=== PATIENT | female | born 1950 | race Caucasian/White ===

== ENCOUNTER 2019-02-02 11:51 | Inpatient (IN) | payer MEDICARE, BC, SELFPAY ==
[2019-02-02] VITALS (12 sets, daily range): BP systolic 89–121; BP diastolic 52–76; PULSE 68–94; RESP 14–22; TEMP 35.6–37.5; O2SAT 96–100; BMI 13.6
--- NOTE | 2019-02-02 | DI.CT.S_ITS ---
PROCEDURE: CT ANGIO CHEST ABDOMEN PELVIS INDICATIONS: RUQ abd pain, cachectic, BMI 13.6 TECHNIQUE: Precontrast 5 mm thick sections acquired from the lung apices to the iliac crests. After the administration of intravenous contrast, 2.5 mm thick sections again acquired from the lung apices to the iliac crests. Maximum intensity projection (MIP) oblique sagittal and coronal reformats were then acquired. For radiation dose reduction, the following was used: automated exposure control. COMPARISON: None. FINDINGS: Image quality: Excellent. AORTA and its attachments: Ascending aorta is normal in caliber without dissection or significant stenosis. Classic 3 vessel arch anatomy. Great vessel origins are widely patent. Transverse arch and descending thoracic aorta are normal in caliber without dissection. There is diffuse atherosclerosis of the abdominal aorta without significant stenosis. There is bilateral iliac disease. There is probable significant proximal left external iliac artery stenosis. There is mild celiac stenosis and moderate SMA stenosis. CHEST: Lungs and pleura: No acute airspace opacities. There is a metastatic nodule in the medial segment of the right middle lobe measuring 1 cm. It abuts the pleura. No pleural effusions or pneumothorax. Central and peripheral airways are patent and normal in caliber. Mediastinum: Heart size is normal. No pericardial effusion. There is a large mediastinal metastatic mass immediately to the left of the main pulmonary artery. It measures 4.3 x 2.6 cm. There is a Central pulmonary arteries are normal in size. Esophagus is normal in caliber. No hiatal hernias. Bones and chest wall: No axillary adenopathy by size criteria. theNo suspicious bony lesions. No vertebral body compression fractures. ABDOMEN: Vasculature: Celiac trunk and mesenteric arteries are patent. Renal arteries are also patent. Solid organs: There is a huge left renal mass consistent with a renal cell carcinoma measuring 6.9 x 12.2 x 9.7 cm. And obstructs the left kidney, with marked left hydronephrosis. The left adrenal contains 2 very large metastatic lesions, measuring 6.4 x 4.2 cm and 4.6 x 3.5 cm respectively. There is a very large bulky left para-aortic lymphadenopathy. The largest sin mediastinal metastatic lesion, gle left para-aortic lymph node measures 6.1 x 5.1 cm. It deviates the aorta to the right. There is probable liver metastatic disease. This is not definite. Gallbladder is unremarkable. Biliary system is non dilated. Pancreas enhances normally. Spleen is normal in size and enhancement. No adrenal nodules. Both kidneys are normal in size and enhancement, without hydronephrosis. Peritoneum and bowel: No free fluid or air. Bowel loops are normal in caliber and wall thickness. Nodes and vessels: Massive left periaortic lymphadenopathy as described above. Inferior vena cava is normal in morphology. Miscellaneous: No ventral hernias. Large PELVIS: Genitourinary: Bladder wall thickness is normal. Miscellaneous: No inguinal hernias or adenopathy. No ventral hernias. Bones: No suspicious bony lesions. No vertebral body compression fractures. IMPRESSION: 1. Massive left renal cell carcinoma, which obstructs the left kidney, resulting in marked hydronephrosis. 2. Large mediastinal metastatic lesion, right pulmonary metastatic lesion. 3. There are 2 very large left adrenal metastatic lesions. 4. Massive left para-aortic metastatic adenopathy, deviating the aorta to the right. 5. Unremarkable thoracic aorta. Abdominal aorta has atherosclerotic disease. There is probable left iliac stenotic disease. Dictated by: Shu Duff (aortic lymphadenopathy which deviates the aorta to the right. It measures 6.1 x 5.1 cm. on 02/02/2019 at 21:59 Approved by: Aaron Gutierrez M.D. on 02/02/2019 at 22:16
--- NOTE | 2019-02-02 12:22 | ED.WEAKNESS ---
HPI - Weakness General Chief complaint: Weakness Stated complaint: Not eating/passed out Time Seen by Provider: 02/02/19 12:12 Source: patient and family (,grand daughter) Mode of arrival: wheelchair Limitations: no limitations History of Present Illness HPI Narrative: This is a 68-year-old female who was with her family today and had an episode where she passed out while sitting down for breakfast. states that she has been falling down frequently, possibly multiple episodes of syncope. Patient has not been eating much. Family states she has not been eating much for several months. Patient is extremely underweight. Patient states she is just not hungry. She has family states she has often complaining of pain, she describes in her right ovary. Patient states she does have some pain sort of in her chest. Patient states she always feels a little short of breath. she denies any nausea or vomiting. she states she often has diarrhea. She states she has been urinating. She does smoke about a pack per day. Patient was drinking 2-3 containers of boxed wine weekly until recently, she has since decreased. She has a family history of cancer with her mother dying of cancer. She had surgery with ovarian cyst removal. Per family about 10 years ago patient had sort of a seizure like episode and after that she was not normal, the states she was sort of confused and out of it for a very long time. He states more recently she has actually been with it and appropriate. He states she does not talk to her regularly. She has not seen a physician in 8 or 9 years. Related Data Home Medications Medication Instructions Recorded Confirmed naproxen sodium [Aleve] 440 mg PO BIDCC #0 10/05/12 02/02/19 Allergies Allergy/AdvReac Type Severity Reaction Status Date / Time Lidocaine Allergy Unknown Uncoded 01/23/18 12:58 Procaine Allergy Unknown Uncoded 01/23/18 12:58 SULFA (sulfonamide) AdvReac Unknown Uncoded 01/23/18 12:58 Review of Systems Review of Systems ROS Unobtainable: All systems reviewed & are unremarkable except as noted in HPI and below Constitutional Denies chills, Reports fatigue, Denies fever(s), Denies lethargy and Denies weakness Cardiovascular Reports chest pain, Denies chest pain at rest, Denies diaphoresis, Reports syncope, Denies rapid heart rate, Denies edema, Reports dyspnea and Denies orthopnea Respiratory Denies chest congestion, Reports cough, Denies excessive phlegm production, Reports dyspnea and Denies wheezing Gastrointestinal Gastrointestinal: Denies abdominal pain, Denies change in bowel habits, Reports diarrhea (Office in daily basis), Denies nausea and Denies vomiting Genitourinary Denies hematuria, Denies urinary frequency, Denies flank pain, Denies urinary incontinence, Denies urinary hesitancy and Denies urinary urgency Neurologic Reports syncope and Denies weakness Endocrine Reports change in body appearance (weight loss.), Reports cold intolerance and Reports fatigue Allergic/Immunologic Denies wheezing PFSH Social History Smoking Status: Current every day smoker Social History household members: spouse Smoking Status: Current every day smoker Exam Narrative Exam Narrative: GEN: Extremely cachectic female, alert and oriented, patient appears to be in mild distress. Strong smell of tobacco smoke. HEENT: Atraumatic, pupils are equal round reactive to light, extraocular movements are intact, nares are clear, dry mucous membranes. HEART: Regular rate and rhythm without murmur, clicks, rubs. Pulses are equal in upper and lower extremities LUNGS:Lungs clear to auscultation, no wheezes, rales, crackles, chest moves symmetrically, no tachypnea, no crackles wheezes or rales. ABD:bowel sounds normal, abdomen concave, non-tender, no guarding, rebound, rigidity, no masses noted, no hepatosplenomegaly :No CVA tenderness MSCL: Non-tender, generalized muscle atrophy, full range of motion of upper extremities. NEURO:CN 2-12 intact, sensation normal SKIN: hyperpigmented skin. Initial Vital Signs Initial Vital Signs: Vital Signs Temperature 96.1 F L 02/02/19 12:14 Pulse Rate 94 H 02/02/19 12:14 Respiratory Rate 15 02/02/19 12:14 Blood Pressure 96/62 02/02/19 12:14 Pulse Oximetry 100 02/02/19 12:14 Course Orders Ordered: ED Orders 02/02/19 12:41 XR chest 1V Stat 02/02/19 13:04 Ammonia (NH3) Stat Complete Blood Count AUTO DIFF Stat Comprehensive Metabolic Panel Stat Thyroid Stimulating Hormone Stat Troponin & CK Cardiac Panel Stat 02/02/19 14:16 Lactate (Lactic Acid) Stat Partial Thromboplastin Time Stat Prothrombin Time INR Stat 02/02/19 15:46 Ictotest Urine Stat Urinalysis and Microscopic Stat Urine Culture Stat 02/02/19 17:52 Education, smoking cessation ONGOING Discontinued Medications Sodium Chloride (Normal Saline 0.9%) 1,000 mls @ 1,000 mls/hr IV BOLUS ONE Stop: 02/02/19 13:39 Last Infusion: 02/02/19 13:51 Dose: 0 mls/hr Admin: 02/02/19 12:45 Dose: 1,000 mls/hr Sodium Chloride (Normal Saline 0.9%) 500 mls @ 1,000 mls/hr IV BOLUS ONE Stop: 02/02/19 14:26 Last Infusion: 02/02/19 16:58 Dose: 0 mls/hr Admin: 02/02/19 14:02 Dose: 1,000 mls/hr Vital Signs - 8 hr 02/02/19 12:14 02/02/19 12:30 02/02/19 13:08 Temperature 96.1 F L Pulse Rate 94 H 77 77 Respiratory Rate 15 18 22 Blood Pressure 96/62 Blood Pressure [Right Arm] 90/63 94/60 Pulse Oximetry 100 100 98 02/02/19 13:30 02/02/19 14:00 02/02/19 14:51 Temperature Pulse Rate 82 79 68 Respiratory Rate 14 21 15 Blood Pressure Blood Pressure [Right Arm] 101/57 L 108/68 121/76 Pulse Oximetry 100 97 99 02/02/19 16:00 02/02/19 16:30 02/02/19 17:14 Temperature Pulse Rate 70 69 78 Respiratory Rate 15 15 16 Blood Pressure Blood Pressure [Right Arm] 105/71 98/60 113/74 Pulse Oximetry 96 02/02/19 17:50 Temperature 99.5 F Pulse Rate 85 Respiratory Rate 18 Blood Pressure 109/68 Blood Pressure [Right Arm] Pulse Oximetry 100 MDM - Weakness Lab Data Attestation: I reviewed the patient's lab results. Result diagrams: 02/02/19 13:04 02/02/19 13:04 Lab Results 02/02/19 02/02/19 02/02/19 Range/Units 13:04 13:04 13:04 WBC 11.9 H (4.5-11.0) X10^3/uL RBC 4.18 (4.0-5.2) X10^6/uL Hgb 10.3 L (12.0-16.0) g/dL Hct 33.3 L (36-46) % MCV 79.7 L (80-100) fL MCH 24.7 L (26-34) PG MCHC 31.0 (30-36) % RDW 16.9 H (11.6-14.8) % Plt Count 305 (150-400) X10^3/uL Neut % (Auto) 84.4 H (50-75) % Lymph % (Auto) 7.8 L (25-40) % [place] % (Auto) 7.2 (3-14) % Eos % (Auto) 0.2 L (2-4) % Baso % (Auto) 0.4 (0-2) % Neut # (Auto) 17778 H (6202-2378) /uL Lymph # (Auto) 900 L (3518-6148) /uL [place] # (Auto) 900 (0-900) /uL Eos # (Auto) 0 (0-450) /uL Baso # (Auto) 0 (0-100) /uL PT (10.1-12.7) SECONDS INR (0.9-1.3) APTT (26.4-36.2) SECONDS Sodium 132 L (137-145) mmol/L Potassium 5.1 (3.4-5.1) mmol/L Chloride 99 (98-107) mmol/L Carbon Dioxide 20 L (22-32) mmol/L BUN 28 H (7-17) mg/dL Creatinine 1.30 H (0.52-1.04) mg/dL Estimated GFR 40.6 L (>60) mL/min BUN/Creatinine Ratio 21.5 (6-22) Glucose 120 H (80-110) mg/dL Lactate (0.7-2.1) mmol/L Calcium 9.0 (8.4-10.2) mg/dL Total Bilirubin 0.3 (0.2-1.3) mg/dL AST 26 (14-36) IU/L ALT 8 L (9-52) IU/L Alkaline Phosphatase 96 (38-126) U/L Ammonia < 9.0 L (9-30) umol/L Total Creatine Kinase 167 H (30-135) U/L CK-MB (CK-2) 2.03 (<2.37) ng/mL CK-MB (CK-2) Rel Index 1.2 L (1.5-5.0) % Troponin I < 0.012 (0.01-0.034) ng/mL Total Protein 7.1 (6.3-8.2) g/dL Albumin 3.1 L (3.5-5.0) g/dL Globulin 4.0 (1.7-4.1) g/dL Albumin/Globulin Ratio 0.8 L (1.0-2.8) TSH (0.47-4.68) uIU/mL Urine Color Urine Appearance Urine pH (4.5-8.0) Ur Specific [place] (1.000-1.035) Urine Protein (Negative) Urine Glucose (UA) (Negative) g/dL Urine Ketones (NEGATIVE) Urine Occult Blood (Negative) Urine Nitrate (Negative) Urine Bilirubin (NEGATIVE) Urine Ictotest (Negative) Urine Urobilinogen (0.2) E.U./dL Ur Leukocyte Esterase (NEGATIVE) Urine RBC (0-5/HPF) Urine WBC (0-5/HPF) Ur Squamous Epith Cells (0-5/HPF) Amorphous Sediment Urine Bacteria (None) Hyaline Casts (None) Urine Mucus (Negative) Ur Culture Indicated? 02/02/19 02/02/19 02/02/19 Range/Units 13:04 14:16 14:16 WBC (4.5-11.0) X10^3/uL RBC (4.0-5.2) X10^6/uL Hgb (12.0-16.0) g/dL Hct (36-46) % MCV (80-100) fL MCH (26-34) PG MCHC (30-36) % RDW (11.6-14.8) % Plt Count (150-400) X10^3/uL Neut % (Auto) (50-75) % Lymph % (Auto) (25-40) % [place] % (Auto) (3-14) % Eos % (Auto) (2-4) % Baso % (Auto) (0-2) % Neut # (Auto) (2989-2365) /uL Lymph # (Auto) (2854-0601) /uL [place] # (Auto) (0-900) /uL Eos # (Auto) (0-450) /uL Baso # (Auto) (0-100) /uL PT 12.8 H (10.1-12.7) SECONDS INR 1.1 (0.9-1.3) APTT 27 (26.4-36.2) SECONDS Sodium (137-145) mmol/L Potassium (3.4-5.1) mmol/L Chloride (98-107) mmol/L Carbon Dioxide (22-32) mmol/L BUN (7-17) mg/dL Creatinine (0.52-1.04) mg/dL Estimated GFR (>60) mL/min BUN/Creatinine Ratio (6-22) Glucose (80-110) mg/dL Lactate 2.1 (0.7-2.1) mmol/L Calcium (8.4-10.2) mg/dL Total Bilirubin (0.2-1.3) mg/dL AST (14-36) IU/L ALT (9-52) IU/L Alkaline Phosphatase (38-126) U/L Ammonia (9-30) umol/L Total Creatine Kinase (30-135) U/L CK-MB (CK-2) (<2.37) ng/mL CK-MB (CK-2) Rel Index (1.5-5.0) % Troponin I (0.01-0.034) ng/mL Total Protein (6.3-8.2) g/dL Albumin (3.5-5.0) g/dL Globulin (1.7-4.1) g/dL Albumin/Globulin Ratio (1.0-2.8) TSH 6.14 H (0.47-4.68) uIU/mL Urine Color Urine Appearance Urine pH (4.5-8.0) Ur Specific [place] (1.000-1.035) Urine Protein (Negative) Urine Glucose (UA) (Negative) g/dL Urine Ketones (NEGATIVE) Urine Occult Blood (Negative) Urine Nitrate (Negative) Urine Bilirubin (NEGATIVE) Urine Ictotest (Negative) Urine Urobilinogen (0.2) E.U./dL Ur Leukocyte Esterase (NEGATIVE) Urine RBC (0-5/HPF) Urine WBC (0-5/HPF) Ur Squamous Epith Cells (0-5/HPF) Amorphous Sediment Urine Bacteria (None) Hyaline Casts (None) Urine Mucus (Negative) Ur Culture Indicated? 02/02/19 Range/Units 15:46 WBC (4.5-11.0) X10^3/uL RBC (4.0-5.2) X10^6/uL Hgb (12.0-16.0) g/dL Hct (36-46) % MCV (80-100) fL MCH (26-34) PG MCHC (30-36) % RDW (11.6-14.8) % Plt Count (150-400) X10^3/uL Neut % (Auto) (50-75) % Lymph % (Auto) (25-40) % [place] % (Auto) (3-14) % Eos % (Auto) (2-4) % Baso % (Auto) (0-2) % Neut # (Auto) (7691-0868) /uL Lymph # (Auto) (7281-5979) /uL [place] # (Auto) (0-900) /uL Eos # (Auto) (0-450) /uL Baso # (Auto) (0-100) /uL PT (10.1-12.7) SECONDS INR (0.9-1.3) APTT (26.4-36.2) SECONDS Sodium (137-145) mmol/L Potassium (3.4-5.1) mmol/L Chloride (98-107) mmol/L Carbon Dioxide (22-32) mmol/L BUN (7-17) mg/dL Creatinine (0.52-1.04) mg/dL Estimated GFR (>60) mL/min BUN/Creatinine Ratio (6-22) Glucose (80-110) mg/dL Lactate (0.7-2.1) mmol/L Calcium (8.4-10.2) mg/dL Total Bilirubin (0.2-1.3) mg/dL AST (14-36) IU/L ALT (9-52) IU/L Alkaline Phosphatase (38-126) U/L Ammonia (9-30) umol/L Total Creatine Kinase (30-135) U/L CK-MB (CK-2) (<2.37) ng/mL CK-MB (CK-2) Rel Index (1.5-5.0) % Troponin I (0.01-0.034) ng/mL Total Protein (6.3-8.2) g/dL Albumin (3.5-5.0) g/dL Globulin (1.7-4.1) g/dL Albumin/Globulin Ratio (1.0-2.8) TSH (0.47-4.68) uIU/mL Urine Color Yellow Urine Appearance Cloudy Urine pH 5.0 (4.5-8.0) Ur Specific [place] 1.025 (1.000-1.035) Urine Protein 2+ H (Negative) Urine Glucose (UA) Trace H (Negative) g/dL Urine Ketones Negative (NEGATIVE) Urine Occult Blood 3+ H (Negative) Urine Nitrate Negative (Negative) Urine Bilirubin 2+ H (NEGATIVE) Urine Ictotest Negative (Negative) Urine Urobilinogen 0.2 (0.2) E.U./dL Ur Leukocyte Esterase Trace H (NEGATIVE) Urine RBC 10-30/hpf H (0-5/HPF) Urine WBC 30-100/hpf H (0-5/HPF) Ur Squamous Epith Cells 1-5 /hpf (0-5/HPF) Amorphous Sediment 3+ Urine Bacteria Few (2-10) H (None) Hyaline Casts 1-5/lpf (None) Urine Mucus 1+ H (Negative) Ur Culture Indicated? Specimen cultured Point of Care Testing Glucose POC 133 Imaging Data Chest x-ray: Radiologist's impression: [place] [address] XRay Report Signed Patient: Cali White#: [id number] : 9Acct:[id number] Age/Sex: 68 / FDate of Service: 02/02/19 Loc: ED Accession Number: [id number] Procedure: XR chest 1V Ordering Provider: Chaparrita Miller D.O. PROCEDURE: XR CHEST 1V INDICATIONS: syncope, cachectic TECHNIQUE: One view of the chest was acquired. COMPARISON: [facility], CT, THORAX WITHOUT CONTRAST, 08/19/2009, 11:41. [facility], CR, CHEST 1 VIEW, 09/07/2010, 5:34. FINDINGS: Surgical changes and devices: None. Lungs and pleura: Lungs are clear. No pleural effusions or pneumothorax. Mediastinum: Mediastinal contours appear normal. Heart size is normal. Bones and chest wall: No suspicious bony lesions. Overlying soft tissues appear unremarkable. IMPRESSION: No evidence acute pulmonary process. Dictated by: Aaron Gutierrez M.D. on 02/02/2019 at 13:24 Approved by: Aaron Gutierrez M.D. on 02/02/2019 at 13:25 ECG Data Attestation: I personally reviewed and interpreted this ECG as follows: Interpretation: Difficult to obtain adequate tracing secondary to breathing and patient is very thin body habitus. Patient is the rate is 87, P is 167 QRS is 89 and QTC is 451. No clear ST elevations although there is quite a bit of artifact in V1 2 and 3. MDM Narrative Medical decision making narrative: Patient's lab work shows multiple abnormalities but nothing significant enough to cause her weight loss. Patient is anemic with a hemoglobin of 10, she has a microcytic anemia. Slightly elevated white count, her sodium is 132, bicarb is 20 with a BUN of 28 and creatinine 1.3 she does appear to be dehydrated and was given 2 L of fluid total she had a slight improvement of her blood pressure but continued to be in the low range and dipping into the 90s regularly. This may be somewhat her normal blood pressure as she is so small. Glucose was 120, did get a pneumonia which was less than 9, patient's troponin was negative and her TSH is elevated at 6 although I would expect with her decrease in weight for her to be hyperthyroid and not hypothyroid. Patient continues to feel lightheaded. According to her she has had multiple episodes of falling being found on the floor syncopal episodes in the last week. I did ask social work to evaluate and they suspect there is also a psychiatric component which I agree with. There is concern for cancer as well as variety of other causes. I spoke with Dr. Durand secondary to her syncope risk he is willing to accept her for observation and help her get established with primary and further evaluation. I was clear with patient and family based on her weight if she continues to have weight loss her body will not be able to tolerate and will result in . Discharge Plan Departure Patient Disposition: Admitted as Observation Clinical Impression: Syncope, Weakness, Malnutrition Discharge Date/Time: 02/02/19 17:58 Interventions: ED Discharge Assessment Last Done: 02/02/19 17:57 Referrals: Jose L Menon MD [Primary Care Provider] - Admit Date/Time: 02/02/19 17:39 Admit Provider: Mychal Durand
--- NOTE | 2019-02-02 12:41 | DI.RAD.S_ITS ---
PROCEDURE: XR CHEST 1V INDICATIONS: syncope, cachectic TECHNIQUE: One view of the chest was acquired. COMPARISON: [facility], CT, THORAX WITHOUT CONTRAST, 08/19/2009, 11:41. [facility], CR, CHEST 1 VIEW, 09/07/2010, 5:34. FINDINGS: Surgical changes and devices: None. Lungs and pleura: Lungs are clear. No pleural effusions or pneumothorax. Mediastinum: Mediastinal contours appear normal. Heart size is normal. Bones and chest wall: No suspicious bony lesions. Overlying soft tissues appear unremarkable. IMPRESSION: No evidence acute pulmonary process. Dictated by: Aaron Gutierrez M.D. on 02/02/2019 at 13:24 Approved by: Aaron Gutierrez M.D. on 02/02/2019 at 13:25
[2019-02-02] MEDS: SODIUM CHLORIDE 0.9% 1,000 ML 1000 ML IV (12:45)
--- NOTE | 2019-02-02 12:47 | ED_ITS ---
HPI - Weakness General Chief complaint: Weakness Stated complaint: Not eating/passed out Time Seen by Provider: 02/02/19 12:12 Source: patient and family (,grand daughter) Mode of arrival: wheelchair Limitations: no limitations History of Present Illness HPI Narrative: This is a 68-year-old female who was with her family today and had an episode where she passed out while sitting down for breakfast. states that she has been falling down frequently, possibly multiple episodes of syncope. Patient has not been eating much. Family states she has not been eating much for several months. Patient is extremely underweight. Patient states she is just not hungry. She has family states she has often complaining of pain, she describes in her right ovary. Patient states she does have some pain sort of in her chest. Patient states she always feels a little short of breath. she denies any nausea or vomiting. she states she often has diarrhea. She states she has been urinating. She does smoke about a pack per day. Patient was drinking 2-3 containers of boxed wine weekly until recently, she has since decreased. She has a family history of cancer with her mother dying of cancer. She had surgery with ovarian cyst removal. Per family about 10 years ago patient had sort of a seizure like episode and after that she was not normal, the states she was sort of confused and out of it for a very long time. He states more recently she has actually been with it and appropriate. He states she does not talk to her regularly. She has not seen a physician in 8 or 9 years. Related Data Home Medications Medication Instructions Recorded Confirmed naproxen sodium [Aleve] 440 mg PO BIDCC #0 10/05/12 02/02/19 Allergies Allergy/AdvReac Type Severity Reaction Status Date / Time Lidocaine Allergy Unknown Uncoded 01/23/18 12:58 Procaine Allergy Unknown Uncoded 01/23/18 12:58 SULFA (sulfonamide) AdvReac Unknown Uncoded 01/23/18 12:58 Review of Systems Review of Systems ROS Unobtainable: All systems reviewed & are unremarkable except as noted in HPI and below Constitutional Denies chills, Reports fatigue, Denies fever(s), Denies lethargy and Denies weakness Cardiovascular Reports chest pain, Denies chest pain at rest, Denies diaphoresis, Reports syncope, Denies rapid heart rate, Denies edema, Reports dyspnea and Denies orth opnea Respiratory Denies chest congestion, Reports cough, Denies excessive phlegm production, Reports dyspnea and Denies wheezing Gastrointestinal Gastrointestinal: Denies abdominal pain, Denies change in bowel habits, Reports diarrhea (Office in daily basis), Denies nausea and Denies vomiting Genitourinary Denies hematuria, Denies urinary frequency, Denies flank pain, Denies urinary incontinence, Denies urinary hesitancy and Denies urinary urgency Neurologic Reports syncope and Denies weakness Endocrine Reports change in body appearance (weight loss.), Reports cold intolerance and Reports fatigue Allergic/Immunologic Denies wheezing PFSH Social History Smoking Status: Current every day smoker Social History household members: spouse Smoking Status: Current every day smoker Exam Narrative Exam Narrative: GEN: Extremely cachectic female, alert and oriented, patient appears to be in mild distress. Strong smell of tobacco smoke. HEENT: Atraumatic, pupils are equal round reactive to light, extraocular movements are intact, nares are clear, dry mucous membranes. HEART: Regular rate and rhythm without murmur, clicks, rubs. Pulses are equal in upper and lower extremities LUNGS:Lungs clear to auscultation, no wheezes, rales, crackles, chest moves symmetrically, no tachypnea, no crackles wheezes or rales. ABD:bowel sounds normal, abdomen concave, non-tender, no guarding, rebound, rigidity, no masses noted, no hepatosplenomegaly :No CVA tenderness MSCL: Non-tender, generalized muscle atrophy, full range of motion of upper extremities. NEURO:CN 2-12 intact, sensation normal SKIN: hyperpigmented skin. Initial Vital Signs Initial Vital Signs: Vital Signs Temperature 96.1 F L 02/02/19 12:14 Pulse Rate 94 H 02/02/19 12:14 Respiratory Rate 15 02/02/19 12:14 Blood Pressure 96/62 02/02/19 12:14 Pulse Oximetry 100 02/02/19 12:14 Course Orders Ordered: ED Orders 02/02/19 12:41 XR chest 1V Stat 02/02/19 13:04 Ammonia (NH3) Stat Complete Blood Count AUTO DIFF Stat Comprehensive Metabolic Panel Stat Thyroid Stimulating Hormone Stat Troponin & CK Cardiac Panel Stat 02/02/19 14:16 Lactate (Lactic Acid) Stat Partial Thromboplastin Time Stat Prothrombin Time INR Stat 02/02/19 15:46 Ictotest Urine Stat Urinalysis and Microscopic Stat Urine Culture Stat 02/02/19 17:52 Education, smoking cessation ONGOING Discontinued Medications Sodium Chloride (Normal Saline 0.9%) 1,000 mls @ 1,000 mls/hr IV BOLUS ONE Stop: 02/02/19 13:39 Last Infusion: 02/02/19 13:51 Dose: 0 mls/hr Admin: 02/02/19 12:45 Dose: 1,000 mls/hr Sodium Chloride (Normal Saline 0.9%) 500 mls @ 1,000 mls/hr IV BOLUS ONE Stop: 02/02/19 14:26 Last Infusion: 02/02/19 16:58 Dose: 0 mls/hr Admin: 02/02/19 14:02 Dose: 1,000 mls/hr Vital Signs - 8 hr 02/02/19 12:14 02/02/19 12:30 02/02/19 13:08 Temperature 96.1 F L Pulse Rate 94 H 77 77 Respiratory Rate 15 18 22 Blood Pressure 96/62 Blood Pressure [Right Arm] 90/63 94/60 Pulse Oximetry 100 100 98 02/02/19 13:30 02/02/19 14:00 02/02/19 14:51 Temperature Pulse Rate 82 79 68 Respiratory Rate 14 21 15 Blood Pressure Blood Pressure [Right Arm] 101/57 L 108/68 121/76 Pulse Oximetry 100 97 99 02/02/19 16:00 02/02/19 16:30 02/02/19 17:14 Temperature Pulse Rate 70 69 78 Respiratory Rate 15 15 16 Blood Pressure Blood Pressure [Right Arm] 105/71 98/60 113/74 Pulse Oximetry 96 02/02/19 17:50 Temperature 99.5 F Pulse Rate 85 Respiratory Rate 18 Blood Pressure 109/68 Blood Pressure [Right Arm] Pulse Oximetry 100 MDM - Weakness Lab Data Attestation: I reviewed the patient's lab results. Result diagrams: 02/02/19 13:04 02/02/19 13:04 Lab Results 02/02/19 02/02/19 02/02/19 Range/Units 13:04 13:04 13:04 WBC 11.9 H (4.5-11.0) X10^3/uL RBC 4.18 (4.0-5.2) X10^6/uL Hgb 10.3 L (12.0-16.0) g/dL Hct 33.3 L (36-46) % MCV 79.7 L (80-100) fL MCH 24.7 L (26-34) PG MCHC 31.0 (30-36) % RDW 16.9 H (11.6-14.8) % Plt Count 305 (150-400) X10^3/uL Neut % (Auto) 84.4 H (50-75) % Lymph % (Auto) 7.8 L (25-40) % [place] % (Auto) 7.2 (3-14) % Eos % (Auto) 0.2 L (2-4) % Baso % (Auto) 0.4 (0-2) % Neut # (Auto) 27837 H (7917-4265) /uL Lymph # (Auto) 900 L (0276-6385) /uL [place] # (Auto) 900 (0-900) /uL Eos # (Auto) 0 (0-450) /uL Baso # (Auto) 0 (0-100) /uL PT (10.1-12.7) SECONDS INR (0.9-1.3) APTT (26.4-36.2) SECONDS Sodium 132 L (137-145) mmol/L Potassium 5.1 (3.4-5.1) mmol/L Chloride 99 (98-107) mmol/L Carbon Dioxide 20 L (22-32) mmol/L BUN 28 H (7-17) mg/dL Creatinine 1.30 H (0.52-1.04) mg/dL Estimated GFR 40.6 L (>60) mL/min BUN/Creatinine Ratio 21.5 (6-22) Glucose 120 H (80-110) mg/dL Lactate (0.7-2.1) mmol/L Calcium 9.0 (8.4-10.2) mg/dL Total Bilirubin 0.3 (0.2-1.3) mg/dL AST 26 (14-36) IU/L ALT 8 L (9-52) IU/L Alkaline Phosphatase 96 (38-126) U/L Ammonia < 9.0 L (9-30) umol/L Total Creatine Kinase 167 H (30-135) U/L CK-MB (CK-2) 2.03 (<2.37) ng/mL CK-MB (CK-2) Rel Index 1.2 L (1.5-5.0) % Troponin I < 0.012 (0.01-0.034) ng/mL Total Protein 7.1 (6.3-8.2) g/dL Albumin 3.1 L (3.5-5.0) g/dL Globulin 4.0 (1.7-4.1) g/dL Albumin/Globulin Ratio 0.8 L (1.0-2.8) TSH (0.47-4.68) uIU/mL Urine Color Urine Appearance Urine pH (4.5-8.0) Ur Specific [place] (1.000-1.035) Urine Protein (Negative) Urine Glucose (UA) (Negative) g/dL Urine Ketones (NEGATIVE) Urine Occult Blood (Negative) Urine Nitrate (Negative) Urine Bilirubin (NEGATIVE) Urine Ictotest (Negative) Urine Urobilinogen (0.2) E.U./dL Ur Leukocyte Esterase (NEGATIVE) Urine RBC (0-5/HPF) Urine WBC (0-5/HPF) Ur Squamous Epith Cells (0-5/HPF) Amorphous Sediment Urine Bacteria (None) Hyaline Casts (None) Urine Mucus (Negative) Ur Culture Indicated? 02/02/19 02/02/19 02/02/19 Range/Units 13:04 14:16 14:16 WBC (4.5-11.0) X10^3/uL RBC (4.0-5.2) X10^6/uL Hgb (12.0-16.0) g/dL Hct (36-46) % MCV (80-100) fL MCH (26-34) PG MCHC (30-36) % RDW (11.6-14.8) % Plt Count (150-400) X10^3/uL Neut % (Auto) (50-75) % Lymph % (Auto) (25-40) % [place] % (Auto) (3-14) % Eos % (Auto) (2-4) % Baso % (Auto) (0-2) % Neut # (Auto) (3295-1543) /uL Lymph # (Auto) (8536-2194) /uL [place] # (Auto) (0-900) /uL Eos # (Auto) (0-450) /uL Baso # (Auto) (0-100) /uL PT 12.8 H (10.1-12.7) SECONDS INR 1.1 (0.9-1.3) APTT 27 (26.4-36.2) SECONDS Sodium (137-145) mmol/L Potassium (3.4-5.1) mmol/L Chloride (98-107) mmol/L Carbon Dioxide (22-32) mmol/L BUN (7-17) mg/dL Creatinine (0.52-1.04) mg/dL Estimated GFR (>60) mL/min BUN/Creatinine Ratio (6-22) Glucose (80-110) mg/dL Lactate 2.1 (0.7-2.1) mmol/L Calcium (8.4-10.2) mg/dL Total Bilirubin (0.2-1.3) mg/dL AST (14-36) IU/L ALT (9-52) IU/L Alkaline Phosphatase (38-126) U/L Ammonia (9-30) umol/L Total Creatine Kinase (30-135) U/L CK-MB (CK-2) (<2.37) ng/mL CK-MB (CK-2) Rel Index (1.5-5.0) % Troponin I (0.01-0.034) ng/mL Total Protein (6.3-8.2) g/dL Albumin (3.5-5.0) g/dL Globulin (1.7-4.1) g/dL Albumin/Globulin Ratio (1.0-2.8) TSH 6.14 H (0.47-4.68) uIU/mL Urine Color Urine Appearance Urine pH (4.5-8.0) Ur Specific [place] (1.000-1.035) Urine Protein (Negative) Urine Glucose (UA) (Negative) g/dL Urine Ketones (NEGATIVE) Urine Occult Blood (Negative) Urine Nitrate (Negative) Urine Bilirubin (NEGATIVE) Urine Ictotest (Negative) Urine Urobilinogen (0.2) E.U./dL Ur Leukocyte Esterase (NEGATIVE) Urine RBC (0-5/HPF) Urine WBC (0-5/HPF) Ur Squamous Epith Cells (0-5/HPF) Amorphous Sediment Urine Bacteria (None) Hyaline Casts (None) Urine Mucus (Negative) Ur Culture Indicated? 02/02/19 Range/Units 15:46 WBC (4.5-11.0) X10^3/uL RBC (4.0-5.2) X10^6/uL Hgb (12.0-16.0) g/dL Hct (36-46) % MCV (80-100) fL MCH (26-34) PG MCHC (30-36) % RDW (11.6-14.8) % Plt Count (150-400) X10^3/uL Neut % (Auto) (50-75) % Lymph % (Auto) (25-40) % [place] % (Auto) (3-14) % Eos % (Auto) (2-4) % Baso % (Auto) (0-2) % Neut # (Auto) (0618-3886) /uL Lymph # (Auto) (5512-9931) /uL [place] # (Auto) (0-900) /uL Eos # (Auto) (0-450) /uL Baso # (Auto) (0-100) /uL PT (10.1-12.7) SECONDS INR (0.9-1.3) APTT (26.4-36.2) SECONDS Sodium (137-145) mmol/L Potassium (3.4-5.1) mmol/L Chloride (98-107) mmol/L Carbon Dioxide (22-32) mmol/L BUN (7-17) mg/dL Creatinine (0.52-1.04) mg/dL Estimated GFR (>60) mL/min BUN/Creatinine Ratio (6-22) Glucose (80-110) mg/dL Lactate (0.7-2.1) mmol/L Calcium (8.4-10.2) mg/dL Total Bilirubin (0.2-1.3) mg/dL AST (14-36) IU/L ALT (9-52) IU/L Alkaline Phosphatase (38-126) U/L Ammonia (9-30) umol/L Total Creatine Kinase (30-135) U/L CK-MB (CK-2) (<2.37) ng/mL CK-MB (CK-2) Rel Index (1.5-5.0) % Troponin I (0.01-0.034) ng/mL Total Protein (6.3-8.2) g/dL Albumin (3.5-5.0) g/dL Globulin (1.7-4.1) g/dL Albumin/Globulin Ratio (1.0-2.8) TSH (0.47-4.68) uIU/mL Urine Color Yellow Urine Appearance Cloudy Urine pH 5.0 (4.5-8.0) Ur Specific [place] 1.025 (1.000-1.035) Urine Protein 2+ H (Negative) Urine Glucose (UA) Trace H (Negative) g/dL Urine Ketones Negative (NEGATIVE) Urine Occult Blood 3+ H (Negative) Urine Nitrate Negative (Negative) Urine Bilirubin 2+ H (NEGATIVE) Urine Ictotest Negative (Negative) Urine Urobilinogen 0.2 (0.2) E.U./dL Ur Leukocyte Esterase Trace H (NEGATIVE) Urine RBC 10-30/hpf H (0-5/HPF) Urine WBC 30-100/hpf H (0-5/HPF) Ur Squamous Epith Cells 1-5 /hpf (0-5/HPF) Amorphous Sediment 3+ Urine Bacteria Few (2-10) H (None) Hyaline Casts 1-5/lpf (None) Urine Mucus 1+ H (Negative) Ur Culture Indicated? Specimen cultured Point of Care Testing Glucose POC 133 Imaging Data Chest x-ray: Radiologist's impression: [place] [address] XRay Report Signed Patient: Cali White#: [id number] : 9Acct:[id number] Age/Sex: 68 / FDate of Service: 02/02/19 Loc: ED Accession Number: [id number] Procedure: XR chest 1V Ordering Provider: Chaparrita Miller D.O. PROCEDURE: XR CHEST 1V INDICATIONS: syncope, cachectic TECHNIQUE: One view of the chest was acquired. COMPARISON: [facility], CT, THORAX WITHOUT CONTRAST, 08/19/2009, 11:41. [facility], CR, CHEST 1 VIEW, 09/07/2010, 5:34. FINDINGS: Surgical changes and devices: None. Lungs and pleura: Lungs are clear. No pleural effusions or pneumothorax. Mediastinum: Mediastinal contours appear normal. Heart size is normal. Bones and chest wall: No suspicious bony lesions. Overlying soft tissues appear unremarkable. IMPRESSION: No evidence acute pulmonary process. Dictated by: Aaron Gutierrez M.D. on 02/02/2019 at 13:24 Approved by: Aaron Gutierrez M.D. on 02/02/2019 at 13:25 ECG Data Attestation: I personally reviewed and interpreted this ECG as follows: Interpretation: Difficult to obtain adequate tracing secondary to breathing and patient is very thin body habitus. Patient is the rate is 87, P is 167 QRS is 89 and QTC is 451. No clear ST elevations although there is quite a bit of artifact in V1 2 and 3. MDM Narrative Medical decision making narrative: Patient's lab work shows multiple abnormalities but nothing significant enough to cause her weight loss. Patient is anemic with a hemoglobin of 10, she has a microcytic anemia. Slightly elevated white count, her sodium is 132, bicarb is 20 with a BUN of 28 and creatinine 1.3 she does appear to be dehydrated and was given 2 L of fluid total she had a slight improvement of her blood pressure but continued to be in the low range and dipping into the 90s regularly. This may be somewhat her normal blood pressure as she is so small. Glucose was 120, did get a pneumonia which was less than 9, patient's troponin was negative and her TSH is elevated at 6 although I would expect with her decrease in weight for her to be hyperthyroid and not hypothyroid. Patient continues to feel lightheaded. According to her she has had multiple episodes of falling being found on the floor syncopal episodes in the last week. I did ask social work to evaluate and they suspect there is also a psychiatric component which I agree with. There is concern for cancer as well as variety of other causes. I spoke with Dr. Durand secondary to her syncope risk he is willing to accept her for observation and help her get established with primary and further evaluation. I was clear with patient and family based on her weight if she continues to have weight loss her body will not be able to tolerate and will result in . Discharge Plan Departure Patient Disposition: Admitted as Observation Clinical Impression: Syncope, Weakness, Malnutrition Discharge Date/Time: 02/02/19 17:58 Interventions: ED Discharge Assessment Last Done: 02/02/19 17:57 Referrals: Jose L Menon MD [Primary Care Provider] - Admit Date/Time: 02/02/19 17:39 Admit Provider: Mychal Durand
[2019-02-02 13:08] LABS: Add Manual Diff / Slide Review NO; Basophils Absolute Auto 0 /uL (0-100); Basophils Percent Auto 0.4 % (0-2); Eosinophils Absolute Auto 0 /uL (0-450); Eosinophils Percent Auto 0.2 % (2-4); Hematocrit 33.3 % (36-46); Hemoglobin 10.3 g/dL (12.0-16.0); Lymphocytes Absolute Auto 900 /uL (1100-4500); Lymphocytes Percent Auto 7.8 % (25-40); Mean Corpuscular Hemoglobin 24.7 PG (26-34); Mean Corpuscular Volume 79.7 fL (80-100); Monocytes Absolute Auto 900 /uL (0-900); Monocytes Percent Auto 7.2 % (3-14); Neutrophils Absolute Auto 10000 /uL (1500-7000); Neutrophils Percent Auto 84.4 % (50-75); Platelet Count 305 X10^3/uL (150-400); Red Blood Cell Count 4.18 X10^6/uL (4.0-5.2); Red Cell Distribution Width 16.9 % (11.6-14.8); White Blood Cell Count 11.9 X10^3/uL (4.5-11.0)
[2019-02-02 13:17] LABS: Alanine Aminotransferase 8 IU/L (9-52); Albumin 3.1 g/dL (3.5-5.0); Albumin Globulin Ratio 0.8 (1.0-2.8); Alkaline Phosphatase 96 U/L (38-126); Aspartate Aminotransferase 26 IU/L (14-36); BUN Creatinine Ratio 21.5 (6-22); Bilirubin Total 0.3 mg/dL (0.2-1.3); Blood Urea Nitrogen 28 mg/dL (7-17); Carbon Dioxide 20 mmol/L (22-32); Chloride 99 mmol/L (98-107); Creatine Kinase 167 U/L (30-135); Estimated Glomerular Filt Rate 40.6 mL/min (>60); Glucose 120 mg/dL (80-110); HEMOLYSIS 23 (0-50); Potassium 5.1 mmol/L (3.4-5.1); Sodium 132 mmol/L (137-145); Total Protein 7.1 g/dL (6.3-8.2)
[2019-02-02 13:18] LABS: Ammonia (NH3) < 9.0 umol/L (9-30)
[2019-02-02 13:29] LABS: Troponin I < 0.012 ng/mL (0.01-0.034)
[2019-02-02 14:01] LABS: CKMB % Relative Index 1.2 % (1.5-5.0); Creatine Kinase MB 2.03 ng/mL (<2.37)
[2019-02-02] MEDS: SODIUM CHLORIDE 0.9% 500 ML 1000 ML IV (14:02)
[2019-02-02 14:25] LABS: INR 1.1 (0.9-1.3); Prothrombin Time 12.8 SECONDS (10.1-12.7)
[2019-02-02 14:27] LABS: PTT Partial Thromboplastin Tim 27 SECONDS (26.4-36.2)
[2019-02-02 14:28] LABS: Lactate (Lactic Acid) 2.1 mmol/L (0.7-2.1)
[2019-02-02 14:31] LABS: Thyroid Stimulating Hormone 6.14 uIU/mL (0.47-4.68)
[2019-02-02 15:51] LABS: Appearance Urine UA CLOUDY; Bilirubin Urine UA 2+ (NEGATIVE); Color Urine UA YELLOW; Glucose Urine UA TRACE g/dL (Negative); Ketones Urine UA NEGATIVE (NEGATIVE); Leukocyte Esterase Urine UA TRACE (NEGATIVE); Nitrite Urine UA NEGATIVE (Negative); Occult Blood Urine UA 3+ (Negative); Protein Urine UA 2+ (Negative); Specific Gravity Urine UA 1.025 (1.000-1.035); Urobilinogen Urine UA 0.2 E.U./dL (0.2)
[2019-02-02 16:01] LABS: Amorphous Sediment Urine 3+; Ictotest Urine Negative (Negative); RBC Urine 10-30/HPF (0-5/HPF); Squamous Epithelial Cell Urine 1-5 /HPF (0-5/HPF); WBC Urine 30-100/HPF (0-5/HPF)
[2019-02-02 16:02] LABS: Bacteria Urine Few (2-10); Hyaline Casts Urine 1-5/LPF; Mucus Urine 1+ (Negative)
[2019-02-02 16:03] LABS: Culture Indicated Urine Specimen Cultured
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
--- NOTE | 2019-02-02 18:53 | PC.NURSE ---
Addendum entered by Miranda Cheng R.N. 02/02/19 21:22: Patient transferred to CT scan via with Kat BROCK, awake and alert. Original Note: Ginger shift note: Patient admitted to room 221 from ER, BIB . Awake, alert, and cooperative. Generalized weakness noted, placed on high risk precautions. Patient with soiled clothing, and extremely dry flaky skin, thickened long nails to feet and hands. Denies dizziness, chest pain, or SOB. Present on admission (POA) stage 2 pressure injury to coccyx, approximately 3 cm diameter with small dime size healing scab. Non draining or erythematous. Patient states is aware of injury, and has had it for at least 3 months due to immobility at home from increased weakness. State uses furniture for mobility at home but has not been moving very much, also very little PO intake, no appetite. Endorses weight loss, unaware of amount. at bedside providing minimal information. Denies past medical history, and only takes advil for ankle injury. Oriented to room, environment, and plan of care.
[2019-02-02 21:29] LABS: Magnesium 1.8 mg/dL (1.6-2.3)
--- NOTE | 2019-02-02 21:30 | P.HP_ITS ---
History of Present Illness Date Patient Seen: 02/02/19 Time Patient Seen: 19:25 Chief complaint: Not eating/passed out Narrative: This is a 68-year-old female patient who reports no significant medical history who presents to the ER following a syncopal episode while sitting down with her family at a meal. The patient is a poor historian and family present to provide additional information. Per the ER MD family reported frequent falling with the possibility multiple prior syncopal episodes. Do note the patient has been eating poorly over the last several months. The patient denies antecedent symptoms to her syncope today. She denies fevers or chills, headaches or dizziness has had no chest pain palpitations. She reports chronic shortness of breath, has a wet sounding cough and is a current 1 pack per day smoker for 50+ years. Patient denies nausea vomiting, heartburn or reflux though she tells me her liver and ovary hurts. She reports not having an appetite and weight loss for a few months with alternating constipation and diarrhea. The patient has had no recent medical care and family informed the ER physician she is seen a medical provider in 8-10 years. She does have a family history of cancer. In the ER the patient has low temperature at 96.1?, heart rate 94, blood pressure of 96/62, respirations of 15 saturating at 100% on room air. She is noted to be very cachectic with a BMI of 13.6. Chest x-ray is obtained which finds no acute cardiopulmonary processes. On CBC she has microcytic hypochromic anemia with a mildly elevated white cell count at 11.9 and adequate platelets at 305. On chemistry sodium is 132 and potassium is 5.1, her BUN is 20 with creatinine of 1 3 with an EGFR of 40.6. Her blood sugar is 120 and albumin is 3.1 and has an elevated TSH at 6.14. She has lactate of 2.1, troponin is negative at less than 0.012 with an elevated CK at 167 a negative CK MB and low index 1.2. On urinalysis she has casts with sediment and urine is positive for blood protein and few bacteria and trace leukocyte esterase and negative for ketones and nitrates. Urine is sent for culture. Patient History Medical History Alcohol abuse (Acute) Benign breast lumps (Acute) Current every day smoker (Acute) Ovarian cyst, left (Resolved) Surgical History History of breast lump/mass excision (Acute) History of ovarian cystectomy (Acute) Social History household members: spouse Smoking Status: Current every day smoker Family & Social History Social History: household members spouse Prior Living Arrangements House Safety & Behavioral: Feels Safe in Current Unwilling to Answer Environment Tobacco & Substance use: Smoking Status Current every day smoker alcohol intake frequency 0-2 drinks per day Substance Use Type marijuana Comment: Patient is currently living with her in a single family home. She cannot recall how long she has been and indicates this is her 2nd . Father is living and the patient reports no significant medical history. Her mother has from cancer. She has 5 siblings which she is unsure of health status but knows of no significant medical problems. Smoking: Patient is current smoker, endorses smoking 1 pack per day for greater than 50 years. Alcohol: Patient states she makes her own wine and consumes wine daily Substance use: Patient acknowledges using cannabis for pain and leg twitches. Advanced directive: The patient wishes to be FULL CODE. She designates her and root to be her surrogate decision maker. Meds Home Medications Medication Instructions Recorded Confirmed Type naproxen sodium [Aleve] 440 mg PO BIDCC #0 10/05/12 02/02/19 History Allergies Allergy/AdvReac Type Severity Reaction Status Date / Time Lidocaine Allergy Unknown Uncoded 01/23/18 12:58 Procaine Allergy Unknown Uncoded 01/23/18 12:58 SULFA (sulfonamide) AdvReac Unknown Uncoded 01/23/18 12:58 Review of Systems Review of Systems All systems reviewed & are unremarkable except as noted in HPI and below and other (Patient not forthcoming, poor historian.) Exam Vital Signs (past 8 hours): - 02/02/19 13:30 02/02/19 14:00 02/02/19 14:51 Temperature Pulse Rate 82 79 68 Respiratory Rate 14 21 15 Blood Pressure Blood Pressure [Right Arm] 101/57 L 108/68 121/76 Pulse Oximetry 100 97 99 02/02/19 16:00 02/02/19 16:30 02/02/19 17:14 Temperature Pulse Rate 70 69 78 Respiratory Rate 15 15 16 Blood Pressure Blood Pressure [Right Arm] 105/71 98/60 113/74 Pulse Oximetry 96 02/02/19 17:50 Temperature 99.5 F Pulse Rate 85 Respiratory Rate 18 Blood Pressure 109/68 Blood Pressure [Right Arm] Pulse Oximetry 100 Oxygen Delivery Method Room Air Oxygen Flow Rate 0 Narrative Exam Narrative: GENERAL APPEARANCE: well developed, cachectic, severely protein malnourished, afebrile in no acute distress. HEAD: Normocephalic, atraumatic, no scalp lesions. EYES: pupils equal, round, reactive to light and accommodation, sclera non- icteric, extraocular movement intact . EARS: normal external structures, no ear pain NOSE: sinuses non tender to percussion, no rhinorrhea ORAL CAVITY: mucosa dry with stringy oral secretions, no lesions or exudate, poor dentation, palate normal, tongue in midline. THROAT: normal, no erythema, no exudate, pharynx normal, uvula midline. NECK/THYROID: neck supple, no jugular venous distention, no carotid bruit, no thyromegaly, sunken suprasternal and supraclavicular recesses, trachea midline. LYMPH NODES: no cervical or supraclavicular lymphadenopathy. SKIN: Pale to li in, warm, very dry, no suspicious lesions, no rashes, poor skin turgor HEART: regular rate and rhythm, S1-S2 without murmur, no rubs or gallops, 3 second capillary refill, no edema LUNGS: clear to auscultation bilaterally, no coarseness crackles or wheezing, moist cough present CHEST: Symmetrical movement, no accessory muscle use, no pain to AP and lateral compression. ABDOMEN: firm, rigid, flat, RUQ abdominal tenderness on palpation, no flank or suprapubic tenderness, active bowel tones BACK: Normal curvature, nontender to palpation, no CVA tenderness on percussion EXTREMITIES: moves all extremities, strength is 5/5 and symmetrical NEUROLOGIC: AAO x4, no focal neurologic deficits, cranial nerves II-XII grossly intact , motor strength normal upper and lower extremities, sensory exam intact to light touch, hearing grossly normal to speech. PSYCH: alert, cognitive function intact, evasive response to questions, fair eye contact, stable mood with congruent affect Objective Labs Result Diagrams: 02/02/19 13:04 02/02/19 13:04 Labs: Laboratory Results - last 24 hr 02/02/19 02/02/19 02/02/19 13:04 13:04 13:04 WBC 11.9 H RBC 4.18 Hgb 10.3 L Hct 33.3 L MCV 79.7 L MCH 24.7 L MCHC 31.0 RDW 16.9 H Plt Count 305 Neut % (Auto) 84.4 H Lymph % (Auto) 7.8 L [place] % (Auto) 7.2 Eos % (Auto) 0.2 L Baso % (Auto) 0.4 Neut # (Auto) 03881 H Lymph # (Auto) 900 L [place] # (Auto) 900 Eos # (Auto) 0 Baso # (Auto) 0 PT INR APTT Sodium 132 L Potassium 5.1 Chloride 99 Carbon Dioxide 20 L BUN 28 H Creatinine 1.30 H Estimated GFR 40.6 L BUN/Creatinine Ratio 21.5 Glucose 120 H Lactate Calcium 9.0 Total Bilirubin 0.3 AST 26 ALT 8 L Alkaline Phosphatase 96 Ammonia < 9.0 L Total Creatine Kinase 167 H CK-MB (CK-2) 2.03 CK-MB (CK-2) Rel Index 1.2 L Troponin I < 0.012 Total Protein 7.1 Albumin 3.1 L Globulin 4.0 Albumin/Globulin Ratio 0.8 L TSH Urine Color Urine Appearance Urine pH Ur Specific [place] Urine Protein Urine Glucose (UA) Urine Ketones Urine Occult Blood Urine Nitrate Urine Bilirubin Urine Ictotest Urine Urobilinogen Ur Leukocyte Esterase Urine RBC Urine WBC Ur Squamous Epith Cells Amorphous Sediment Urine Bacteria Hyaline Casts Urine Mucus Ur Culture Indicated? 02/02/19 02/02/19 02/02/19 13:04 14:16 14:16 WBC RBC Hgb Hct MCV MCH MCHC RDW Plt Count Neut % (Auto) Lymph % (Auto) [place] % (Auto) Eos % (Auto) Baso % (Auto) Neut # (Auto) Lymph # (Auto) [place] # (Auto) Eos # (Auto) Baso # (Auto) PT 12.8 H INR 1.1 APTT 27 Sodium Potassium Chloride Carbon Dioxide BUN Creatinine Estimated GFR BUN/Creatinine Ratio Glucose Lactate 2.1 Calcium Total Bilirubin AST ALT Alkaline Phosphatase Ammonia Total Creatine Kinase CK-MB (CK-2) CK-MB (CK-2) Rel Index Troponin I Total Protein Albumin Globulin Albumin/Globulin Ratio TSH 6.14 H Urine Color Urine Appearance Urine pH Ur Specific [place] Urine Protein Urine Glucose (UA) Urine Ketones Urine Occult Blood Urine Nitrate Urine Bilirubin Urine Ictotest Urine Urobilinogen Ur Leukocyte Esterase Urine RBC Urine WBC Ur Squamous Epith Cells Amorphous Sediment Urine Bacteria Hyaline Casts Urine Mucus Ur Culture Indicated? 02/02/19 15:46 WBC RBC Hgb Hct MCV MCH MCHC RDW Plt Count Neut % (Auto) Lymph % (Auto) [place] % (Auto) Eos % (Auto) Baso % (Auto) Neut # (Auto) Lymph # (Auto) [place] # (Auto) Eos # (Auto) Baso # (Auto) PT INR APTT Sodium Potassium Chloride Carbon Dioxide BUN Creatinine Estimated GFR BUN/Creatinine Ratio Glucose Lactate Calcium Total Bilirubin AST ALT Alkaline Phosphatase Ammonia Total Creatine Kinase CK-MB (CK-2) CK-MB (CK-2) Rel Index Troponin I Total Protein Albumin Globulin Albumin/Globulin Ratio TSH Urine Color Yellow Urine Appearance Cloudy Urine pH 5.0 Ur Specific [place] 1.025 Urine Protein 2+ H Urine Glucose (UA) Trace H Urine Ketones Negative Urine Occult Blood 3+ H Urine Nitrate Negative Urine Bilirubin 2+ H Urine Ictotest Negative Urine Urobilinogen 0.2 Ur Leukocyte Esterase Trace H Urine RBC 10-30/hpf H Urine WBC 30-100/hpf H Ur Squamous Epith Cells 1-5 /hpf Amorphous Sediment 3+ Urine Bacteria Few (2-10) H Hyaline Casts 1-5/lpf Urine Mucus 1+ H Ur Culture Indicated? Specimen cultured Assessment & Plan Assessment & Plan narrative: This is a 68-year-old female patient with a syncopal episode with history of frequent falls. The patient is very cachectic with BMI 13.6 reporting no appetite and abdominal pain. 1. Syncope, acute -patient had syncopal episode today while sitting at the table during meal witnessed by family of unknown duration. Patient denies prodromal symptoms -denies chest pain or palpitations has chronic shortness of breath related to smoking with current cough, no history of fevers or chills. -patient with frequent falls and vague reference by family to possible previous syncopal episodes. -patient with microcytic hypochromic anemia with a hemoglobin 10.3 and hematocrit of 33.3. Slightly elevated white blood cell count 11.9. -etiology syncope is unknown this time patient will be on telemetry 2. Abdominal pain, present on admission acute possibly chronic. -patient with marked right upper quadrant tenderness palpation with firm abdomen. Unable to discretely palpate organs due to guarding. -patient with no appetite meal tray sitting in front of her essentially untouched -will obtain a chest abdomen pelvic CT 3. Severe protein malnourishment present on admission, chronic -patient is sick Jose De Jesus taken presentation with a BMI of 13.6. -poor appetite and poor fluid intake. No complaints of nausea vomiting and has alternating diarrhea and constipation. -will obtain chest abdomen and pelvic CT to evaluate for cancerous lesion -regular diet, dietitian to consult. -family can bring in food matching patient's food likes 4. Chronic kidney disease stage 3bA2, present on admission, unknown if acute or chronic -patient appears dehydrated with dry mucous membranes, thick oral secretions, dry skin and poor turgor. -BUN of 28 and creatinine 1.3. EGFR is 40.6 has a BUN creatinine ratio of 21.5. -the patient received 2 L of IV fluid in the ER, will continue gentle hydration with normal saline 50 cc/hour. -will follow chemistries for response 5. Microcytic hypochromic anemia, present on admission -no prior laboratory analysis available for comparison -no evidence of blood loss, no hemoptysis, hematochezia or melena. -may be chronic in association with kidney disease -abdominal CT will provide more information, no treatment at this time. 6. Elevated TSH, present on admission -patient denies prior thyroid disease and is of unknown significance -will obtain a free T4 level 7. Frequent falls at home, chronic -patient elevated fall risk -will have PT and OT evaluate and treat 8. Current every day smoker, chronic -patient smoking 1 pack per day daily -patient reports chronic shortness of breath and has moist cough but no coarseness crackles or wheezing -chest x-ray reveals no acute cardiopulmonary processes -patient oxygenating adequately at 97% on room air. -patient counseled on smoking greater than 3 and less than 10 minutes. The patient is admitted to hospital due to severity of symptoms and risk complications requiring evaluation monitoring. The patient is admitted observation with expected length of stay to be less than 2 midnights. Scores GCS Greg coma scale eye opening: Spontaneous [place] coma scale verbal response: Orientated [place] coma scale motor response: Obey commands Greg coma scale total score: 15
[2019-02-02] MEDS: SODIUM CHLORIDE 0.9% 1,000 ML 50 ML IV (22:01)
[2019-02-03] VITALS (9 sets, daily range): BP systolic 77–115; BP diastolic 43–71; PULSE 16–81; RESP 14–18; TEMP 36.3–37.2; O2SAT 95–100; BMI 13.6
[2019-02-03 05:51] LABS: BUN Creatinine Ratio 19.2 (6-22); Blood Urea Nitrogen 23 mg/dL (7-17); Calcium 8.3 mg/dL (8.4-10.2); Carbon Dioxide 20 mmol/L (22-32); Chloride 103 mmol/L (98-107); Estimated Glomerular Filt Rate 44.5 mL/min (>60); Glucose 87 mg/dL (80-110); HEMOLYSIS < 15 (0-50); Potassium 2.9 mmol/L (3.4-5.1); Sodium 132 mmol/L (137-145)
--- NOTE | 2019-02-03 06:02 | PC.NURSE ---
DRE Suero notified with Potassium of level of 2.9.
[2019-02-03] MEDS: POTASSIUM CHLORIDE 40 MEQ in SODIUM CHLORIDE 0.9% 500 ML 130 ML IV (06:28)
--- NOTE | 2019-02-03 08:44 | CM.DANOTE ---
DCP: Case received, EMR reviewed and met with patient. Introduced self and role. DCP template completed with information currently available. Patient is a 68 year old female who admitted yesterday afternoon to the care of the hospitalist team. PCP: Was Dr. Menon, but has not seen a provider in a few years. Payer: Medicare/ Out of [place] [employer]. Patient came to hospital via family vehicle due to syncopal episode. Patient has history of falls at home, as well as syncope episodes. Patient has history of protein malnourishment, kidney disease, as well as anemia. Patient smokes on a daily basis, and does consume some wine daily. Lives in [place] with her , Adeel. Met with patient at bedside. Alert and awake. Asked her how she was feeling, said she felt like shit. Her daughter, Melissa, works here in housekeeping and was at bedside. Patient stated that she does use a walker at home. Her daughter stated that she had not been to the doctor in a while, and they did not even know that Dr. Menon is still in practice. Has not been there in a few years, and the clinic may have discharge her. She did state that she has been referred to specialists, at one time. Patient stated, she has lost weight, and just does not feel hungry. P: DCP will follow closely as plan unfolds. Patient is here under observation for now, for further testing. Rachell Esquivel RN/Special Service Officer
[2019-02-03] MEDS: SODIUM CHLORIDE 0.9% FLUSH 10 ML IV ×2 (08:53→20:23)
[2019-02-03] MEDS: ACETAMINOPHEN 325 MG TABLET 650 MG PO ×2 (08:54→22:51)
--- NOTE | 2019-02-03 13:50 | PC.NURSE ---
Day shift: Pt's BP 80/53. Let Dr Cota know this and she ordered a 250ml bolus then IV fluids at 150ml/hr after the bolus. Will continue to monitor. Pt has no symptoms. Pt has not voided approx 100mls this shift as well. aware.
[2019-02-03] MEDS: SODIUM CHLORIDE 0.9% 500 ML 1000 ML IV (14:03)
[2019-02-03] MEDS: LACTATED RINGERS 1,000 ML 150 ML IV ×2 (14:06→20:23)
--- NOTE | 2019-02-03 15:47 | PM.PN.1 ---
Subjective Date Patient Seen: 02/03/19 Interval history: The patient is a 68-year-old female who was admitted to the hospital for dehydration and significant weight loss. The patient is eating now. Her is at the bedside. He reports she has lost about significant amount of weight over the past year. He works at night and states that he has come home with having found her lying on the floor. He is concerned about her weakness. He wants to know what the etiology is of her profound weakness and significant weight loss. I reviewed with him the results of her CT scan. I discussed with them the need for a Oncology consult. In addition we discussed the need for biopsy to get tissue for diagnosis. The patient and her are both agreeable. She Is hypotensive although asymptomatic. Exam Vital Signs (past 8 hours): - 02/03/19 07:53 02/03/19 08:57 02/03/19 13:46 Temperature 97.8 F 97.3 F L Pulse Rate 16 L 62 Respiratory Rate 16 16 Blood Pressure 97/59 L 80/53 L Pulse Oximetry 95 99 100 Oxygen Delivery Method Room Air Oxygen Flow Rate 0 Narrative Exam Narrative: Tahir Michelle emaciated ill-appearing female Lungs: Decreased breath sounds but clear Cardiac exam: Regular rate and rhythm normal S1-S2 Abdomen: Soft nontender nondistended palpable mass noted Extremities: No edema Objective Labs Result Diagrams: 02/02/19 13:04 02/03/19 05:18 Labs: Laboratory Results - last 24 hr 02/02/19 02/02/19 02/03/19 15:46 20:56 05:18 Sodium Potassium Chloride Carbon Dioxide BUN Creatinine Estimated GFR BUN/Creatinine Ratio Glucose Calcium Magnesium 1.8 Free T4 1.60 Urine Color Yellow Urine Appearance Cloudy Urine pH 5.0 Ur Specific [place] 1.025 Urine Protein 2+ H Urine Glucose (UA) Trace H Urine Ketones Negative Urine Occult Blood 3+ H Urine Nitrate Negative Urine Bilirubin 2+ H Urine Ictotest Negative Urine Urobilinogen 0.2 Ur Leukocyte Esterase Trace H Urine RBC 10-30/hpf H Urine WBC 30-100/hpf H Ur Squamous Epith Cells 1-5 /hpf Amorphous Sediment 3+ Urine Bacteria Few (2-10) H Hyaline Casts 1-5/lpf Urine Mucus 1+ H Ur Culture Indicated? Specimen cultured 02/03/19 05:18 Sodium 132 L Potassium 2.9 L D Chloride 103 Carbon Dioxide 20 L BUN 23 H Creatinine 1.20 H Estimated GFR 44.5 L BUN/Creatinine Ratio 19.2 Glucose 87 Calcium 8.3 L Magnesium Free T4 Urine Color Urine Appearance Urine pH Ur Specific [place] Urine Protein Urine Glucose (UA) Urine Ketones Urine Occult Blood Urine Nitrate Urine Bilirubin Urine Ictotest Urine Urobilinogen Ur Leukocyte Esterase Urine RBC Urine WBC Ur Squamous Epith Cells Amorphous Sediment Urine Bacteria Hyaline Casts Urine Mucus Ur Culture Indicated? Assessment & Plan (1) Metastatic renal cell carcinoma: Problem details: Patient with significant weight loss profound cachexia and underlying metastatic renal cell carcinoma, present on admission. CT scan reveals a massive left renal cell carcinoma, a large mediastinal metastatic lesion, right pulmonary metastatic lesion, 2 very large left adrenal metastatic lesions, and a massive left para-aortic metastatic adenopathy. Discussed with radiology and will for CT-guided biopsy of the neck lesion tomorrow. In addition the patient will be seen by Oncology for further evaluation. Discussed with Dr. Stephany mina who will evaluate the patient tomorrow. Current visit: Yes Status: Acute (2) Other severe protein-calorie malnutrition: Problem details: Severe protein calorie malnutrition, present on admission. Will ask for a nutrition consultation. Patient appears to have cachexia secondary to metastatic disease. would consider roly a spot will defer until oncology evaluation. Current visit: Yes Status: Acute (3) Hypotension: Problem details: Hypotension, present on admission, secondary to dehydration. Will continue IV fluid Current visit: Yes Status: Acute (4) Dehydration: Problem details: Dehydration, present on admission related to poor p.o. intake. Continue IV hydration Current visit: Yes Status: Acute (5) Syncope: Problem details: Syncope, present on admission, likely related to dehydration. No further syncope at this time. Will continue with PT and OT evaluation. Qualifiers: Encounter type: Syncope type: Current visit: Yes Status: Acute (6) Hypokalemia: Problem details: Hypokalemia, will replace Current visit: Yes Status: Acute
--- NOTE | 2019-02-03 16:09 | OT.IP.TRT ---
Occupational Therapy Treatment Note M3 OT- IP Subjective and Pain Start: 02/03/19 16:07 Freq: Status: Active Protocol: Document 02/03/19 16:08 [facility] (Rec: 02/03/19 16:09 [facility] [id number]) OT- Subjective Occupational Therapy Visit Type Type Patient Refusal Notes Pt asleep when attempting to see pt for OT eval, therefore to check on the pt tomorrow.
--- NOTE | 2019-02-03 16:22 | PT.IIE ---
Surgical History (Last Reviewed 02/02/19 @ 21:34 by DRE Lorenz) History of breast lump/mass excision (Acute) History of ovarian cystectomy (Acute) Medical History (Last Reviewed 02/02/19 @ 21:34 by DRE Lorenz) Alcohol abuse (Acute) Benign breast lumps (Acute) Current every day smoker (Acute) Ovarian cyst, left (Resolved) Physical Therapy Inpatient Evaluation/Re-Eval M1 PT/OT-IP Prior Functional Status Start: 02/03/19 15:57 Freq: NEEDED Status: Active Protocol: Document 02/03/19 14:00 (Rec: 02/03/19 16:22 [email or web address]) Medical Review Prior Functional Status Medical History Reviewed Yes Diet/Fluid Consistency Regular Communication No deficits noted. Able to make needs known Mobility and Gait Pt was an independent ambulator at home and community without AD. Pt's and nephew stated pt was pretty mobile and independent until a month ago. Pt started to have progressive weakness and had to use FWW for mobility for the past few days. She also has been falling multiple times at home recently. Activities of Daily Living and IADL's Pt was independent with ADLs and IADLs. But recently needed increased assistance from who stated She started to get unsteady and weak Prior Functional Level (Other details) Pt is a current 1 pack per day smoker for 50+ years Social History Household Members spouse Living Arrangements House Number of Floors (Floors) Two Floors Number of Stairs To Enter/Railing? 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 Bathroom is on mainfloor and bedroom on second floor. He is currently working 12hrs/day for 7 days for another 2/3 weeks. Pt's nephew, grandson and dtr live close by who will be able to help if needed. Adeel stated pt has been getting weaker and fell on the floor multiple times recently after he got off from work. Pt's stated that approximately 10 years ago pt had an episode that appeared to be seizure like. She was flailing around and did not seem to be aware of her surroundings. Despite his efforts, he was unable to get a diagnosis. Due to his concerns about his , he quite his job and stayed home to care for her. She had gradually improved, but over the past 4-5 months has had a significant decrease in appetite to the point where she barely eats. M2 PT-IP Current Condition Start: 02/03/19 15:57 Freq: NEEDED Status: Active Protocol: Document 02/03/19 14:00 HH (Rec: 02/03/19 16:22 [email or web address]) Physical Therapy Current Condition Current Condition Evaluation Date 02/03/19 Treatment Diagnosis Syncope, frequent falls, impaired gait and activity tolerance Onset Date 02/03/19 Weight Bearing Status Weight Bearing Status Weight Bear as Tolerated M3 PT-IP Subjective Start: 02/03/19 15:57 Freq: NEEDED Status: Active Protocol: Document 02/03/19 14:00 HH (Rec: 02/03/19 16:22 [email or web address]) Subjective Physical Therapy Visit Type Type Initial Evaluation Visit Start Time 14:00 Visit Stop Time 14:40 Total Visit Minutes 40 Notes Pt will consult oncologist tomorrow am. Pt's , nephew and grandson at bedside . 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 Patient Goals To return home. Therapy Pain Assessment Pain Present Pain Present Denied Pain M4 PT-IP Mobility and Gait Start: 02/03/19 15:57 Freq: NEEDED Status: Active Protocol: Document 02/03/19 14:00 HH (Rec: 02/03/19 16:22 [email or web address]) PT-Bed Mobility Assessment Rolling Type of Rolling Roll to Right Level of Assist Contact Guard Assistance Supine to Sit Supine to Sit Minimal Assistance Scooting Scooting to Edge of Bed Contact Guard Assistance PT-Transfer Assessment Sit to and From Stand Sit to and from Stand Minimal Assistance Use of Upper Extremities Equipment Transfer Assistive Device Gait Belt Front Wheeled Walker Orthotic/Prosthetic Devices or Brace: No Transfers Transfer Destination Bed Chair Toilet Transfer Technique Stand Step Pivot Transfer Ability Level of Assist Minimal Assistance Use of Upper Extremities Comments Mobility Comments Pt required min A for both supine to sit and sit to stand from toilet/ chair. Pt got OOB and went to bathroom for toileting. She was only able to pull her brief down to midshin but needed assistance to doff and jose l. She also attempted to unsupported standing but she tends to show excessive sway who also stated I am little unsteady. Gait Assessment Gait Gait Assistance Required: Contact Guard Assist Distance (Feet) 15 Able to Maintain Weight Bearing Status Yes During Gait Assistive Devices Assistive Device Gait Belt Front Wheeled Walker Orthotic/Prosthetic Devices or Brace: No Gait Deviations General Gait Pattern Ataxic Decreased Stride Length Decreased Feet Clearance Flexed Trunk Narrow Based Gait Step-to Gait Factors Limiting Gait Function Factors Limiting Gait Function Abnormal Tonal Influences Decreased Activity Tolerance Decreased Strength Poor Balance Poor Safety Awareness Respiratory Distress Comments Gait Comments Pt amb from EOB to bathroom and returned to chair after. Pt required CGA since she is slightly unsteady and short step length during amb with FWW. Stair Climbing Assessment Comments Stair Climbing Comments did not attempt PT-Balance Assessment Sitting Balance and Reactions Static Sitting Balance Ability Normal Dynamic Sitting Balance Ability Normal Standing Balance and Reactions Static Standing Balance Ability Good Dynamic Standing Balance Ability Fair Device Used FWW M5 PT-IP Objective Assessments Start: 02/03/19 15:57 Freq: NEEDED Status: Active Protocol: Document 02/03/19 14:00 (Rec: 02/03/19 16:22 [email or web address]) Orientation Orientation/Cognition Level of Alertness Alert Orientation Name Age Birthday Month Date Year Day of Week Place Situation Language Function Ability No Deficits Noted Safety Awareness Understands Safety Issues Memory Description No Deficits Noted Gross Range of Motion Upper Extremity ROM Assessment Within Functional Limits Lower Extremity ROM Assessment Within Functional Limits Strength Upper Extremity Strength Assessment Bilaterally Impaired Lower Extremity Strength Assessment Bilaterally Impaired Comments Strength Comments B UE and LEs are 3+/5 grossly Coordination Assessment Gross Coordination Gross Coordination WNL Assessment Finger to Nose Test Normal Performance Pronation/Supination Test Normal Performance Sensation Assessment Sensation Gross Sensation WNL Light Touch Intact Proprioception (Position) Intact Muscle Tone Muscle Tone WNL Yes M6 PT-IP Treatment Start: 02/03/19 15:57 Freq: NEEDED Status: Active Protocol: Document 02/03/19 14:00 (Rec: 02/03/19 16:22 [email or web address]) Physical Therapy Treatment Education Education Provided Precautions Weight Bearing Status Post-Op Packet Safety M7 PT-IP Assessment and Plan Start: 02/03/19 15:57 Freq: NEEDED Status: Active Protocol: Document 02/03/19 14:00 (Rec: 02/03/19 16:22 [email or web address]) PT Summary Assessment and Plan Potential Rehabilitation Potential Good Status of Condition at Evaluation Stable Summary Impairments Strength Balance Bed Mobility Transfers Gait Activity Tolerance Assessment Summary Pt is a 68yo female who looks relatively older than her actual age. Pt is basically bones and skin, and she does not like to eat per SW record. Pt is mod complexity due to her long medical history. Pt is AxO x4 upon assessment, Pt will see oncologist for consult tomorrow. Pt required min A for transfers due to weakness but CGA and FWW for amb. Pt was slightly unsteady without support and has difficult time performing sit to stand. 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 Goals Bed Mobility Goal Standby Assistance Transfer Goal Standby Assistance Front Wheeled Walker Gait Goal Standby Assistance Front Wheel Walker Gait Distance 100 Other Goals climb 3 steps without railing 20 steps with railing Days to Meet Goals 10 Frequency of Treatment Frequency Of Treatment Once a Day Treatment Plan Physical Therapy Treatment Plan Bed Mobility Training Transfer Training Gait Training Therapeutic Exercise Balance Retraining Post Op Education Discharge Planning Hot or Cold Pack Neuromuscular Re-ed Other Recommendations and Next Treatment bed mob, transfer and gait Focus training as anisha with LRAD climb stairs if possible Recommendations To Nursing Amount of Assist Needed 1 Person Assist Discharge Recommendations PT Discharge Recommendations SNF Rehab
[2019-02-03 18:28] LABS: HEMOLYSIS < 15 (0-50); Potassium 3.8 mmol/L (3.4-5.1)
[2019-02-04] VITALS (18 sets, daily range): BP systolic 91–138; BP diastolic 47–76; PULSE 71–88; RESP 14–20; TEMP 36.2–36.7; O2SAT 95–100
--- NOTE | 2019-02-04 | PATH_ITS ---
[facility] Accession Number: [id number] . 01 Material submitted: . neck - NECK MASS . 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 . . . COMMENT: Case reviewed by Dr. Holland Thomas, who concurs with the diagnosis. The immunohistochemistry results are discussed with Dr. Margie Dutta, who concurs with the interpretation. . The results of this evaluation are discussed by telephone with Dr. Blayne Henderson at 12:30 p.m. on 02/07/2019. MRV/02/07/2019 . 02 Electronically signed: . Bobby Betancur MD, Pathologist NPI- [id number] . 01 Gross description: . NECK MASS: Received in formalin are multiple fragment(s) of hernandez, soft tissue measuring 1.0 x 0.1 x 0.1 cm to 0.7 x 0.1 x 0.1 cm submitted entirely in 1 cassette(s) /CKI /CKI . 02 Microscopic: . Sections are of needle core biopsy material from a mass in the neck. This is soft tissue which is diffusely involved by a poorly differentiated carcinoma. The neoplastic cells are intermediate size with round to slightly irregular hyperchromatic nuclei. They are arranged in irregular large and small nests that are infiltrating through soft tissue. The tumor cells have a sparse amount of pale staining cytoplasm. In some areas they are poorly cohesive whereas in most areas they form distinct neoplastic sheets. Definite organoid differentiation is not noted. . In attempt to identify the site of cell origin, a panel of immunohistochemistry antibodies are applied and the results are as follows: . Cytokeratin 7: Tumor cells strongly positive. Cytokeratin 20: Approximately 30% of the tumor cells are positive. Cytokeratin 5/6: Approximately 10% of the tumor cells are positive. p40: 90% of the tumor cells are positive. MINA-3: 100% of the tumor cells are strongly positive. Uroplakin: A very rare tumor cells shows weak membranous staining; however, most of the tumor cells are negative. MOC-31: 90% of the tumor cells stain positive. TTF-1: Tumor cells negative. Synaptophysin: Tumor cells negative. PAX-8: Tumor cells negative. . Interpretation: This immunophenotype is quite consistent with a primary poorly differentiated urothelial carcinoma. It is understood that abdominal imaging demonstrates a large renal mass; therefore, this immunophenotype would be highly suggestive of a primary urothelial carcinoma of kidney. . 02 Pathologist provided ICD-10: C79.89 . 02 CPT . 982749, [id number], [id number] Performed at: 01 [facility] [address] [place] [id number] MD Burke Herrera MD Phone: [phone] Performed at: 02 [facility] [address] [place], [place] [id number] MD Martha Fleming MD Phone: [phone]
[2019-02-04] MEDS: LACTATED RINGERS 1,000 ML 150 ML IV ×2 (03:31→09:53)
[2019-02-04 05:57] LABS: INR 1.2 (0.9-1.3); Prothrombin Time 14.2 SECONDS (10.1-12.7)
[2019-02-04 05:59] LABS: Add Manual Diff / Slide Review NO; Basophils Absolute Auto 0 /uL (0-100); Basophils Percent Auto 0.3 % (0-2); Eosinophils Absolute Auto 200 /uL (0-450); Eosinophils Percent Auto 1.9 % (2-4); Lymphocytes Absolute Auto 1100 /uL (1100-4500); Lymphocytes Percent Auto 11.6 % (25-40); Mean Corpuscular HGB Conc 32.4 % (30-36); Mean Corpuscular Hemoglobin 25.6 PG (26-34); Monocytes Absolute Auto 800 /uL (0-900); Monocytes Percent Auto 7.9 % (3-14); Neutrophils Absolute Auto 7500 /uL (1500-7000); Neutrophils Percent Auto 78.3 % (50-75); Platelet Count 280 X10^3/uL (150-400); Red Blood Cell Count 3.14 X10^6/uL (4.0-5.2); Red Cell Distribution Width 17.4 % (11.6-14.8); White Blood Cell Count 9.6 X10^3/uL (4.5-11.0)
[2019-02-04 06:00] LABS: PTT Partial Thromboplastin Tim 35 SECONDS (26.4-36.2)
[2019-02-04 06:01] LABS: Alanine Aminotransferase 8 IU/L (9-52); Albumin 2.1 g/dL (3.5-5.0); Albumin Globulin Ratio 0.7 (1.0-2.8); Alkaline Phosphatase 90 U/L (38-126); Aspartate Aminotransferase 20 IU/L (14-36); BUN Creatinine Ratio 21.1 (6-22); Blood Urea Nitrogen 19 mg/dL (7-17); Calcium 7.7 mg/dL (8.4-10.2); Carbon Dioxide 21 mmol/L (22-32); Chloride 101 mmol/L (98-107); Estimated Glomerular Filt Rate > 60.0 mL/min (>60); Globulin 3.1 g/dL (1.7-4.1); Glucose 108 mg/dL (80-110); HEMOLYSIS < 15 (0-50); Potassium 3.6 mmol/L (3.4-5.1); Sodium 129 mmol/L (137-145); Total Protein 5.2 g/dL (6.3-8.2)
[2019-02-04 06:21] LABS: Bilirubin Total < 0.1 mg/dL (0.2-1.3); Hematocrit 24.8 % (36-46)
[2019-02-04] MEDS: SODIUM CHLORIDE 0.9% FLUSH 10 ML IV ×2 (08:53→21:15)
[2019-02-04] MEDS: ACETAMINOPHEN 325 MG TABLET 650 MG PO (08:55)
--- NOTE | 2019-02-04 10:30 | PT.IPTN ---
Current Diagnoses Malignant neoplasm of unspecified kidney, except renal pelvis (02/03/19) Unspecified severe protein-calorie malnutrition (02/03/19) Dehydration (02/03/19) Hypokalemia (02/03/19) Hypotension, unspecified (02/03/19) Syncope and collapse (02/03/19) Physical Therapy Treatment Note M2 PT-IP Current Condition Start: 02/03/19 15:57 Freq: NEEDED Status: Active Protocol: Document 02/03/19 14:00 HH (Rec: 02/03/19 16:22 HH [email or web address]) Physical Therapy Current Condition Current Condition Evaluation Date 02/03/19 Treatment Diagnosis Syncope, frequent falls, impaired gait and activity tolerance Onset Date 02/03/19 Weight Bearing Status Weight Bearing Status Weight Bear as Tolerated M3 PT-IP Subjective Start: 02/03/19 15:57 Freq: NEEDED Status: Active Protocol: Document 02/04/19 10:30 GGD (Rec: 02/04/19 12:18 GGD [id number]) Subjective Physical Therapy Visit Type Type Treatment Note Visit Start Time 10:30 Visit Stop Time 10:50 Total Visit Minutes 20 Physical Therapy Visit Comments Patient Comments Pt states she needs to use the bathroom. M4 PT-IP Mobility and Gait Start: 02/03/19 15:57 Freq: NEEDED Status: Active Protocol: Document 02/04/19 10:30 GGD (Rec: 02/04/19 12:18 GGD [id number]) PT-Bed Mobility Assessment Supine to Sit Supine to Sit Minimal Assistance Sit to Supine Sit to Supine Contact Guard Assistance Scooting Scooting to Edge of Bed Contact Guard Assistance PT-Transfer Assessment Sit to and From Stand Sit to and from Stand Minimal Assistance Moderate Assistance 1 Person Assistance Use of Upper Extremities Equipment Transfer Assistive Device Gait Belt Front Wheeled Walker Orthotic/Prosthetic Devices or Brace: No Transfers Transfer Destination Bed Toilet Transfer Ability Level of Assist Minimal Assistance 1 Person Assistance Comments Mobility Comments Pt need min A for sit to stand from bed, and mod A for sit to stand toilet. Gait Assessment Gait Gait Assistance Required: Contact Guard Assist Distance (Feet) 20 Able to Maintain Weight Bearing Status Yes During Gait Assistive Devices Assistive Device Gait Belt Front Wheeled Walker Orthotic/Prosthetic Devices or Brace: No Gait Deviations General Gait Pattern Ataxic Decreased Stride Length Decreased Feet Clearance Flexed Trunk Narrow Based Gait Step-to Gait Factors Limiting Gait Function Factors Limiting Gait Function Abnormal Tonal Influences Decreased Activity Tolerance Decreased Strength Poor Balance Poor Safety Awareness Respiratory Distress M5 PT-IP Objective Assessments Start: 02/03/19 15:57 Freq: NEEDED Status: Active Protocol: Document 02/03/19 14:00 (Rec: 02/03/19 16:22 [email or web address]) Orientation Orientation/Cognition Level of Alertness Alert Orientation Name Age Birthday Month Date Year Day of Week Place Situation Language Function Ability No Deficits Noted Safety Awareness Understands Safety Issues Memory Description No Deficits Noted Gross Range of Motion Upper Extremity ROM Assessment Within Functional Limits Lower Extremity ROM Assessment Within Functional Limits Strength Upper Extremity Strength Assessment Bilaterally Impaired Lower Extremity Strength Assessment Bilaterally Impaired Comments Strength Comments B UE and LEs are 3+/5 grossly Coordination Assessment Gross Coordination Gross Coordination WNL Assessment Finger to Nose Test Normal Performance Pronation/Supination Test Normal Performance Sensation Assessment Sensation Gross Sensation WNL Light Touch Intact Proprioception (Position) Intact Muscle Tone Muscle Tone WNL Yes M6 PT-IP Treatment Start: 02/03/19 15:57 Freq: NEEDED Status: Active Protocol: Document 02/03/19 14:00 (Rec: 02/03/19 16:22 [email or web address]) Physical Therapy Treatment Education Education Provided Precautions Weight Bearing Status Post-Op Packet Safety M7 PT-IP Assessment and Plan Start: 02/03/19 15:57 Freq: NEEDED Status: Active Protocol: Document 02/04/19 10:30 GGD (Rec: 02/04/19 12:18 GGD [id number]) PT Summary Assessment and Plan Summary Assessment Summary Pt need assist with bed mobility and sit to stand. She did fatigue with short distance gait. She was safe and no LOB during gait and transfers. She would benefit from SNF rehab to improve functional mobility. Frequency of Treatment Frequency Of Treatment Once a Day Treatment Plan Physical Therapy Treatment Plan Bed Mobility Training Transfer Training Gait Training Therapeutic Exercise Balance Retraining Post Op Education Discharge Planning Hot or Cold Pack Neuromuscular Re-ed Other Recommendations and Next Treatment bed mob, transfer and gait Focus training as anisha with LRAD climb stairs if possible Recommendations To Nursing Amount of Assist Needed 1 Person Assist Discharge Recommendations PT Discharge Recommendations SNF Rehab
--- NOTE | 2019-02-04 11:35 | PC.NURSE ---
Day shift: Dr Cota asked if she wants the IV fluid going at 150ml/hr at this time and she does want it to stay at that rate. Pt does have an intermittent cough but lung sound dim but clear. Will continue to monitor.
--- NOTE | 2019-02-04 12:38 | ONC.CONS ---
History of Present Illness - Data of Consult Consult date: 02/04/19 Primary Care Provider: Jose L Menon MD - Consult Narrative Narrative: Cali White is a 68 year old female who I was asked to see for likely metastatic kidney cancer. Patient is a 68-year-old woman who was out to dinner and developed an episode of syncope. Because of this, she was brought to the emergency room. She was noticed to be quite cachectic. She had a CT scan done disclosed large left-sided kidney mass with adenopathy. the kidney measured 9.6 x 12.2 x 9.7 cm. There were adrenal metastasis as well as bulky periaortic nodes up to 6.1 cm. There was a mediastinal mass that was 4.3 cm. There were probable liver metastases as well as a 1 cm right middle lobe mass. There was a node in the left base the neck or supraclavicular area as well. The patient notes that she was having some ?ovary and liver pain? she is unable to quantify for how long that had been present. She notes that her appetite has been poor and she has lost some weight although she is not able to quantify that either. She has not noticed any adenopathy. No fevers chills or sweats. She denies any nausea or vomiting. She notes that she her performance status is somewhat limited. She is not able to walk around the block anymore but is able to move around her house freely. She does get dyspneic when climbing stairs and finds that she needs to use her arms to help pull herself up. Her past medical history is unremarkable. She was on no medications prior to her admission. Social history: She is . She does smoke about a pack of cigarettes daily. 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 CC: Vani Cota MD - Pain Details Pain Intensity: 2 Pain Scale Used: Numeric (1 - 10) Home Medications and Allergies Home Medications Medication Instructions Recorded Confirmed Type naproxen sodium [Aleve] 440 mg PO BIDCC #0 10/05/12 02/02/19 History Allergies Allergy/AdvReac Type Severity Reaction Status Date / Time lidocaine Allergy Unknown Unverified 02/03/19 12:57 procaine Allergy Unknown Unverified 02/03/19 12:57 Sulfa (Sulfonamide AdvReac Unknown Unverified 02/03/19 12:57 Antibiotics) Medical History - Medical, Surgical, Family History Medical History: Medical History (Updated 02/04/19 @ 12:39 by Blayne Henderson MD) Alcohol abuse Benign breast lumps Current every day smoker Ovarian cyst, left Surgical History: Surgical History (Updated 02/02/19 @ 21:34 by DRE Lorenz) History of breast lump/mass excision History of ovarian cystectomy Family History: Family History (Updated 02/02/19 @ 21:35 by DRE Lorenz) Father No significant medical problems Mother Cancer - Social History Smoking Status: Current every day smoker Review of Systems Constitutional: weight loss, decreased activity level Cardiovascular: dyspnea on exertion, no chest pain Respiratory: no cough Gastrointestinal: change in appetite, abdominal pain Musculoskeletal: weakness Integumentary: no bleeding or bruising Exam Vital signs: Vital Signs Temp Pulse Resp BP Pulse Ox 02/04/19 08:03 95 02/04/19 07:35 97.2 F L 76 15 101/55 L 98 02/04/19 03:54 97.5 F L 86 20 91/47 L 96 02/04/19 00:05 99 02/03/19 23:27 97.5 F L 78 18 91/57 L 99 02/03/19 20:50 99.0 F 81 18 115/71 100 02/03/19 16:08 99 02/03/19 15:40 97.8 F 72 16 87/52 L 100 02/03/19 13:46 97.3 F L 62 16 80/53 L 100 Intake and Output 02/03/19 02/04/19 02/04/19 23:59 07:59 15:59 Intake Total 942.5 / 7.5 1250 / 2255 1005 / 2255 Balance 942.5 / 2037.5 1250 / 2255 1005 / 2255 Intake: IV 942.5 / 1462.5 999 / 5 955 / 5 Lactated Ringers 1,000 ml @ 150 942.5 / 942.5 1000 / 1955 955 / 1955 mls/hr IV CONT SEGUNDO Rx#: [id number] Oral 250 / 300 50 / 300 Other: Percent Meal Consumed 50% Stool Size Small Small # Unmeasured Voids 1 1 1 # Bowel Movements 1 1 Weight 34.6 kg Patient Weight 02/04/19 23:59 Weight 34.6 kg - Constitutional positive no acute distress, positive cachectic, positive chronically ill appearing - Routine HEENT Exam Head: Present: normocephalic, atraumatic Eye: Present: EOMI, PERRL. Absent: conjunctival icterus, scleral injection ENT: Present: mucous membranes moist, oropharynx clear - Routine Neck Exam Present: supple. Absent: lymphadenopathy Comments: She does have some fullness in the left supraclavicular fossa. - Routine Chest/Breast/Axilla Exam Axillae: Absent: lymphadenopathy - Routine Respiratory Exam Present: Clear to auscultation bilaterally. Absent: rales, wheezes - Routine Cardiovascular Exam Present: RRR, S1, S2. Absent: murmur - Routine Abdominal Exam Present: soft, normoactive bowel sounds, mass. Absent: tenderness Comments: She has a large mass filling the left side of her abdominal cavity. - Routine Extremities Exam Present: clubbing. Absent: edema - Routine Skin Exam Present: intact. Absent: petechiae, rash - Routine Neurological Exam Present: alert, oriented X3 - Routine Psychiatric Exam Present: normal affect, normal thought process Results - Labs Laboratory Last Values WBC 9.6 X10^3/uL (4.5-11.0) 02/04/19 05:29 RBC 3.14 X10^6/uL (4.0-5.2) L 02/04/19 05:29 Hgb 8.0 g/dL (12.0-16.0) L 02/04/19 05:29 Hct 24.8 % (36-46) L 02/04/19 05:29 MCV 79.0 fL (80-100) L 02/04/19 05:29 MCH 25.6 PG (26-34) L 02/04/19 05:29 MCHC 32.4 % (30-36) 02/04/19 05:29 RDW 17.4 % (11.6-14.8) H 02/04/19 05:29 Plt Count 280 X10^3/uL (150-400) 02/04/19 05:29 Neut % (Auto) 78.3 % (50-75) H 02/04/19 05:29 Lymph % (Auto) 11.6 % (25-40) L 02/04/19 05:29 [place] % (Auto) 7.9 % (3-14) 02/04/19 05:29 Eos % (Auto) 1.9 % (2-4) L 02/04/19 05:29 Baso % (Auto) 0.3 % (0-2) 02/04/19 05:29 Neut # (Auto) 7500 /uL (8075-9784) H 02/04/19 05:29 Lymph # (Auto) 1100 /uL (9323-4095) 02/04/19 05:29 [place] # (Auto) 800 /uL (0-900) 02/04/19 05:29 Eos # (Auto) 200 /uL (0-450) 02/04/19 05:29 Baso # (Auto) 0 /uL (0-100) 02/04/19 05:29 PT 14.2 SECONDS (10.1-12.7) H 02/04/19 05:29 INR 1.2 (0.9-1.3) 02/04/19 05:29 APTT 35 SECONDS (26.4-36.2) D 02/04/19 05:29 Sodium 129 mmol/L (137-145) L 02/04/19 05:29 Potassium 3.6 mmol/L (3.4-5.1) 02/04/19 05:29 Chloride 101 mmol/L (98-107) 02/04/19 05:29 Carbon Dioxide 21 mmol/L (22-32) L 02/04/19 05:29 BUN 19 mg/dL (7-17) H 02/04/19 05:29 Creatinine 0.90 mg/dL (0.52-1.04) 02/04/19 05:29 Estimated GFR > 60.0 mL/min (>60) 02/04/19 05:29 BUN/Creatinine Ratio 21.1 (6-22) 02/04/19 05:29 Glucose 108 mg/dL (80-110) 02/04/19 05:29 Lactate 2.1 mmol/L (0.7-2.1) 02/02/19 14:16 Calcium 7.7 mg/dL (8.4-10.2) L 02/04/19 05:29 Magnesium 1.8 mg/dL (1.6-2.3) 02/02/19 20:56 Total Bilirubin < 0.1 mg/dL (0.2-1.3) L 02/04/19 05:29 AST 20 IU/L (14-36) 02/04/19 05:29 ALT 8 IU/L (9-52) L 02/04/19 05:29 Alkaline Phosphatase 90 U/L (38-126) 02/04/19 05:29 Ammonia < 9.0 umol/L (9-30) L 02/02/19 13:04 Total Creatine Kinase 167 U/L (30-135) H 02/02/19 13:04 CK-MB (CK-2) 2.03 ng/mL (<2.37) 02/02/19 13:04 CK-MB (CK-2) Rel Index 1.2 % (1.5-5.0) L 02/02/19 13:04 Troponin I < 0.012 ng/mL (0.01-0.034) 02/02/19 13:04 Total Protein 5.2 g/dL (6.3-8.2) L 02/04/19 05:29 Albumin 2.1 g/dL (3.5-5.0) L 02/04/19 05:29 Globulin 3.1 g/dL (1.7-4.1) 02/04/19 05:29 Albumin/Globulin Ratio 0.7 (1.0-2.8) L 02/04/19 05:29 TSH 6.14 uIU/mL (0.47-4.68) H 02/02/19 13:04 Free T4 1.60 ng/dL (0.78-2.19) 02/03/19 05:18 Urine Color Yellow 02/02/19 15:46 Urine Appearance Cloudy 02/02/19 15:46 Urine pH 5.0 (4.5-8.0) 02/02/19 15:46 Ur Specific [place] 1.025 (1.000-1.035) 02/02/19 15:46 Urine Protein 2+ (Negative) H 02/02/19 15:46 Urine Glucose (UA) Trace g/dL (Negative) H 02/02/19 15:46 Urine Ketones Negative (NEGATIVE) 02/02/19 15:46 Urine Occult Blood 3+ (Negative) H 02/02/19 15:46 Urine Nitrate Negative (Negative) 02/02/19 15:46 Urine Bilirubin 2+ (NEGATIVE) H 02/02/19 15:46 Urine Ictotest Negative (Negative) 02/02/19 15:46 Urine Urobilinogen 0.2 E.U./dL (0.2) 02/02/19 15:46 Ur Leukocyte Esterase Trace (NEGATIVE) H 02/02/19 15:46 Urine RBC 10-30/hpf (0-5/HPF) H 02/02/19 15:46 Urine WBC 30-100/hpf (0-5/HPF) H 02/02/19 15:46 Ur Squamous Epith Cells 1-5 /hpf (0-5/HPF) 02/02/19 15:46 Amorphous Sediment 3+ 02/02/19 15:46 Urine Bacteria Few (2-10) (None) H 02/02/19 15:46 Hyaline Casts 1-5/lpf (None) 02/02/19 15:46 Urine Mucus 1+ (Negative) H 02/02/19 15:46 Ur Culture Indicated? Specimen cultured 02/02/19 15:46 - Imaging Additional studies: Procedures Application of splint (10/05/12) Assessment and Plan (1) Metastatic renal cell carcinoma Problem details: Patient with significant weight loss profound cachexia and what appears to be widely metastatic kidney cancer. She is scheduled for a biopsy of her supraclavicular node. We did briefly discuss the treatment of metastatic kidney cancer. Her performance status is somewhat limited. If this turns out to be clear cell type, treatment options would include immunotherapy with checkpoint inhibitor. This could be potentially combined with Yervoy but I doubt that she would tolerate a combination. Alternatively, tyrosine kinase inhibitors could be considered. This would potentially have low response rate and higher toxicity but has been shown to improve survival. Given her current debilitated state, hospice also could be considered. For await the results of her biopsy in trying to review those with her and come up with a more definitive treatment plan. Current visit: Yes Status: Acute
[2019-02-04] MEDS: DEXTROSE 5%-0.45NS W/KCL 20MEQ 1,000 ML 84 MEQ IV (13:38)
--- NOTE | 2019-02-04 14:44 | OT.IP.EVAL ---
Current Diagnoses Malignant neoplasm of unspecified kidney, except renal pelvis (02/03/19) Anemia, unspecified (02/03/19) Unspecified severe protein-calorie malnutrition (02/03/19) Dehydration (02/03/19) Hypo-osmolality and hyponatremia (02/03/19) Hypokalemia (02/03/19) Hypotension, unspecified (02/03/19) Weakness (02/03/19) Syncope and collapse (02/03/19) Past Medical History (Last Reviewed 02/02/19 @ 21:34 by DRE Lorenz) Alcohol abuse (Acute) Benign breast lumps (Acute) Current every day smoker (Acute) Ovarian cyst, left (Resolved) Surgical History (Last Reviewed 02/02/19 @ 21:34 by DRE Lorenz) History of breast lump/mass excision (Acute) History of ovarian cystectomy (Acute) Occupational Therapy Inpatient Evaluation/Re-Eval M1 PT/OT-IP Prior Functional Status Start: 02/03/19 15:57 Freq: NEEDED Status: Active Protocol: Document 02/04/19 14:44 HORACE (Rec: 02/04/19 15:32 PJ [id number]) Medical Review Prior Functional Status Medical History Reviewed Yes Diet/Fluid Consistency Regular Communication No deficits noted. Able to make needs known Mobility and Gait Pt was a recent independent ambulator at home and community without AD. Pt's stated pt was able to walk through grocery store and take some car trips until 2-3 months ago. Pt started to have progressive weakness and had to use brain picker walker for mobility for the past few days at home. She also has had 2 recent unwitnessed falls at home while at work. ( found pt on floor) Activities of Daily Living and IADL's Pt was independent with eating but with very poor appetite. Pt was independent with grooming, dressing and toileting. She has been sponge bathing for past year due to difficulty standing in tub shower combo. 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 Pt does not drive. Prior Functional Level (Other details) Pt is a current 1 pack per day smoker for 50+ years. Pt has hx of ETOH abuse. Pt had seizure like event 10 yrs ago with impaired memory since then per . 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 He states he can quit this job any time if needed to care for pt. Pt's nephew, grandson and dtr live close by who will also be able to help if needed. Social History Household Members spouse Living Arrangements House Number of Floors (Floors) Two Floors Number of Stairs To Enter/Railing? 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 M2 OT-IP Current Condition Start: 02/03/19 16:07 Freq: Status: Active Protocol: Document 02/04/19 14:44 PJM (Rec: 02/04/19 15:32 PJM [id number]) Occupational Therapy Current Condition Current Condition Evaluation Date 02/04/19 Treatment Diagnosis decreased self care, mobility, activity tolerance w/new dx of renal CA w/extensive mets Diagnosis Onset Date 02/03/19 Post Operative Precautions Other Precautions fall risk M3 OT- IP Subjective and Pain Start: 02/03/19 16:07 Freq: Status: Active Protocol: Document 02/04/19 14:44 PJM (Rec: 02/04/19 15:32 PJM [id number]) OT- Subjective Occupational Therapy Visit Type Type Initial Evaluation Visit Start Time 14:00 Visit Stop Time 14:44 Total Visit Minutes 44 Notes Pt's here for today's assessment. Occupational Therapy Visit Comments Patient/Caregiver Goals pt did not verbalize goal this session OT Pain Assessment Pain When Pain Assessed After Treatment Pain Present Pain Present Pain Reported Location Right Lower Abdomen Intensity 3 Description Aching Acute M4 OT- IP ADL's Start: 02/03/19 16:07 Freq: Status: Active Protocol: Document 02/04/19 14:44 PJM (Rec: 02/04/19 15:32 PJM [id number]) OT [id number] General Evaluation Self-Feeding Ability Independent Comments OT Self-Feeding Comments pt has very poor appetite with current BMI 13.5 OT ADL-Grooming General Evaluation Grooming Ability Standby Assistance Areas Needing Assistance Face Washing Comments OT Grooming Comments after set up in bed OT ADL-Oral Care Comments Oral Care Comments pt declined this session OT ADL-Dressing General Eval Lower Body Dressing Ability Standby Assistance Areas Needing Assistance Underpants/Brief Socks OT ADL-Toileting General Evaluation Toileting Ability Standby Assistance Areas Needing Assistance Manage Clothing Perform Perineal Hygiene Devices Toileting Assistive Devices Grab Bars Raised Toilet Seat Comments OT Toileting Comments Began education with re: bathroom safety equipt options for toilet and recommend bedside commode for home use either next to bed or over toilet. OT ADL-Bathing Comments OT Bathing Comments to be assessed as activity tolerance improves; began education re: use of transfer tub seat at home and other safety equipt options M5 OT- IP IADL's Start: 02/03/19 16:07 Freq: Status: Active Protocol: Document 02/04/19 14:44 PJM (Rec: 02/04/19 15:32 PJ [id number]) OT-Instrumental Activities of Daily Living Deficits IADL Deficits Identified Deficits Home Safety Awareness Awareness of Need for Assistance at Home Good Awareness Ability to Problem Solve Emergency Unable to Problem Solve Situations Medication Management Medication Management Caregiver Provides Supervision Medication Management Comments reports pt has memory deficits Money Management Money Management Caregiver Provides Assistance Money Management Comments manages all finances Meal Preparation Meal Preparation Caregiver Provides Assist Meal Preparation Comments does all meal prep at home Bakelite Molder Bakelite Molder Caregiver Provides Assist Bakelite Molder 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 Driving Driving Caregiver Provides Assist Driving Comments pt does not drive M6 OT- IP Functional Cognition Start: 02/03/19 16:07 Freq: Status: Active Protocol: Document 02/04/19 14:44 PJM (Rec: 02/04/19 15:32 PJ [id number]) Cognitive Factors Limiting Selfcare Function Cognitive Ability Level of Alertness Alert Patient Orientation Name Place Situation Attention Span Ability Capable of Focused Attention Ability to Follow Commands Able to Follow One Step Commands Memory Description Short Term Impaired Problem Solving Ability Needs Assist to Identify Solutions Executive Function Ability Unable to Make Plans Unable to Remember Details Abstract Thinking Ability Unable to Draw Logical Conclusions Cognitive Comments Cognitive Assessment Comments Pt presents with very flat affect and does not appear to grasp any details or severity of her current diagnosis. OT- Vision and Hearing OT- Hearing Assessment OT- Hearing Assessment WFL OT- Vision Assessment Visual Acuity WFL Glasses All The Time Vision Assessment Comments pt denies any recent vision changes, wears trifocals M7 OT- IP Mobility and Balance Start: 02/03/19 16:07 Freq: Status: Active Protocol: Document 02/04/19 14:44 PJM (Rec: 02/04/19 15:32 PJM [id number]) OT- Bed Mobility Assessment Rolling Type of Rolling Roll to Right Level of Assistance Contact Guard Assistance 1 Person Assistance Head of Bed Elevated Bedrails Supine to Sit Supine to Sit Assist Minimal Assistance 1 Person Assistance Head of Bed Elevated Bedrails Sit to Supine Sit to Supine Assist Contact Guard Assistance 1 Person Assistance Head of Bed Elevated Bedrails Scooting Scooting to Edge of Bed Standby Assistance Scooting Up and Down in Bed Maximum Assistance OT-Transfer Assessment Sit to and From Stand Sit to and from Stand Contact Guard Assistance Moderate Assistance Transfers Transfer Ability Contact Guard Assistance Technique Transfer Destination Bed Toilet Transfer Technique Stand Step Pivot Devices Transfer Assistive Devices Gait Belt Front Wheeled Walker Comments Mobility Comments pt needs CGA for sit to stand from edge of bed and mod assist to arise from high toilet with heavy use of wall grab bar with FWW OT- Gait Assessment Gait Gait Assistance Required: Contact Guard Assist Distance (Feet) 20 Assistive Devices Assistive Device Gait Belt Front Wheeled Walker Comments Gait Ability Comments no LOB noted, pt takes small slow steps and needs mod verbal cues for unfamiliar FWW use. OT- Balance Assessment Sitting Balance and Reactions Static Sitting Balance Ability Good Standing Balance and Reactions Static Standing Balance Ability Good M8 OT- IP Objective Assessments Start: 02/03/19 16:07 Freq: Status: Active Protocol: Document 02/04/19 14:44 PJM (Rec: 02/04/19 15:32 PJM [id number]) OT Gross Range of Motion Upper Extremity Range of Motion Assessment Within Functional Limits OT Strength Upper Extremity Strength Assessment Within Functional Limits Hand Roll Former Strength Hand Dominance Right OT- Coordination Assessment Comments Coordination Comments BUE WFL for self care OT-Muscle Tone Assessment Muscle Tone WNL Yes OT Sensation Assessment Comments Summary Comments Pt reports some numbness in fingertips of B hands for many years; no recent changes. Edema Edema Absent M9 OT- IP Assessment and Plan Start: 02/03/19 16:07 Freq: Status: Active Protocol: Document 02/04/19 14:44 PJM (Rec: 02/04/19 15:32 PJM [id number]) OT Summary Assessment and Plan Potential Analytic Complexity at Evaluation Moderate Summary OT Impairments Pain Strength Balance Functional Cognition Functional Mobility Grooming Dressing Toileting Bathing Toilet Transfers Shower Transfers Assessment Summary Moderate complexity OT assessment completed due to complex diagnosis and past medical hx requiring extra time for chart review. Pt is a 68 yr old female with new dx of L renal CA with extensive multiple metastatic sites with biopsy results and full work up still pending. Pt also has hx of ETOH abuse and seizure like activity with subsequent short term memory deficits 10 yrs ago. Pt currently has significant performance deficits in activity tolerance, all functional mobility/transfers, standing grooming, lower body dressing, bathing and toileting. Pt has very flat affect and appears to have some cognitive deficits. She appears to have difficulty recalling details of new information provided with decreased insight into current medical situation. Will provide further cognitive assessment with results to follow. Pt currently needs 24 hr assist for safety. Pt/ appear to be leaning towards d/c home with combination of family and paid caregivers, but they are waiting for more information re: tx options from oncology before making final decision. states he can quit his temporary job any time and has resources to pay for private caregivers if needed. Goals Grooming Goal Standby Assistance Dressing Goal Standby Assistance Toileting Goal Independent Bathing Goal Standby Assistance Grab Bars Hand Held Shower Sprayer Toilet Transfer Goal Standby Assistance Raised Toilet Seat Grab Bars Shower Transfer Goal Contact Guard Assistance Tub Transfer Bench Patient/Caregiver Education Goal Demonstrate Energy Conservation and Pacing Caregiver Independent Assisting Patient Days to Meet Goals 5 Frequency of Treatment Frequency Of Treatment Once a Day Treatment Plan OT Treatment Plan ADL Training Functional Cognition Training Functional Mobility Patient/Family Education Discharge Planning Discharge Recommendations OT Discharge Recommendations Home with 24/7 Assist Other Discharge Recommendations vs SNF pending progress and ability to arrange for 24 hr care at home, ? hospice involvement Home Equipment Needs transfer tub bench, bedside commode, states he can obtain hospital bed from a friend, grab bars by tub and toilet
--- NOTE | 2019-02-04 14:44 | PC.NURSE ---
Day shift: Pt off unit for procedure at approx 1445. SL at this time.
--- NOTE | 2019-02-04 15:06 | P.PN_ITS ---
Subjective Date Patient Seen: 02/04/19 Interval history: The patient is a 68-year-old female admitted to the hospital for syncope, secondary to dehydration, and found to have metastatic renal cell carcinoma. The patient is scheduled for a biopsy of a supraclavicular lymph node today. She has been seen by Dr. Henderson from Oncology. Once the pathology comes back from the biopsy doctor [place] will be able to make further recommendations to the patient regarding treatment options. She reports feeling weak. She is not short of breath. She has no specific complaints. Her is at the bedside and I have explained plan of care to him as well. Exam Vital Signs (past 8 hours): - 02/04/19 07:35 02/04/19 08:03 02/04/19 12:42 Temperature 97.2 F L 98.1 F Pulse Rate 76 77 Respiratory Rate 15 16 Blood Pressure 101/55 L 98/59 L Pulse Oximetry 98 95 99 02/04/19 14:57 Temperature Pulse Rate 80 Respiratory Rate 16 Blood Pressure 120/71 Pulse Oximetry 100 Oxygen Delivery Method Room Air Oxygen Flow Rate 0 Narrative Exam Narrative: MA seated ill-appearing female lying in bed Lungs: Decreased breath sounds but clear Cardiac exam: Regular rate and rhythm normal S1-S2 with a 2/6 systolic ejection murmur Abdomen: Soft mildly tender in the right upper quadrant but nondistended ques tion palpable mass on the right Extremities: No edema Neck: Left supraclavicular node firm easily palpated Objective Labs Result Diagrams: 02/04/19 05:29 02/04/19 05:29 Labs: Laboratory Results - last 24 hr 02/03/19 02/04/19 02/04/19 18:10 05:29 05:29 WBC 9.6 RBC 3.14 L Hgb 8.0 L Hct 24.8 L MCV 79.0 L MCH 25.6 L MCHC 32.4 RDW 17.4 H Plt Count 280 Neut % (Auto) 78.3 H Lymph % (Auto) 11.6 L Cottle % (Auto) 7.9 Eos % (Auto) 1.9 L Baso % (Auto) 0.3 Neut # (Auto) 7500 H Lymph # (Auto) 1100 Cottle # (Auto) 800 Eos # (Auto) 200 Baso # (Auto) 0 PT 14.2 H INR 1.2 APTT 35 D Sodium Potassium 3.8 Chloride Carbon Dioxide BUN Creatinine Estimated GFR BUN/Creatinine Ratio Glucose Calcium Total Bilirubin AST ALT Alkaline Phosphatase Total Protein Albumin Globulin Albumin/Globulin Ratio 02/04/19 05:29 WBC RBC Hgb Hct MCV MCH MCHC RDW Plt Count Neut % (Auto) Lymph % (Auto) Cottle % (Auto) Eos % (Auto) Baso % (Auto) Neut # (Auto) Lymph # (Auto) Cottle # (Auto) Eos # (Auto) Baso # (Auto) PT INR APTT Sodium 129 L Potassium 3.6 Chloride 101 Carbon Dioxide 21 L BUN 19 H Creatinine 0.90 Estimated GFR > 60.0 BUN/Creatinine Ratio 21.1 Glucose 108 Calcium 7.7 L Total Bilirubin < 0.1 L AST 20 ALT 8 L Alkaline Phosphatase 90 Total Protein 5.2 L Albumin 2.1 L Globulin 3.1 Albumin/Globulin Ratio 0.7 L Assessment & Plan (1) Anemia: Problem details: Suspect this is delusional and related to her underlying malignancy, present on admission Current visit: Yes Status: Acute (2) Hyponatremia: Problem details: Hyponatremia,, present on admission likely related to free water as well Will continue to monitor Current visit: Yes Status: Acute (3) Dehydration: Problem details: Dehydration, present on admission related to poor p.o. intake. Will Hep-Lock IV fluid and continue to encourage oral intake. Current visit: Yes Status: Acute (4) Other severe protein-calorie malnutrition: Problem details: Severe protein calorie malnutrition, present on admission. Will ask for a nutrition consultation. Patient appears to have cachexia secondary to metastatic disease. would consider roly a spot will defer until oncology evaluation. Current visit: Yes Status: Acute (5) Metastatic renal cell carcinoma: Problem details: Patient with significant weight loss profound cachexia and what appears to be widely metastatic kidney cancer. She is scheduled for a biopsy of her supraclavicular node. We did briefly discuss the treatment of metastatic kidney cancer. Her performance status is somewhat limited. If this turns out to be clear cell type, treatment options would include immunotherapy with checkpoint inhibitor. This could be potentially combined with Yervoy but I doubt that she would tolerate a combination. Alternatively, tyrosine kinase inhibitors could be considered. This would potentially have low response rate and higher toxicity but has been shown to improve survival. Given her current debilitated state, hospice also could be considered. For await the results of her biopsy in trying to review those with her and come up with a more definitive treatment plan. Qualifiers: Laterality: Current visit: Yes Status: Acute (6) Weakness: Problem details: Continue PT OT Current visit: Yes Status: Acute Assessment & Plan narrative: I anticipate discharge home once clinical diagnosis has been made. We will be awaiting biopsy results will need to determine whether the patient can go directly home with home health or whether prison will be indicated.
--- NOTE | 2019-02-04 15:08 | CM.DPC ---
DCP Cont: Attempted to call , Adeel, to discuss discharge planning, and to offer any resources that patient may need. At this time, is with patient, for she is having C.T. biopsy of neck. Left him a message on his phone. Is noted that physical therapy team is encouraging skilled, for he is still working temporarily, but is planning on ending his contract job soon. Netta, from occupational therapy had spoken to earlier, and she stated that he is prepared to get hospital bed from [facility], and have friends help her out at home. Have not yet spoken about hospice, for at this time, they are looking at treatment options. Had brief conversation with Rina, public health social worker at oncology. Let her know that Dr. Henderson has already seen patient, and that she is having biopsy now. Will continue to attempt reaching out to patient and . If skilled may be an option, can have this discussion. If and patient are wishing to have her go home, will have another discussion regarding this, for she may need 24 hour care, secondary to her history of falls and syncopal episodes at home. P: DCP to continue to follow and offer resources for patient and as well. Rachell Esquivel RN/Bi Lead
--- NOTE | 2019-02-04 15:30 | DI.CT.S_ITS ---
PROCEDURE: CT BIOPSY SOFT TISSUE NECK Sedation analgesia for 15 minutes. INDICATIONS: biopsy metastatic lesion. TECHNIQUE: The indications, alternatives, benefits, risks, and possible complications of the procedure were communicated to the patient. Informed written consent from the patient was obtained and placed in the chart. Continuous EKG and hemodynamic monitoring was started by trained personnel. The patient was brought to the CT suite and green prize packer spiral CT imaging was performed with localization grid. The appropriate site for percutaneous access to the biopsy target was marked, was prepped and draped sterilely, and was infused with local anaesthesia. Under CT guidance, a core biopsy trocar and needle set was advanced to the biopsy target, and specimen(s) were obtained. The trocar and needle were then removed, and the patient was sent for post-procedure monitoring. COMPARISON: [facility], CT, CT ANGIO CHEST ABDOMEN PELVIS, 02/02/2019, 21:16. FINDINGS: Biopsy site: Left supraclavicular mass Needle: 22 gauge biopsy needle with introducer trocar. Number of passes: 3 Medications: 1% lidocaine for local anaesthesia. IV Fentanyl and Versed for conscious sedation for 15 minutes (see nursing record). Complications: None. IMPRESSION: Successful CT-guided biopsy of left supraclavicular mass. Dictated by: Monica Monreal M.D. on 02/04/2019 at 15:54 Approved by: Monica Monreal M.D. on 02/04/2019 at 15:59
[2019-02-04] MEDS: ENOXAPARIN 40 MG/0.4 ML SYRINGE 35 MG SUBCUT (16:58)
[2019-02-04] MEDS: fentaNYL 100 MCG/2 ML INJ 25 MCG IV (17:28)
--- NOTE | 2019-02-04 19:34 | PC.NURSE ---
Pt arrived back to room 221 from PACU via bed. A/O x3, , Adeel in room. Pt denies pain at this time. re started D5 1/2 NS with 20KCL @ 84 to RFA, LFA SL. 99%RA, LS clear denies SOB. Bt+ denies nausea, clears diet, declined food, provided water. Orders to checking left neck site Q-6hr, Hct in four hrs. Pt cachectic appearance, weakness, dehydration, and malnourished. 1PA FWW to BRP to void. Bed alarm on. would like to be notified in advance, for meeting with Dr. Henderson, as to make arrangements to be off from work.
[2019-02-04 21:08] LABS: Hematocrit 26.6 % (36-46)
[2019-02-05] VITALS (14 sets, daily range): BP systolic 80–126; BP diastolic 49–83; PULSE 65–98; RESP 16–20; TEMP 36.5–37.9; O2SAT 96–100
[2019-02-05] MEDS: DEXTROSE 5%-0.45NS W/KCL 20MEQ 1,000 ML 84 MEQ IV (02:34)
[2019-02-05] MEDS: SODIUM CHLORIDE 0.9% FLUSH 10 ML IV ×2 (09:04→22:25)
--- NOTE | 2019-02-05 09:11 | PT.IPTN ---
Current Diagnoses Malignant neoplasm of unspecified kidney, except renal pelvis (02/03/19) Anemia, unspecified (02/03/19) Unspecified severe protein-calorie malnutrition (02/03/19) Dehydration (02/03/19) Hypo-osmolality and hyponatremia (02/03/19) Hypokalemia (02/03/19) Hypotension, unspecified (02/03/19) Weakness (02/03/19) Syncope and collapse (02/03/19) Physical Therapy Treatment Note M2 PT-IP Current Condition Start: 02/03/19 15:57 Freq: NEEDED Status: Active Protocol: Document 02/03/19 14:00 HH (Rec: 02/03/19 16:22 HH [id number]) Physical Therapy Current Condition Current Condition Evaluation Date 02/03/19 Treatment Diagnosis Syncope, frequent falls, impaired gait and activity tolerance Onset Date 02/03/19 Weight Bearing Status Weight Bearing Status Weight Bear as Tolerated M3 PT-IP Subjective Start: 02/03/19 15:57 Freq: NEEDED Status: Active Protocol: Document 02/05/19 09:10 LJ (Rec: 02/05/19 09:11 LJ [id number]) Subjective Physical Therapy Visit Type Type Patient Refusal Notes Nursing and family in room. Pt states she has already been up this am and is too tired to do anything today. M4 PT-IP Mobility and Gait Start: 02/03/19 15:57 Freq: NEEDED Status: Active Protocol: Document 02/04/19 10:30 GGD (Rec: 02/04/19 12:18 GGD [id number]) PT-Bed Mobility Assessment Supine to Sit Supine to Sit Minimal Assistance Sit to Supine Sit to Supine Contact Guard Assistance Scooting Scooting to Edge of Bed Contact Guard Assistance PT-Transfer Assessment Sit to and From Stand Sit to and from Stand Minimal Assistance Moderate Assistance 1 Person Assistance Use of Upper Extremities Equipment Transfer Assistive Device Gait Belt Front Wheeled Walker Orthotic/Prosthetic Devices or Brace: No Transfers Transfer Destination Bed Toilet Transfer Ability Level of Assist Minimal Assistance 1 Person Assistance Comments Mobility Comments Pt need min A for sit to stand from bed, and mod A for sit to stand toilet. Gait Assessment Gait Gait Assistance Required: Contact Guard Assist Distance (Feet) 20 Able to Maintain Weight Bearing Status Yes During Gait Assistive Devices Assistive Device Gait Belt Front Wheeled Walker Orthotic/Prosthetic Devices or Brace: No Gait Deviations General Gait Pattern Ataxic Decreased Stride Length Decreased Feet Clearance Flexed Trunk Narrow Based Gait Step-to Gait Factors Limiting Gait Function Factors Limiting Gait Function Abnormal Tonal Influences Decreased Activity Tolerance Decreased Strength Poor Balance Poor Safety Awareness Respiratory Distress M5 PT-IP Objective Assessments Start: 02/03/19 15:57 Freq: NEEDED Status: Active Protocol: Document 02/03/19 14:00 (Rec: 02/03/19 16:22 [id number]) Orientation Orientation/Cognition Level of Alertness Alert Orientation Name Age Birthday Month Date Year Day of Week Place Situation Language Function Ability No Deficits Noted Safety Awareness Understands Safety Issues Memory Description No Deficits Noted Gross Range of Motion Upper Extremity ROM Assessment Within Functional Limits Lower Extremity ROM Assessment Within Functional Limits Strength Upper Extremity Strength Assessment Bilaterally Impaired Lower Extremity Strength Assessment Bilaterally Impaired Comments Strength Comments B UE and LEs are 3+/5 grossly Coordination Assessment Gross Coordination Gross Coordination WNL Assessment Finger to Nose Test Normal Performance Pronation/Supination Test Normal Performance Sensation Assessment Sensation Gross Sensation WNL Light Touch Intact Proprioception (Position) Intact Muscle Tone Muscle Tone WNL Yes M6 PT-IP Treatment Start: 02/03/19 15:57 Freq: NEEDED Status: Active Protocol: Document 02/03/19 14:00 (Rec: 02/03/19 16:22 [facility] [id number]) Physical Therapy Treatment Education Education Provided Precautions Weight Bearing Status Post-Op Packet Safety M7 PT-IP Assessment and Plan Start: 02/03/19 15:57 Freq: NEEDED Status: Active Protocol: Document 02/04/19 10:30 GGD (Rec: 02/04/19 12:18 GGD [id number]) PT Summary Assessment and Plan Summary Assessment Summary Pt need assist with bed mobility and sit to stand. She did fatigue with short distance gait. She was safe and no LOB during gait and transfers. She would benefit from SNF rehab to improve functional mobility. Frequency of Treatment Frequency Of Treatment Once a Day Treatment Plan Physical Therapy Treatment Plan Bed Mobility Training Transfer Training Gait Training Therapeutic Exercise Balance Retraining Post Op Education Discharge Planning Hot or Cold Pack Neuromuscular Re-ed Other Recommendations and Next Treatment bed mob, transfer and gait Focus training as anisha with LRAD climb stairs if possible Recommendations To Nursing Amount of Assist Needed 1 Person Assist Discharge Recommendations PT Discharge Recommendations SNF Rehab
[2019-02-05 09:24] LABS: HEMOLYSIS < 15 (0-50); Iron 12 ug/dL (37-170)
[2019-02-05 09:36] LABS: Percent Iron Saturation 10 % (15-50); Total Iron Binding Capacity 123 ug/dL (265-497)
[2019-02-05 10:01] LABS: Transferrin < 80 mg/dL (206-381)
--- NOTE | 2019-02-05 11:04 | P.PN_ITS ---
Subjective Date Patient Seen: 02/05/19 Interval history: The patient is a 68-year-old female with a history of probable metastatic renal cell carcinoma. The patient underwent a supraclavicular lymph node biopsy yesterday. She does not recall the event. She has no specific complaints today. She has some minimal right-sided abdominal pain with palpation and reports some shortness of breath. Her appetite continues to be poor for although she is trying to eat. The patient is minimally cooperative with PT and OT. Her daughter is at the bedside and I explained to them that we will follow up with them once the pathology results are available. I spoke to the pathology lab they received the specimen today and anticipate slides with results tomorrow. Exam Vital Signs (past 8 hours): - 02/05/19 03:43 02/05/19 07:00 02/05/19 09:05 Temperature 97.9 F 98.8 F Pulse Rate 75 72 Respiratory Rate 18 16 Blood Pressure 104/59 L 97/62 Pulse Oximetry 100 97 97 02/05/19 10:51 Temperature 98.9 F Pulse Rate 65 Respiratory Rate 20 Blood Pressure 80/49 L Pulse Oximetry 98 Oxygen Delivery Method Room Air Oxygen Flow Rate 0 Narrative Exam Narrative: Ill-appearing cachectic female Lungs: Clear to auscultation Cardiac exam: Regular rate and rhythm normal S1-S2 Abdomen: Soft mildly tender in the right upper quad, question palpable mass in the right upper Extremity no edema Objective Labs Result Diagrams: 02/04/19 20:54 02/04/19 05:29 Labs: Laboratory Results - last 24 hr 02/04/19 02/05/19 20:54 08:17 Hct 26.6 L Iron 12 L TIBC 123 L % Saturation 10 L Transferrin < 80 L Assessment & Plan (1) Metastatic renal cell carcinoma: Problem details: Patient with significant weight loss profound cachexia and what appears to be widely metastatic kidney cancer. She is scheduled for a biopsy of her supraclavicular node. We did briefly discuss the treatment of metastatic kidney cancer. Her performance status is somewhat limited. If this turns out to be clear cell type, treatment options would include immunotherapy with checkpoint inhibitor. This could be potentially combined with Yervoy but I doubt that she would tolerate a combination. Alternatively, tyrosine kinase inhibitors could be considered. This would potentially have low response rate and higher toxicity but has been shown to improve survival. Given her current debilitated state, hospice also could be considered. For await the results of her biopsy in trying to review those with her and come up with a more definitive treatment plan. discussed with pathology anticipate path results tomorrow Qualifiers: Laterality: Current visit: Yes Status: Acute (2) Hyponatremia: Problem details: Hyponatremia,, present on admission likely related to free water as well Will continue to monitor Current visit: Yes Status: Acute (3) Anemia: Problem details: Suspect this is delusional and related to her underlying malignancy, present on admission Patient is iron deficient will start her on 1 dose of IV iron today. Current visit: Yes Status: Acute (4) Dehydration: Problem details: Dehydration, present on admission related to poor p.o. intake. Will Hep-Lock IV fluid and continue to encourage oral intake. Current visit: Yes Status: Acute (5) Other severe protein-calorie malnutrition: Problem details: Severe protein calorie malnutrition, present on admission. Will ask for a nutrition consultation. Patient appears to have cachexia secondary to metastatic disease. would consider roly a spot will defer until oncology evaluation. Current visit: Yes Status: Acute (6) Weakness: Problem details: Continue PT OT Current visit: Yes Status: Acute (7) Malnutrition: Problem details: Will add Ensure to her meals Qualifiers: Malnutrition type: Protein-calorie malnutrition severity: Current visit: Yes Status: Acute Assessment & Plan narrative: Anticipated the patient will require group home rehab at Dr. roman. expect discharge in 1-2 days
--- NOTE | 2019-02-05 11:15 | PC.NURSE ---
Addendum entered by Roopa Kyle R.N. 02/05/19 12:49: correction, see Nancy Ireland note today for orthostatic BP/P measurements. Addendum entered by Roopa Kyle R.N. 02/05/19 12:30: per conversation with Dr. Cota around 1215. Updated with orthostatic BP/P. see flowsheet. Plan for 1 unit Irradiated RBC's, no lasix to be given and then follow with Venofer transfusion. Original Note: Day Shift- Pt oriented X3, disoriented to time, date. Cooperative with care. High fall risk precautions in place, bed alarm on at all times. GANG RIDER reported low BP around 1035 as YOLA 75/44 and right wrist as 80/49. At 1100 BP rechecked for right wrist as 80/49 and pulse 77, OSKAR 92/60 pulse 80. Pt asymptomatic in bed. Plan for orthostatic BP/P and report to
--- NOTE | 2019-02-05 11:53 | PC.NURSE ---
EQUIPMENT MONITOR PHOTOTYPESETTING took orthostatic blood pressures per RN request. Right Arm Supine 90/60 Heart Rate 85 Sitting 80/56 Heart Rate 93 Standing 98/57 Heart Rate 95
--- NOTE | 2019-02-05 12:00 | ONC.NAV ---
Description: Care Coordination Activity: This AIRPLANE PATROLLER consulted with Dr. Henderson as to what the next steps are for patient, and if he'd like me to meet with her/spouse re: assessing for immediate needs, understanding of diagnosis, and goals conversation. He has asked that this AIRPLANE PATROLLER wait until the pathology results are back, and he has an opportunity to meet with patient/family to discuss options. AIRPLANE PATROLLER will f/u with patient at that time, unless there are urgent needs re: information and teaching that would be beneficial for her before then.
--- NOTE | 2019-02-05 12:20 | OT.IP.TRT ---
Current Diagnoses Malignant neoplasm of unspecified kidney, except renal pelvis (02/03/19) Anemia, unspecified (02/03/19) Unspecified severe protein-calorie malnutrition (02/03/19) Unspecified protein-calorie malnutrition (02/03/19) Dehydration (02/03/19) Hypo-osmolality and hyponatremia (02/03/19) Hypokalemia (02/03/19) Hypotension, unspecified (02/03/19) Weakness (02/03/19) Syncope and collapse (02/03/19) Occupational Therapy Treatment Note M2 OT-IP Current Condition Start: 02/03/19 16:07 Freq: Status: Active Protocol: Document 02/04/19 14:44 PJM (Rec: 02/04/19 15:32 PJM [email or web address]) Occupational Therapy Current Condition Current Condition Evaluation Date 02/04/19 Treatment Diagnosis decreased self care, mobility, activity anisha w/new dx of renal CA w/mets Diagnosis Onset Date 02/03/19 Post Operative Precautions Other Precautions fall risk M3 OT- IP Subjective and Pain Start: 02/03/19 16:07 Freq: Status: Active Protocol: Document 02/05/19 12:20 PJM (Rec: 02/05/19 13:37 PJ [email or web address]) OT- Subjective Occupational Therapy Visit Type Type Treatment Note Visit Start Time 11:56 Visit Stop Time 12:20 Total Visit Minutes 24 Notes Partial co tx with P.T. due to pt's low activity tolerance. Occupational Therapy Visit Comments Patient Comments I am so tired. Do I have to walk? Patient/Caregiver Goals none verbalized OT Pain Assessment Pain When Pain Assessed After Treatment Pain Present Pain Present Pain Reported Location Right Lower Abdomen Intensity 4 Scale Used Numeric (1 - 10) M4 OT- IP ADL's Start: 02/03/19 16:07 Freq: Status: Active Protocol: Document 02/05/19 12:20 PJM (Rec: 02/05/19 13:37 PJ [email or web address]) OT ADL-Grooming General Evaluation Areas Needing Assistance Combing/Brushing Hair Comments OT Grooming Comments Max assist while pt standing with P.T. to remove tangles OT ADL-Oral Care General Eval Oral Care Ability Standby Assistance Comments Oral Care Comments standing at sink 4 min; pt able to stand unsupported with no loss of balance to set up oral care, then leans on sink to actually brush teeth. OT ADL-Toileting Comments OT Toileting Comments pt declines need this session OT ADL-Bathing Comments OT Bathing Comments pt clarifying that her tub at home is a claw foot tub and it is to high for her to step over easily so she has been sponge bathing for past year. plans to try transfer tub bench at home if it can be modified to go over high tub. M5 OT- IP IADL's Start: 02/03/19 16:07 Freq: Status: Active Protocol: Document 02/04/19 14:44 PJM (Rec: 02/04/19 15:32 PJM [email or web address]) OT-Instrumental Activities of Daily Living Deficits IADL Deficits Identified Deficits Home Safety Awareness Awareness of Need for Assistance at Home Good Awareness Ability to Problem Solve Emergency Unable to Problem Solve Situations Medication Management Medication Management Caregiver Provides Supervision Medication Management Comments reports pt has memory deficits Money Management Money Management Caregiver Provides Assistance Money Management Comments manages all finances Meal Preparation Meal Preparation Caregiver Provides Assist Meal Preparation Comments does all meal prep at home Metal Patternmaker Metal Patternmaker Caregiver Provides Assist Metal Patternmaker Comments does all houshold chores Driving Driving Caregiver Provides Assist Driving Comments pt does not drive M6 OT- IP Functional Cognition Start: 02/03/19 16:07 Freq: Status: Active Protocol: Document 02/05/19 12:20 PJM (Rec: 02/05/19 13:37 PJM [email or web address]) Cognitive Factors Limiting Selfcare Function Cognitive Ability Level of Alertness Alert Cognitive Comments Cognitive Assessment Comments Pt making more eye contact today and smiled x2 this session. Pt still does not verbalize much insight into her current diagnosis or state any preference about d/c plan . M7 OT- IP Mobility and Balance Start: 02/03/19 16:07 Freq: Status: Active Protocol: Document 02/05/19 12:20 PJM (Rec: 02/05/19 13:37 PJ [email or web address]) OT-Transfer Assessment Sit to and From Stand Sit to and from Stand Contact Guard Assistance Transfers Transfer Ability Contact Guard Assistance Technique Transfer Destination Chair Comments Mobility Comments pt needs verbal cues to keep FWW close when turning to sit in chair; needs verbal cues to lean forward and for hand/ foot placement for sit to stand OT- Gait Assessment Comments Gait Ability Comments see P.T. notes OT- Balance Assessment Sitting Balance and Reactions Static Sitting Balance Ability Good Standing Balance and Reactions Static Standing Balance Ability Good M8 OT- IP Objective Assessments Start: 02/03/19 16:07 Freq: Status: Active Protocol: Document 02/04/19 14:44 PJM (Rec: 02/04/19 15:32 PJM [email or web address]) OT Gross Range of Motion Upper Extremity Range of Motion Assessment Within Functional Limits OT Strength Upper Extremity Strength Assessment Within Functional Limits Hand Customer Relations Representative Strength Hand Dominance Right OT- Coordination Assessment Comments Coordination Comments BUE WFL for self care OT-Muscle Tone Assessment Muscle Tone WNL Yes OT Sensation Assessment Comments Summary Comments Pt reports ome numbness in fingertips of B hands for many years; no recent changes. Edema Edema Absent M9 OT- IP Assessment and Plan Start: 02/03/19 16:07 Freq: Status: Active Protocol: Document 02/05/19 12:20 PJM (Rec: 02/05/19 13:37 PJM [email or web address]) OT Summary Assessment and Plan Summary Assessment Summary Pt needs encouragement to participate today, but then did better with activity tolerance. Pt stood 4 min at sink for oral care and walked longer distance with P.T. today. Pt's BP low this session but pt asymptomatic. See P.T. note for BP details. Pt's affect somewhat brighter today with better eye contact and occasional smile. here and states pt's daughter and granddaughter can both take family leave to assist with pt's care at d/c. Further education re: home equipt recommendations provided. Goals Grooming Goal Standby Assistance Dressing Goal Standby Assistance Toileting Goal Independent Bathing Goal Standby Assistance Grab Bars Hand Held Shower Sprayer Toilet Transfer Goal Standby Assistance Raised Toilet Seat Grab Bars Shower Transfer Goal Contact Guard Assistance Tub Transfer Bench Patient/Caregiver Education Goal Demonstrate Energy Conservation and Pacing Caregiver Independent Assisting Patient Days to Meet Goals 4 Frequency of Treatment Frequency Of Treatment Once a Day Treatment Plan OT Treatment Plan ADL Training Functional Cognition Training Functional Mobility Patient/Family Education Discharge Planning Discharge Recommendations OT Discharge Recommendations Home with 24/7 Assist Other Discharge Recommendations vs SNF pending progress and ability to arrange for 24 hr care at home Home Equipment Needs transfer tub bench, bedside commode, states he can obtain hospital bed from a friend, grab bars by tub and toilet
--- NOTE | 2019-02-05 12:46 | PT.IPTN ---
Current Diagnoses Malignant neoplasm of unspecified kidney, except renal pelvis (02/03/19) Anemia, unspecified (02/03/19) Unspecified severe protein-calorie malnutrition (02/03/19) Unspecified protein-calorie malnutrition (02/03/19) Dehydration (02/03/19) Hypo-osmolality and hyponatremia (02/03/19) Hypokalemia (02/03/19) Hypotension, unspecified (02/03/19) Weakness (02/03/19) Syncope and collapse (02/03/19) Physical Therapy Treatment Note M2 PT-IP Current Condition Start: 02/03/19 15:57 Freq: NEEDED Status: Active Protocol: Document 02/03/19 14:00 HH (Rec: 02/03/19 16:22 [email or web address]) Physical Therapy Current Condition Current Condition Evaluation Date 02/03/19 Treatment Diagnosis Syncope, frequent falls, impaired gait and activity tolerance Onset Date 02/03/19 Weight Bearing Status Weight Bearing Status Weight Bear as Tolerated M3 PT-IP Subjective Start: 02/03/19 15:57 Freq: NEEDED Status: Active Protocol: Document 02/05/19 12:05 HH (Rec: 02/05/19 12:46 [email or web address]) Subjective Physical Therapy Visit Type Type Treatment Note Visit Start Time 12:05 Visit Stop Time 12:25 Total Visit Minutes 20 Notes Per RN report, pt BP has been at 90s/50s this am. Pt's at bedside. Number of HEALTHCARE SALES REPRESENTATIVE Visits 0 Physical Therapy Visit Comments Patient Comments Pt firstly refused due to fatigue. Pt agreeable to mobilize with PT and OT after encouragement. Therapy Pain Assessment Pain When Pain Assessed At Rest Pain Present Pain Present Pain Reported Location Right Lower Abdomen Intensity 4 Scale Used Numeric (1 - 10) Description Aching Dull Pain Management Techniques Modification of Treatment Re-positioning Timing of Activity with Medications M4 PT-IP Mobility and Gait Start: 02/03/19 15:57 Freq: NEEDED Status: Active Protocol: Document 02/05/19 12:05 HH (Rec: 02/05/19 12:46 [email or web address]) PT-Transfer Assessment Sit to and From Stand Sit to and from Stand Minimal Assistance 1 Person Assistance Use of Upper Extremities Equipment Transfer Assistive Device Gait Belt Front Wheeled Walker Orthotic/Prosthetic Devices or Brace: No Transfers Transfer Destination Chair Transfer Technique Stand Step Pivot Transfer Ability Level of Assist Minimal Assistance 1 Person Assistance Comments Mobility Comments BP at 90s/50s during transfers . Pt got up from chair to sink counter and did grooming with 1UE support on counter for 5 mins. Pt then went for a walk and returned to chair. She required cues to keep her FWW close to her and hand placements on chair armrest during stand to sit. Gait Assessment Gait Gait Assistance Required: Contact Guard Assist Distance (Feet) 80 Able to Maintain Weight Bearing Status Yes During Gait Assistive Devices Assistive Device Gait Belt Front Wheeled Walker Orthotic/Prosthetic Devices or Brace: No Gait Deviations General Gait Pattern Decreased Stride Length Decreased Feet Clearance Factors Limiting Gait Function Factors Limiting Gait Function Decreased Activity Tolerance Poor Safety Awareness Respiratory Distress Comments Gait Comments Pt amb from chair to sink counter and to hallway and returned back to chair for 80 feet in total with FWW. Pt was steady with gait but gradually showed signs of SOB and fatigue. Pt requested to sit at approx 70feet. O2 sat was stable and BP ranged from 90/50 --> 96/41 --> 96/54 HR 88-102. PT-Balance Assessment Sitting Balance and Reactions Static Sitting Balance Ability Normal Dynamic Sitting Balance Ability Normal Standing Balance and Reactions Static Standing Balance Ability Good Dynamic Standing Balance Ability Good Device Used FWW M5 PT-IP Objective Assessments Start: 02/03/19 15:57 Freq: NEEDED Status: Active Protocol: Document 02/03/19 14:00 (Rec: 02/03/19 16:22 [email or web address]) Orientation Orientation/Cognition Level of Alertness Alert Orientation Name Age Birthday Month Date Year Day of Week Place Situation Language Function Ability No Deficits Noted Safety Awareness Understands Safety Issues Memory Description No Deficits Noted Gross Range of Motion Upper Extremity ROM Assessment Within Functional Limits Lower Extremity ROM Assessment Within Functional Limits Strength Upper Extremity Strength Assessment Bilaterally Impaired Lower Extremity Strength Assessment Bilaterally Impaired Comments Strength Comments B UE and LEs are 3+/5 grossly Coordination Assessment Gross Coordination Gross Coordination WNL Assessment Finger to Nose Test Normal Performance Pronation/Supination Test Normal Performance Sensation Assessment Sensation Gross Sensation WNL Light Touch Intact Proprioception (Position) Intact Muscle Tone Muscle Tone WNL Yes M6 PT-IP Treatment Start: 02/03/19 15:57 Freq: NEEDED Status: Active Protocol: Document 02/03/19 14:00 (Rec: 02/03/19 16:22 [email or web address]) Physical Therapy Treatment Education Education Provided Precautions Weight Bearing Status Post-Op Packet Safety M7 PT-IP Assessment and Plan Start: 02/03/19 15:57 Freq: NEEDED Status: Active Protocol: Document 02/05/19 12:05 [email or web address] (Rec: 02/05/19 12:46 [email or web address]) PT Summary Assessment and Plan Potential Rehabilitation Potential Good Status of Condition at Evaluation Stable Summary Impairments Strength Balance Bed Mobility Transfers Gait Activity Tolerance Assessment Summary Spoke to pt's , He is going to get a hospital bed, BSC and FWW [facility], and have friends help her out at home. He is also waiting for oncology reports to determine d/c planning and he will possbily quit his job within this week. Pt also cont show improvements with functional mobility today: min A for sit to stand, CGA for amb. Pt might be able to d/c home with adequate DME and family assistance once she is medically stable. HH could be an option to improve her mobility. Frequency of Treatment Frequency Of Treatment Once a Day Treatment Plan Physical Therapy Treatment Plan Bed Mobility Training Transfer Training Gait Training Therapeutic Exercise Balance Retraining Post Op Education Discharge Planning Hot or Cold Pack Neuromuscular Re-ed Other Recommendations and Next Treatment bed mob, transfer and gait Focus training as anisha with LRAD climb stairs if possible Recommendations To Nursing Amount of Assist Needed 1 Person Assist Discharge Recommendations PT Discharge Recommendations Home with Assistance Home Health SNF Rehab Other Discharge Recommendations Spoke to pt's , He is going to get a hospital bed, BSC and FWW from [facility], and have friends help her out at home. He is also waiting for oncology reports to determine d/c planning and he will possbily quit his job within this week. Pt might be able to d/c home with adequate DME and family assistance once she is medically stable. HH could be an option to improve her mobility. Equipment Needed for Home Before FWW, hospital bed, BSC, raised Discharge toilet seat
--- NOTE | 2019-02-05 15:40 | CM.DPC ---
DCP: continued: Case received, EMR reviewed. Discussed case in Team Rounds. Dr. Cota confirms that this has just been given dx of likely metastatic kidney cancer. DC space planner Betty's note of yesterday indicated that she had spoken with oncologyPT Navigator/ social work job titles/Kamala (who is also part of the CM team). Did speak with Kamala about noon today in followup. She stated that she had conferred with Dr. Henderson/ oncology center who is consulting on this case and he advised her to wait until biopsy results are in. She noted she was leaving for an appt but would be putting in a CM Pt note re specifics of this discussion. She notes a palliative approach may well be indicated but this is not clear yet. P: Will look more closely at this case tomorrow, met pt and discuss POC and dc issues and options with pt and her as these become clearer.
[2019-02-05] MEDS: IRON SUCROSE 200 MG in SODIUM CHLORIDE 0.9% 100 ML 220 ML IV (23:08)
[2019-02-06] VITALS (10 sets, daily range): BP systolic 96–152; BP diastolic 51–81; PULSE 77–90; RESP 16–22; TEMP 36.1–36.9; O2SAT 96–100
--- NOTE | 2019-02-06 02:08 | PC.NURSE ---
Shift note: Received pt from evening shift. During assessment pt answered name and but when asked age, responded however many years that makes me, when asked where she was she said not sure, this RN did not feel that pt was apt to answer any further orientation questions. Pt's overall affect during assessment was very flat and delayed with several fine and whatever answers. Earlier in shift this RN was called into the room to assist in transferring pt back to bed from [facility] as pt was unable to rise from the commode under her own power. Assessed pt's coccyx, allevyn dressing had shadow drainage to center of dressing, pt was positioned on waffle cushion to alleviate pressure to area that is exacerbated by cachexia. Pt's iron infusion was completed and pt was saline locked for the rest of the night pending new orders. Will continue to monitor for safety and encourage pt to off load and/or switch positions.
[2019-02-06 05:56] LABS: Add Manual Diff / Slide Review NO; Basophils Absolute Auto 0 /uL (0-100); Basophils Percent Auto 0.3 % (0-2); Eosinophils Absolute Auto 100 /uL (0-450); Eosinophils Percent Auto 1.6 % (2-4); Hematocrit 33.3 % (36-46); Hemoglobin 11.1 g/dL (12.0-16.0); Lymphocytes Absolute Auto 800 /uL (1100-4500); Lymphocytes Percent Auto 10.4 % (25-40); Mean Corpuscular HGB Conc 33.3 % (30-36); Mean Corpuscular Hemoglobin 26.4 PG (26-34); Mean Corpuscular Volume 79.5 fL (80-100); Monocytes Absolute Auto 500 /uL (0-900); Monocytes Percent Auto 7.3 % (3-14); Neutrophils Absolute Auto 6100 /uL (1500-7000); Neutrophils Percent Auto 80.4 % (50-75); Platelet Count 232 X10^3/uL (150-400); Red Blood Cell Count 4.19 X10^6/uL (4.0-5.2); Red Cell Distribution Width 17.3 % (11.6-14.8); White Blood Cell Count 7.5 X10^3/uL (4.5-11.0)
[2019-02-06 06:13] LABS: Alanine Aminotransferase 8 IU/L (9-52); Albumin 2.2 g/dL (3.5-5.0); Albumin Globulin Ratio 0.7 (1.0-2.8); Alkaline Phosphatase 110 U/L (38-126); Aspartate Aminotransferase 16 IU/L (14-36); BUN Creatinine Ratio 18.6 (6-22); Bilirubin Total 0.7 mg/dL (0.2-1.3); Blood Urea Nitrogen 13 mg/dL (7-17); Calcium 7.4 mg/dL (8.4-10.2); Carbon Dioxide 23 mmol/L (22-32); Chloride 98 mmol/L (98-107); Estimated Glomerular Filt Rate > 60.0 mL/min (>60); Globulin 3.3 g/dL (1.7-4.1); Glucose 84 mg/dL (80-110); HEMOLYSIS < 15 (0-50); Potassium 3.3 mmol/L (3.4-5.1); Sodium 127 mmol/L (137-145); Total Protein 5.5 g/dL (6.3-8.2)
[2019-02-06] MEDS: SODIUM CHLORIDE 0.9% FLUSH 10 ML IV ×2 (08:37→19:22)
[2019-02-06] MEDS: POTASSIUM CHLORIDE 40 MEQ in SODIUM CHLORIDE 0.9% 500 ML 130 ML IV (08:37)
--- NOTE | 2019-02-06 08:51 | ONC.NAV ---
Description: Care Coordination Activity: RELIEF MAP MODELER f/u with Dr. Henderson after his consult with patient while she is inpt status. Dr. Henderson has asked this RELIEF MAP MODELER to wait until after the pathology comes back and he has an opportunity to speak with her about available options for oncologic treatment. He acknowledges the severity of her frailty and low functional status, and that there may not be a chemotherapy option that she can tolerate, however he will weigh this along with consideration of immunotherapy once he reads the pathology report. This RELIEF MAP MODELER will then f/u with the patient to assess for palliative care focused needs, as well as goals for moving forward. We are checking for pathology results daily, however they may not be in before early next week.
--- NOTE | 2019-02-06 09:51 | OT.IP.TRT ---
Current Diagnoses Malignant neoplasm of unspecified kidney, except renal pelvis (02/03/19) Anemia, unspecified (02/03/19) Unspecified severe protein-calorie malnutrition (02/03/19) Unspecified protein-calorie malnutrition (02/03/19) Dehydration (02/03/19) Hypo-osmolality and hyponatremia (02/03/19) Hypokalemia (02/03/19) Hypotension, unspecified (02/03/19) Weakness (02/03/19) Syncope and collapse (02/03/19) Occupational Therapy Treatment Note M2 OT-IP Current Condition Start: 02/03/19 16:07 Freq: Status: Active Protocol: Document 02/04/19 14:44 PJM (Rec: 02/04/19 15:32 PJM [email or web address]) Occupational Therapy Current Condition Current Condition Evaluation Date 02/04/19 Treatment Diagnosis decreased self care, mobility, activity anisha w/new dx of renal CA w/mets Diagnosis Onset Date 02/03/19 Post Operative Precautions Other Precautions fall risk M3 OT- IP Subjective and Pain Start: 02/03/19 16:07 Freq: Status: Active Protocol: Document 02/06/19 09:51 PJM (Rec: 02/06/19 10:52 PJM [id number]) OT- Subjective Occupational Therapy Visit Type Type Treatment Note Visit Start Time 09:11 Visit Stop Time 09:51 Total Visit Minutes 41 Notes Pt up in recliner when therapist arrived. Occupational Therapy Visit Comments Patient Comments I don't want a shower or to brush my teeth. I don't have the energy. Patient/Caregiver Goals to go home OT Pain Assessment Pain When Pain Assessed After Treatment Pain Present Pain Present Pain Reported Location Right Lower Abdomen Intensity 5 Scale Used Numeric (1 - 10) Description Aching M4 OT- IP ADL's Start: 02/03/19 16:07 Freq: Status: Active Protocol: Document 02/06/19 09:51 PJM (Rec: 02/06/19 10:52 PJM [id number]) OT ADL-Grooming General Evaluation Grooming Ability Standby Assistance Comments OT Grooming Comments hand washing at sink after using bathroom OT ADL-Oral Care Comments Oral Care Comments pt declined OT ADL-Dressing Comments OT Dressing Comments pt declined to change underwear OT ADL-Toileting General Evaluation Toileting Ability Independent Areas Needing Assistance Manage Clothing Perform Perineal Hygiene Devices Toileting Assistive Devices Grab Bars Raised Toilet Seat OT ADL-Bathing Comments OT Bathing Comments pt declines shower today M5 OT- IP IADL's Start: 02/03/19 16:07 Freq: Status: Active Protocol: Document 02/04/19 14:44 PJM (Rec: 02/04/19 15:32 PJM [email or web address]) OT-Instrumental Activities of Daily Living Deficits IADL Deficits Identified Deficits Home Safety Awareness Awareness of Need for Assistance at Home Good Awareness Ability to Problem Solve Emergency Unable to Problem Solve Situations Medication Management Medication Management Caregiver Provides Supervision Medication Management Comments reports pt has memory deficits Money Management Money Management Caregiver Provides Assistance Money Management Comments manages all finances Meal Preparation Meal Preparation Caregiver Provides Assist Meal Preparation Comments does all meal prep at home Cottage Supervisor Cottage Supervisor Caregiver Provides Assist Cottage Supervisor Comments does all car salesman Driving Driving Caregiver Provides Assist Driving Comments pt does not drive M6 OT- IP Functional Cognition Start: 02/03/19 16:07 Freq: Status: Active Protocol: Document 02/06/19 09:51 PJM (Rec: 02/06/19 10:52 PJ [id number]) Cognitive Factors Limiting Selfcare Function Cognitive Ability Level of Alertness Alert Patient Orientation Name Age Birthday Place Situation Attention Span Ability Capable of Focused Attention Capable of Sustained Attention Ability to Follow Commands Able to Follow One Step Commands Memory Description Immediate Impaired Short Term Impaired Working Impaired Problem Solving Ability Needs Assist to Identify Solutions Executive Function Ability Unable to Filter Distractions Unable to Make Plans Unable to Organize Plans Unable to Remember Details Abstract Thinking Ability Unable to Draw Logical Conclusions Cognitive Tests SLUMS Pt scored 21/30 (norm is 27/30). Pt had difficulty with immediate, short term and working memory tasks, decreased mental math skills, decreased word generation. She recalls 2/5 words after 5 min delay and 3/4 facts about short paragraph read to her. Pt has significantly slowed speed of processing. Cognitive Comments Cognitive Assessment Comments Pt initiating more conversation today. M7 OT- IP Mobility and Balance Start: 02/03/19 16:07 Freq: Status: Active Protocol: Document 02/06/19 09:51 PJM (Rec: 02/06/19 10:52 PJM [id number]) OT-Transfer Assessment Sit to and From Stand Sit to and from Stand Minimal Assistance 1 Person Assistance Use of Upper Extremities Transfers Transfer Ability Standby Assistance Moderate Assistance 1 Person Assistance Technique Transfer Destination Chair Toilet Transfer Technique Stand Step Pivot Devices Transfer Assistive Devices Gait Belt Front Wheeled Walker Comments Mobility Comments Pt has difficulty motor planning hand placement and body mechanics for sit to stand requiring min to mod assist for sit to stand depending on seat height. OT- Gait Assessment Gait Gait Assistance Required: Contact Guard Assist Distance (Feet) 20 Assistive Devices Assistive Device Gait Belt Front Wheeled Walker OT- Balance Assessment Sitting Balance and Reactions Static Sitting Balance Ability Good Standing Balance and Reactions Static Standing Balance Ability Good t M9 OT- IP Assessment and Plan Start: 02/03/19 16:07 Freq: Status: Active Protocol: Document 02/06/19 09:51 PJM (Rec: 02/06/19 10:52 PJM [id number]) OT Summary Assessment and Plan Summary Progress Towards Goals Slow Progress due to Medical Issues Slow Progress due to Activity Tolerance Assessment Summary Pt declining some self care tasks today due to decreased activity tolerance. Pt has significant cognitive deficits as described above with slow speed of processing and decreased insight. Per Dr Cota , pt may d/c home today if family has equipment in place. Recommend HH services at discharge to increased independence, safety, endurance for self care in home setting. Goals Grooming Goal Standby Assistance Dressing Goal Standby Assistance Toileting Goal Independent Bathing Goal Standby Assistance Grab Bars Hand Held Shower Sprayer Toilet Transfer Goal Standby Assistance Raised Toilet Seat Grab Bars Shower Transfer Goal Contact Guard Assistance Tub Transfer Bench Patient/Caregiver Education Goal Demonstrate Energy Conservation and Pacing Caregiver Independent Assisting Patient Days to Meet Goals 3 Frequency of Treatment Frequency Of Treatment Once a Day Treatment Plan OT Treatment Plan ADL Training Functional Cognition Training Functional Mobility Patient/Family Education Discharge Planning Discharge Recommendations OT Discharge Recommendations Home with 07/05 Assist Other Discharge Recommendations services Home Equipment Needs transfer tub bench, bedside commode, states he can obtain hospital bed from a friend, grab bars by tub and toilet
--- NOTE | 2019-02-06 10:39 | PT.IPTN ---
Current Diagnoses Malignant neoplasm of unspecified kidney, except renal pelvis (02/03/19) Anemia, unspecified (02/03/19) Unspecified severe protein-calorie malnutrition (02/03/19) Unspecified protein-calorie malnutrition (02/03/19) Dehydration (02/03/19) Hypo-osmolality and hyponatremia (02/03/19) Hypokalemia (02/03/19) Hypotension, unspecified (02/03/19) Weakness (02/03/19) Syncope and collapse (02/03/19) Physical Therapy Treatment Note M2 PT-IP Current Condition Start: 02/03/19 15:57 Freq: NEEDED Status: Active Protocol: Document 02/03/19 14:00 HH (Rec: 02/03/19 16:22 HH [email or web address]) Physical Therapy Current Condition Current Condition Evaluation Date 02/03/19 Treatment Diagnosis Syncope, frequent falls, impaired gait and activity tolerance Onset Date 02/03/19 Weight Bearing Status Weight Bearing Status Weight Bear as Tolerated M3 PT-IP Subjective Start: 02/03/19 15:57 Freq: NEEDED Status: Active Protocol: Document 02/06/19 10:34 SA (Rec: 02/06/19 10:38 SA [email or web address]) Subjective Physical Therapy Visit Type Type Treatment Note Visit Start Time 10:02 Visit Stop Time 10:27 Total Visit Minutes 25 Notes Per RN report BP 108/64 this AM. Number of LOG PEELER Visits 1 Physical Therapy Visit Comments Patient Comments Pt in chair, agreeable to PT. Therapy Pain Assessment Pain When Pain Assessed At Rest Pain Present Pain Present Pain Reported Location Right Lower Abdomen Intensity 2 Scale Used Numeric (1 - 10) Pain Management Techniques Modification of Treatment Re-positioning Timing of Activity with Medications M4 PT-IP Mobility and Gait Start: 02/03/19 15:57 Freq: NEEDED Status: Active Protocol: Document 02/06/19 10:34 SA (Rec: 02/06/19 10:38 SA [email or web address]) PT-Transfer Assessment Sit to and From Stand Sit to and from Stand Contact Guard Assistance Minimal Assistance 1 Person Assistance Equipment Transfer Assistive Device Gait Belt Front Wheeled Walker Orthotic/Prosthetic Devices or Brace: No Transfers Transfer Destination Chair Toilet Transfer Technique Stand Step Pivot Transfer Ability Level of Assist Contact Guard Assistance 1 Person Assistance Comments Mobility Comments Pt slow and gaurded with movements, cues for upright posture and safety. Repeated sit to stands with cues and CGA-Min A. Gait Assessment Gait Gait Assistance Required: Contact Guard Assist Distance (Feet) 90 Able to Maintain Weight Bearing Status Yes During Gait Assistive Devices Assistive Device Gait Belt Front Wheeled Walker Orthotic/Prosthetic Devices or Brace: No Gait Deviations General Gait Pattern Decreased Stride Length Decreased Feet Clearance Factors Limiting Gait Function Factors Limiting Gait Function Decreased Activity Tolerance Poor Safety Awareness Respiratory Distress Comments Gait Comments Gait training in room and halls with FWW and CGA, slow pace cues for safety. M5 PT-IP Objective Assessments Start: 02/03/19 15:57 Freq: NEEDED Status: Active Protocol: Document 02/03/19 14:00 HH (Rec: 02/03/19 16:22 HH [email or web address]) Orientation Orientation/Cognition Level of Alertness Alert Orientation Name Age Birthday Month Date Year Day of Week Place Situation Language Function Ability No Deficits Noted Safety Awareness Understands Safety Issues Memory Description No Deficits Noted Gross Range of Motion Upper Extremity ROM Assessment Within Functional Limits Lower Extremity ROM Assessment Within Functional Limits Strength Upper Extremity Strength Assessment Bilaterally Impaired Lower Extremity Strength Assessment Bilaterally Impaired Comments Strength Comments B UE and LEs are 3+/5 grossly Coordination Assessment Gross Coordination Gross Coordination WNL Assessment Finger to Nose Test Normal Performance Pronation/Supination Test Normal Performance Sensation Assessment Sensation Gross Sensation WNL Light Touch Intact Proprioception (Position) Intact Muscle Tone Muscle Tone WNL Yes M6 PT-IP Treatment Start: 02/03/19 15:57 Freq: NEEDED Status: Active Protocol: Document 02/06/19 10:34 SA (Rec: 02/06/19 10:38 SA [email or web address]) Physical Therapy Treatment Education Education Provided Precautions Weight Bearing Status Post-Op Packet Safety M7 PT-IP Assessment and Plan Start: 02/03/19 15:57 Freq: NEEDED Status: Active Protocol: Document 02/06/19 10:34 SA (Rec: 02/06/19 10:38 SA [email or web address]) PT Summary Assessment and Plan Potential Rehabilitation Potential Good Status of Condition at Evaluation Stable Summary Impairments Strength Balance Bed Mobility Transfers Gait Activity Tolerance Assessment Summary Pt with very flat affect and rapid fatigue with mobility, cues for pacing and safety. Frequency of Treatment Frequency Of Treatment Once a Day Treatment Plan Physical Therapy Treatment Plan Bed Mobility Training Transfer Training Gait Training Therapeutic Exercise Balance Retraining Post Op Education Discharge Planning Hot or Cold Pack Neuromuscular Re-ed Other Recommendations and Next Treatment bed mob, transfer and gait Focus training as anisha with LRAD climb stairs if possible Recommendations To Nursing Amount of Assist Needed 1 Person Assist Discharge Recommendations PT Discharge Recommendations Home with Assistance Home Health SNF Rehab
--- NOTE | 2019-02-06 12:39 | P.PN_ITS ---
Subjective Date Patient Seen: 02/06/19 Interval history: Patient is a 68-year-old female who was admitted to the [facility] for syncope, dehydration, hypotension and significant weight loss was found to have widely metastatic carcinoma. She underwent biopsy of the left supraclavicular node. The preliminary results suggest poorly differentiated carcinoma. Immuno chemistries will be obtained and final results should be available tomorrow. The patient was seen by Dr. Melissa valencia. He is awaiting final pathology results before making recommendations about treatment options versus palliation. She is eating here in the hospital. She has no complaints. She is fairly withdrawn. Plans are underway for her to return home. 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 Patient was anemic and underwent transfusion yesterday. She tolerated this without difficulty. Exam Vital Signs (past 8 hours): - 02/06/19 08:10 02/06/19 11:40 Temperature 97.6 F 97.0 F L Pulse Rate 77 79 Respiratory Rate 18 18 Blood Pressure 108/64 105/65 Pulse Oximetry 96 100 Oxygen Delivery Method Room Air Oxygen Flow Rate 0 Narrative Exam Narrative: Ill appearing female very wasted and cachectic Lungs: Decreased breath sounds but clear Cardiac exam: Regular rate and rhythm normal S1-S2 with a 2/6 systolic ejection Abdomen: Soft mildly tender in the right upper quadrant Extremities: No edema Objective Labs Result Diagrams: 02/06/19 05:24 02/06/19 05:24 Labs: Laboratory Results - last 24 hr 02/05/19 02/06/19 02/06/19 13:47 05:24 05:24 WBC 7.5 RBC 4.19 Hgb 11.1 L Hct 33.3 L MCV 79.5 L MCH 26.4 MCHC 33.3 RDW 17.3 H Plt Count 232 Neut % (Auto) 80.4 H Lymph % (Auto) 10.4 L Custer % (Auto) 7.3 Eos % (Auto) 1.6 L Baso % (Auto) 0.3 Neut # (Auto) 6100 Lymph # (Auto) 800 L Custer # (Auto) 500 Eos # (Auto) 100 Baso # (Auto) 0 Sodium 127 L Potassium 3.3 L Chloride 98 Carbon Dioxide 23 BUN 13 Creatinine 0.70 Estimated GFR > 60.0 BUN/Creatinine Ratio 18.6 Glucose 84 Calcium 7.4 L Total Bilirubin 0.7 AST 16 ALT 8 L Alkaline Phosphatase 110 Total Protein 5.5 L Albumin 2.2 L Globulin 3.3 Albumin/Globulin Ratio 0.7 L Blood Type B Positive Antibody Screen Negative Crossmatch See Detail Assessment & Plan (1) Metastatic carcinoma: Problem details: 68-year-old female admitted to the hospital with significant cachexia found to have metastatic poorly differentiated carcinoma. CT findings initially suggested probable renal cell carcinoma. However in conversation with the pathologist today special stains will revealed the origin of the cancer. This was present on admission. Once the pathology has been identified, Dr. Henderson from Oncology can outlined treatment options for the patient. We anticipate the immuno chemistry studies will be available tomorrow. Current visit: Yes Status: Acute (2) Hyponatremia: Problem details: Hyponatremia,, present on admission likely related to free water as well Will continue to monitor Current visit: Yes Status: Acute (3) Anemia: Problem details: Suspect this is delusional and related to her underlying malignancy, present on admission Patient is iron deficient will start her on 1 dose of IV iron today. Patient received 1 unit of packed RBCs yesterday. Hemoglobin and hematocrit responded nicely Current visit: Yes Status: Acute (4) Hypokalemia: Problem details: Hypokalemia, will replace Current visit: Yes Status: Acute (5) Dehydration: Problem details: Dehydration, present on admission related to poor p.o. intake. Will Hep-Lock IV fluid and continue to encourage oral intake. Current visit: Yes Status: Acute (6) Other severe protein-calorie malnutrition: Problem details: Severe protein calorie malnutrition, present on admission. Will ask for a nutrition consultation. Patient appears to have cachexia secondary to metastatic disease. would consider roly a spot will defer until oncology evaluation. Current visit: Yes Status: Acute (7) Malnutrition: Problem details: Will add Ensure to her meals Qualifiers: Malnutrition type: Protein-calorie malnutrition severity: Current visit: Yes Status: Acute (8) Syncope: Problem details: Syncope, present on admission, likely related to dehydration. No further syncope at this time. Will continue with PT and OT evaluation. Qualifiers: Encounter type: Syncope type: Current visit: Yes Status: Acute Assessment & Plan narrative: Anticipate discharge home tomorrow once her can arrange for equipment and we will schedule home health for her as well.
--- NOTE | 2019-02-06 12:52 | CM.DPC ---
DCP: continued: Case discussed in Team Rounds. Dr. Cota noted pt was approaching readiness for d/c, said the pathology report had come back and that Dr. Henderson would be following up with pt in the OUTPT setting. Met then with pt and her daughter Melissa Pitt/[place] Pierre: cell; [phone]. 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 He has made arrangements to quit after his last shift tonight and plans to be at the hospital tomorrow morning. Melissa says some equipment is already in place at the house and a friend has equipment including a hospital bed which he is passing on to pt and her to use. Both pt and Melissa confirm she will be fine to go home with the equipment to come later. Discussed PCP: pt was established with [facility]/Dr. Menon apparently several years ago, is no longer active with the clinic. Melissa says her dad is looking into this to get her set up again with someone. For now, they are focusing on oncology plan. Did put a call into oncology MARTIN Wray to see if Dr. Henderson would be willing to follow for HH. Dr. Cota is updated re this and has signed Face/Face in case of need. MARTIN Wray has placed her note as per discussion yesterday and will be followingl up with pt and her family for options going forward as her dx and tx plan become more defined in the OUTPT setting. Will check in tomorrow and follow.
--- NOTE | 2019-02-06 15:34 | PC.NURSE ---
Day Shift- Per conversation with Dr. Cota, Okay to leave both PIV to Right and Left upper arm in if asymptomatic and flushes well. Both PIV flush well with NS. This insurance underwriter sales used YOLA PIV to infuse Potassium Chloride PB infusion without difficulty. For lunch pt had 4 small bites of BLT sandwich and 1/2 bottle of chocolate ensure.
[2019-02-07 00:20] VITALS: O2SAT 96
[2019-02-07 00:37] VITALS: BP 103/59
[2019-02-07 05:00] VITALS: BP 105/65; PULSE 77; RESP 18; TEMP 36.6; O2SAT 97
[2019-02-07 07:36] VITALS: BP 104/57; PULSE 72; RESP 14; TEMP 36.3; O2SAT 96
[2019-02-07] MEDS: ACETAMINOPHEN 325 MG TABLET 650 MG PO (08:41)
--- NOTE | 2019-02-07 09:24 | PT.IPTN ---
Current Diagnoses Malignant neoplasm of unspecified kidney, except renal pelvis (02/03/19) Secondary malignant neoplasm of unspecified site (02/03/19) Anemia, unspecified (02/03/19) Unspecified severe protein-calorie malnutrition (02/03/19) Unspecified protein-calorie malnutrition (02/03/19) Dehydration (02/03/19) Hypo-osmolality and hyponatremia (02/03/19) Hypokalemia (02/03/19) Hypotension, unspecified (02/03/19) Weakness (02/03/19) Syncope and collapse (02/03/19) Physical Therapy Treatment Note M2 PT-IP Current Condition Start: 02/03/19 15:57 Freq: NEEDED Status: Active Protocol: Document 02/03/19 14:00 HH (Rec: 02/03/19 16:22 HH [email or web address]) Physical Therapy Current Condition Current Condition Evaluation Date 02/03/19 Treatment Diagnosis Syncope, frequent falls, impaired gait and activity tolerance Onset Date 02/03/19 Weight Bearing Status Weight Bearing Status Weight Bear as Tolerated M3 PT-IP Subjective Start: 02/03/19 15:57 Freq: NEEDED Status: Active Protocol: Document 02/07/19 09:17 LJ (Rec: 02/07/19 09:24 LJ [email or web address]) Subjective Physical Therapy Visit Type Type Treatment Note Notes Pts in room with pt who is sitting in chair. Pt states she does not want to get up now. Complaining about sore on buttock. In speaking with there is a ground level bedroom and bathroom which pt will be utilizing once she is home. As of now there is no hospital bed, however states a friend has one available. The have a walker at home for ambulating around the house. M4 PT-IP Mobility and Gait Start: 02/03/19 15:57 Freq: NEEDED Status: Active Protocol: Document 02/06/19 10:34 SA (Rec: 02/06/19 10:38 SA [email or web address]) PT-Transfer Assessment Sit to and From Stand Sit to and from Stand Contact Guard Assistance Minimal Assistance 1 Person Assistance Equipment Transfer Assistive Device Gait Belt Front Wheeled Walker Orthotic/Prosthetic Devices or Brace: No Transfers Transfer Destination Chair Toilet Transfer Technique Stand Step Pivot Transfer Ability Level of Assist Contact Guard Assistance 1 Person Assistance Comments Mobility Comments Pt slow and gaurded with movements, cues for upright posture and safety. Repeated sit to stands with cues and CGA-Min A. Gait Assessment Gait Gait Assistance Required: Contact Guard Assist Distance (Feet) 90 Able to Maintain Weight Bearing Status Yes During Gait Assistive Devices Assistive Device Gait Belt Front Wheeled Walker Orthotic/Prosthetic Devices or Brace: No Gait Deviations General Gait Pattern Decreased Stride Length Decreased Feet Clearance Factors Limiting Gait Function Factors Limiting Gait Function Decreased Activity Tolerance Poor Safety Awareness Respiratory Distress Comments Gait Comments Gait training in room and halls with FWW and CGA, slow pace cues for safety. M5 PT-IP Objective Assessments Start: 02/03/19 15:57 Freq: NEEDED Status: Active Protocol: Document 02/03/19 14:00 (Rec: 02/03/19 16:22 [email or web address]) Orientation Orientation/Cognition Level of Alertness Alert Orientation Name Age Birthday Month Date Year Day of Week Place Situation Language Function Ability No Deficits Noted Safety Awareness Understands Safety Issues Memory Description No Deficits Noted Gross Range of Motion Upper Extremity ROM Assessment Within Functional Limits Lower Extremity ROM Assessment Within Functional Limits Strength Upper Extremity Strength Assessment Bilaterally Impaired Lower Extremity Strength Assessment Bilaterally Impaired Comments Strength Comments B UE and LEs are 3+/5 grossly Coordination Assessment Gross Coordination Gross Coordination WNL Assessment Finger to Nose Test Normal Performance Pronation/Supination Test Normal Performance Sensation Assessment Sensation Gross Sensation WNL Light Touch Intact Proprioception (Position) Intact Muscle Tone Muscle Tone WNL Yes M6 PT-IP Treatment Start: 02/03/19 15:57 Freq: NEEDED Status: Active Protocol: Document 02/06/19 10:34 SA (Rec: 02/06/19 10:38 SA [email or web address]) Physical Therapy Treatment Education Education Provided Precautions Weight Bearing Status Post-Op Packet Safety M7 PT-IP Assessment and Plan Start: 02/03/19 15:57 Freq: NEEDED Status: Active Protocol: Document 02/06/19 10:34 SA (Rec: 02/06/19 10:38 SA [email or web address]) PT Summary Assessment and Plan Potential Rehabilitation Potential Good Status of Condition at Evaluation Stable Summary Impairments Strength Balance Bed Mobility Transfers Gait Activity Tolerance Assessment Summary Pt with very flat affect and rapid fatigue with mobility, cues for pacing and safety. Frequency of Treatment Frequency Of Treatment Once a Day Treatment Plan Physical Therapy Treatment Plan Bed Mobility Training Transfer Training Gait Training Therapeutic Exercise Balance Retraining Post Op Education Discharge Planning Hot or Cold Pack Neuromuscular Re-ed Other Recommendations and Next Treatment bed mob, transfer and gait Focus training as anisha with LRAD climb stairs if possible Recommendations To Nursing Amount of Assist Needed 1 Person Assist Discharge Recommendations PT Discharge Recommendations Home with Assistance Home Health SNF Rehab
[2019-02-07 10:44] VITALS: O2SAT 94
--- NOTE | 2019-02-07 11:28 | P.DS_ITS ---
History of Present Illness Date Patient Seen: 02/03/19 Chief complaint: Not eating/passed out Narrative: Written by Trevin ERICKSON: This is a 68-year-old female patient who reports no significant medical history who presents to the ER following a syncopal episode while sitting down with her family at a meal. The patient is a poor historian and family present to provide additional information. Per the ER MD family reported frequent falling with the possibility multiple prior syncopal episodes. Do note the patient has been eating poorly over the last several months. The patient denies antecedent symptoms to her syncope today. She denies fevers or chills, headaches or dizziness has had no chest pain palpitations. She reports chronic shortness of breath, has a wet sounding cough and is a current 1 pack per day smoker for 50+ years. Patient denies nausea vomiting, heartburn or reflux though she tells me her liver and ovary hurts. She reports not having an appetite and weight loss for a few months with alternating constipation and diarrhea. The patient has had no recent medical care and family informed the ER physician she is seen a medical provider in 8-10 years. She does have a family history of cancer. In the ER the patient has low temperature at 96.1?, heart rate 94, blood pressure of 96/62, respirations of 15 saturating at 100% on room air. She is noted to be very cachectic with a BMI of 13.6. Chest x-ray is obtained which finds no acute cardiopulmonary processes. On CBC she has microcytic hypochromic anemia with a mildly elevated white cell count at 11.9 and adequate platelets at 305. On chemistry sodium is 132 and potassium is 5.1, her BUN is 20 with creatinine of 13 with an EGFR of 40.6. Her blood sugar is 120 and albumin is 3.1 and has an elevated TSH at 6.14. She has lactate of 2.1, troponin is negative at less than 0.012 with an elevated CK at 167 a negative CK MB and low index 1.2. On urinalysis she has casts with sediment and urine is positive for blood protein and few bacteria and trace leukocyte esterase and negative for ketones and nitrates. Urine is sent for culture. Discharge Providers Date of admission: 02/03/19 09:35 Discharge Date: 02/07/19 Primary care physician: Jose L Menon MD Consults: 02/02/19 20:08 Consult to Dietitian, Adult Routine Comment: Reason For Exam: severe protein malnutrition, BMI 13.6 02/02/19 20:09 Consult to Discharge Planning Routine Comment: Consult to Retail Financial Analyst Routine Comment: Severe malnutrition 02/02/19 23:37 Consult to Physical Therapy Evaluate & Treat Comment: Frequent falls, severe protein malnutrition, weak Physician Instructions: Evaluate and Treat 02/02/19 23:38 Consult to Hospice Referral Routine Comment: Consult to Occupational Therapy Evaluate & Treat Comment: Frequent falls, severe protein malnutrition, weak Physician Instructions: Evaluate and treat 02/03/19 17:06 Consult to Dietitian, Adult Routine Comment: Reason For Exam: severe protein calorie malnutrition Discharge provider: Jacquelyn Marvin DO Summary Discharge Diagnosis: 1. 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 Active. 2. Acute syncope, present on admission. Resolved. 3. Hyponatremia with dehydration, acuity unclear, present on admission. Stable. 4. Hypokalemia, acuity unclear, present on admission. Resolved. 5. Microcytic anemia, acuity unclear, present on admission. Active. 6. Severe protein calorie malnutrition, secondary to underlying malignancy, chronic, present on admission. Hospital Course: Cali White is a 68-year-old female with a past medical history significant for current tobacco smoker who presented to the ED following a syncopal episode while sitting down with her family at a meal. 1. 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 Active. -Patient presented after multiple syncopal episodes while at rest and sitting down. Patient is significantly cachectic and was found to have metastatic poorly differentiated carcinoma (massive left renal cell carcinoma which obstructs the left kidney with marked hydronephrosis, large mediastinal metastatic lesion, right pulmonary metastatic lesion, two very large left adrenal metastatic lesions, and massive left para-aortic metastatic adenopathy deviating the aorta to the right). -CT findings initially suggested probable renal cell carcinoma. However, the pathologist preliminarily reported poorly differentiated metastatic carcinoma of unclear etiology and sent special immunohistochemistry stains to determine the origin of the cancer which are pending and should result any day. Once the pathology has been identified, Dr. Henderson from Oncology plans to have patient follow up outpatient and outline any treatment options for the patient. 2. Acute syncope, present on admission. Resolved. -Secondary to dehydration. -No further syncopal episodes during her hospitalization. -Continued PT and OT evaluation and treatment and recommended home health if pursuing treatment of metastatic disease. 3. Hyponatremia with dehydration, acuity unclear, present on admission. Stable. -Related to poor p.o. intake, protein calorie malnutrition, and metastatic lung dz. Continued to encourage oral intake. 4. Hypokalemia, acuity unclear, present on admission. Resolved. -Likely secondary to poor p.o. intake, protein calorie malnutrition, and diarrhea. -Initial potassium 2.9. Repleted with potassium chloride 40 mEq IV x2. Continued to monitor and replete as needed. 5. Microcytic anemia, acuity unclear, present on admission. Active. -Suspect this is partly dilutional but also related to her underlying mal ignancy. -Patient is iron deficient will start her on 1 dose of IV iron today. -Patient received 1 unit PRBC with appropriate increase in H&H. -Hemoglobin and hematocrit stable. No overt signs of bleeding. Continued to monitor closely. 6. Severe protein calorie malnutrition, secondary to underlying malignancy, chronic, present on admission. -Ordered nutrition consultation and we appreciate their time and recs. Patient has cachexia secondary to metastatic disease. -Could consider megestrol and will defer until oncology evaluation. -Added supplementation with Ensure to her meals. Status at Discharge Functional status at discharge: uses cane/walker Overall status at discharge: patient is not back to baseline Exam Vital Signs (past 8 hours): - 02/07/19 05:00 02/07/19 07:36 02/07/19 10:44 Temperature 97.8 F 97.4 F L Pulse Rate 77 72 Respiratory Rate 18 14 Blood Pressure 105/65 104/57 L Pulse Oximetry 97 96 94 Oxygen Delivery Method Room Air Oxygen Flow Rate 0 Narrative Exam Narrative: General: Older female sitting in bedside chair and in no acute distress, appears chronically ill, severely emaciated and cachectic, appears older than stated age, flat affect but appropriately interactive. HEENT: Normocephalic, atraumatic. External ears without defect. Pupils equal, round, and reactive to light. Anicteric sclerae, moist conjunctivae, and no lid lag. Neck: Supple with full range of motion. Prominent clavicle with sunken recesses. No palpable lymphadenopathy. Cardiovascular: Regular rate and rhythm without murmurs, rubs, or gallops appreciated Pulmonary: Diminished throughout but appears to be clear to auscultation bilaterally without crackles, wheezes, or rhonchi. Normal respiratory effort with no use of accessory muscles. Abdomen: Soft, scaphoid, mild tenderness to palpation in lower right abdomen, nondistended. No hepatosplenomegaly or masses appreciated. Extremities: No clubbing, cyanosis, or edema. Skin: Normal temperature, poor turgor, and normal texture; no rash, ulcers, or s ubcutaneous nodules appreciated. Neurological: Cranial nerves grossly intact. Psychiatric: Depressed mood and flat affect. Alert and appears to be oriented to person, place, and time. Objective Labs Result Diagrams: 02/06/19 05:24 02/06/19 05:24 Discharge Plan Discharge Plan Patient Disposition: Home Health Service Transfer to: Home Health, Other Discharge comment: You are being discharged home with home health. Please follow-up with Dr. Henderson at your scheduled appointment to follow up the biopsy results and discuss potential treatment if possible for your cancer versus hospice. Dr. Henderson will have to take over your home health orders once es tablished. Discharge Med Rec/Prescriptions Prescriptions: New acetaminophen 325 mg Tablet 650 mg PO Q6HR PRN (Reason: As Needed For Fever/Mild Pain) Qty: 30 RF: 0 ondansetron 4 mg Tablet,Disintegrating 4 mg PO Q8HR PRN (Reason: Nausea And Vomiting) Qty: 30 RF: 0 Continued naproxen sodium [Aleve] 220 MG tablet 440 mg PO BIDCC Qty: 0 RF: 0 Follow up/Referrals: Jose L Menon MD [Primary Care Provider] - 1 Week (office is closed on sunday please call on sunday for the follow up appointment on Dr. Henderson at [phone].) Blayne Henderson MD [Physician] - 1 Week Provider Discharge Instructions Diet: Diet as Tolerated Activity: Activity as tolerated with a walker Discharge Data Primary Care Provider: Jose L Menon Attending Provider: Vani Cota Admit Date/Time: 02/03/19 09:35 Discharges patient from system. Discharge Date/Time: 02/07/19 13:15
--- NOTE | 2019-02-07 11:54 | CM.DPC ---
Addendum entered by Kadie De Souza LPN 02/07/19 12:20: Have updated Dr. Marvin now re all of this. Pt and her express eagerness to go home today. Adeel says he has alerted family members who will be coming to visit for extended periods of time with intent to help the family with needs going forward. Adeel says they do have specific cancer insurance and a specific diagnosis from Dr. Henderson will be very helpful in their ability to access this benefit. Have asked [facility] to send face sheet, oncology note and dc summary to [facility]. Will also alert onc aids social worker Kamala so ideally she can assist with getting pt an early appt. with Dr. Henderson and then can coordinate the HH referral if this remains a need. Original Note: DCP: continued: Case discussed in Team Rounds with Dr. Marvin. She stated she planned to d/c pt to home and wanted HHS. Explained the lack of PCP issues as discussed with Dr. Cota yesterday and the response from Dr. Henderson as per onc aids social worker Danah's note. Agreed to see if HH agency would accept hospitalist order and Dr. Henderson followup with HH once pt is able to get an appt. (the office is closed on Sunday's so pt's will need to call Sunday to make this appt...he is aware and agreeable to same.) Have attempted to discuss with Annie GUNDERSON...no answer. Spoke now with Garth Reese : cell:[phone]. She confirms that they cannot accept the case until there is a physician to follow. She says sometimes there is wiggle room re this regulation of pt has seen a PCP within a year but pt's Adeel today confirms that her last PCP was Dr. Menon[facility] and then a change to another doctor at that clinic no longer there and It has been at least 15 years since she was seen by them. Discussed this with RN Ariella Chambers. She is processing the d/c orders, and will discuss this further with Dr. Marvin so she can amend her dc summary if she choses. Adeel confirms she is ready to take pt home today. I thought that the hospital would not let me take her home until I have a hospital bed. I am getting one but she does not need one to be at home.
--- NOTE | 2019-02-07 12:46 | PC.NURSE ---
pt discharged to home with plan to follow up with Dr. Henderson, oncology next week- family will call Sunday am , as office is closed on Sunday- removed iv access and reviewed at length d/c plan - REFERRAL TO HOME HEALTH WHICH WILL BE DETERMINED BY DR. HENDERSON AT HER INITIAL APPT.-DISCHARGED TO HOME
--- NOTE | 2019-02-07 14:03 | CM.DPC ---
DCP Cont: Faxed facesheet, oncology consult note and discharge summary to [facility], Attn: Mary Ann at fax # [phone]. Fax confirmation scanned in. Selin Shepherd, Nirmala Senior Net Web Developer
== END 2019-02-07 13:15 | disposition home health service (06) | DRG 987 ==
LOC: ED 12:19 → AC 17:54
PROVIDERS: Nurse Practitioner Adult Health; Specialist; Admitting Provider Internal Medicine; Emergency Provider Emergency Medicine; PCP Family Medicine; Visit Provider Internal Medicine
DX: C64.2 Malignant neoplasm of left kidney, except renal pelvis (principal); E43 Unspecified severe protein-calorie malnutrition; C78.1 Secondary malignant neoplasm of mediastinum; C78.02 Secondary malignant neoplasm of left lung; R64 Cachexia; Z68.1 Body mass index [BMI] 19.9 or less, adult; C77.8 Secondary and unspecified malignant neoplasm of lymph nodes of multiple regions; C79.72 Secondary malignant neoplasm of left adrenal gland; E86.0 Dehydration; E87.6 Hypokalemia; D63.0 Anemia in neoplastic disease; F17.210 Nicotine dependence, cigarettes, uncomplicated; R55 Syncope and collapse; Z91.81 History of falling; N18.3 Chronic kidney disease, stage 3 (moderate)
CPT/HCPCS: 21550; 36415; 36430; 71045; 71275; 74174; 77012; 80048; 80053; 81001; 82140; 82550; 82553; 82962; 83540; 83550; 83605; 83735; 84132; 84439; 84443; 84484; 85014; 85025; 85610; 85730; 86850; 86900; 86901; 87086; 88305; 88341; 88342; 93005; 94762; 96360; 96361; 97116; 97127; 97162; 97166; 97530; 97535; 99203; 99213; 99232; 99285; 99406; G0378; P9016; J1650; J1756; J3010; J3480; Q9967

== ENCOUNTER → 2019-02-18 09:41 | Outpatient (CLI) | payer MEDICARE, BC, SELFPAY ==
[2019-02-02 18:04] VITALS: BMI 13.6
--- NOTE | 2019-02-18 | DI.RAD.S_ITS ---
PROCEDURE: FL GUIDED PICC PLACEMENT INDICATIONS: Malignant neoplasm of unspecified kidney COMPARISON: None. FINDINGS: PICC was placed by the intravenous therapy team from the left side. Fluoroscopic spot film demonstrates tip of PICC projecting near the cavoatrial junction. IMPRESSION: Tip of left upper extremity PICC projects over the cavoatrial junction. Dictated by: Geoff Tapia M.D. on 02/18/2019 at 10:29 Approved by: Geoff Tapia M.D. on 02/18/2019 at 10:29
== END ==
DX: C64.9 Malignant neoplasm of unspecified kidney, except renal pelvis (principal)
CPT/HCPCS: 36573

== ENCOUNTER → 2019-02-18 15:00 | Oncology outpatient (ONC) | payer MEDICARE, BC, SELFPAY ==
[2019-02-02 18:04] VITALS: BMI 13.6
[2019-02-12 08:59] VITALS: BP 108/60; PULSE 77; RESP 20; TEMP 37; O2SAT 94
--- NOTE | 2019-02-12 13:12 | ONC.PN ---
PN -Subjective Interval history: Diagnosis: Metastatic urothelial carcinoma arising from the left renal pelvis Previous treatment: None History of present illness: The patient is 68-year-old woman who I saw initially in the hospital about a week ago. She has avoided any interaction with the medical system for many years. She developed an episode of syncope and because of that was hospitalized. She was noted to be cachectic and weak. She had marked anemia requiring transfusion. She had a CT scan done that showed massively enlarged left kidney with adenopathy and adrenal lesions. There were probable liver and lung metastasis as well as lauren metastasis in the chest and at the base of the left neck. She had a biopsy of left neck node. Pathology showed urothelial carcinoma. The patient notes that she has been having some pain that she describes is coming from the ovary and the liver. Her appetite has been quite poor and she has had pain with eating. She has been losing weight although she is not able to quantify in amount. She does note some dyspnea on exertion. She really is not sure if the transfusion helped much. She is not having any pain in the chest. Strength and energy level have been low. She is able to walk around her house to the bathroom and back but is not doing much more activity than that. She denies any fevers or chills. Her only medication is Tylenol that she has been using for pain. He really has not been providing adequate relief. Her past medical history is otherwise negative. Social history: She is . She does continue to smoke. - Patient Self-Reported Symptoms SR Constitution: Weight loss/gain SR Skin issues: Dry skin SR Gastrointestinal issues: Poor or no appetite, Change in bowel pattern, Nausea, Diarrhea SR Musculoskeletal issues: Muscle weakness, Difficulty walking Home Medications and Allergies Home Medications Medication Instructions Recorded Confirmed Type naproxen sodium [Aleve] 440 mg PO BIDCC #0 10/05/12 02/12/19 History acetaminophen 650 mg PO Q6HR PRN #30 tab 02/07/19 02/12/19 Rx ondansetron 4 mg PO Q8HR PRN #30 tab 02/07/19 02/12/19 Rx ondansetron 8 mg PO Q8H PRN #30 tab 02/12/19 Rx oxycodone 5 mg PO Q4-6H PRN #40 tab 02/12/19 Rx Allergies Allergy/AdvReac Type Severity Reaction Status Date / Time lidocaine Allergy Unknown Verified 02/06/19 08:36 procaine Allergy Unknown Verified 02/06/19 08:36 Sulfa (Sulfonamide AdvReac Unknown Verified 02/06/19 08:36 Antibiotics) Exam Vital signs: Vital Signs Temp Pulse Resp BP Pulse Ox 02/12/19 08:59 98.6 F 77 20 108/60 94 Intake and Output 02/11/19 02/12/19 02/12/19 23:59 07:59 15:59 Other: Weight 41.6 kg Patient Weight 02/12/19 23:59 Weight 41.6 kg - Constitutional positive thin, positive cachectic Comments: She is in a wheelchair chronically ill-appearing but in no acute distress. - Routine HEENT Exam Head: Present: normocephalic, atraumatic Eye: Present: EOMI, PERRL. Absent: conjunctival icterus, scleral injection ENT: Present: mucous membranes moist, oropharynx clear - Routine Neck Exam Present: supple. Absent: lymphadenopathy, thyromegaly Comments: There is some fullness at the left base of the neck and supraclavicular area. It measures about 2-3 cm in size. - Routine Respiratory Exam Present: Clear to auscultation bilaterally. Absent: rales, wheezes - Routine Cardiovascular Exam Present: RRR, S1, S2. Absent: murmur - Routine Abdominal Exam Present: soft, normoactive bowel sounds, organomegaly. Absent: distended Comments: There is fullness involving the left half of the abdomen. She has some mild tenderness to palpation. - Routine Extremities Exam Present: clubbing. Absent: cyanosis, edema - Routine Back/Spine Exam Back/Spine: Absent: paraspinal tenderness, vertebral tenderness - Routine Skin Exam Present: intact. Absent: petechiae, rash - Routine Neurological Exam Present: alert, oriented X3 - Routine Psychiatric Exam Present: normal affect, normal thought process Results - Imaging Additional studies: Procedures Application of splint (10/05/12) Excision of Left Neck Lymphatic, Percutaneous Approach, Diagnostic (02/03/19) Assessment and Plan (1) Urothelial carcinoma of kidney Current visit: Yes Status: Acute Is a 68-year-old woman with a new diagnosis of urothelial carcinoma involving the left kidney with extensive lauren as well as liver and lung metastasis. She has marginal performance status. I think she probably is a 3 on the ECOG scale. She does have poor nutrition and cachexia. She also has had a marked anemia requiring transfusion. Today we discussed treatment options. One option will be a trial of chemotherapy. I described the regimen of carboplatin and gemcitabine given weekly for 2 weeks with 1 week off. Side effects would include a low risk for alopecia as well as a low risk for nausea and vomiting. There would be higher risk for cytopenias and risk for infection. Fatigue would be very common. Skin rash can be seen. There is possibility for either diarrhea or constipation. I explained that the goal of chemotherapy would be relief of symptoms if she were to get a response as well as prolongation of survival. In clinical trials response rate is on the order of about 50-60%. Given her marginal performance status I would expect her likelihood of response to be lower perhaps 30% or so. There is probably an equally likely chance of stable disease. A again, if the patient does experience response would expect her quality of life to improve. We did also talk about the possibility of immunotherapy. Response rates for transitional cell carcinoma on the order of about 15-20%. Patients who do respond can have deep and long-lasting responses. However, I think that her burden of disease is sufficiently high at this point that if she does elect therapy, it should be the therapy with the highest response rate. For that reason, I think chemotherapy would be a better option for her than first-line immunotherapy. We did also talk about the possibility of supportive care or hospice. Her has been in contact with them previously. The patient and her family are still discussing how they would like to proceed. At this point, the patient is leaning towards trying chemotherapy. With that in mind, we will try and arrange for PICC line placement and make a tentative plan to begin chemotherapy in the next week or 2. If she elects to proceed with supportive care or hospice however, I think that is quite reasonable. I did give her prescription for some oxycodone today to see if that would provide better relief for pain. I did student financial services counselor her to take some laxatives along with that. Greater than 40 minute was spent with the patient and her family today, the majority in counseling.
--- NOTE | 2019-02-12 15:32 | ONC.NAV ---
Description: New Pt Intro Activity: Met with pt, spouse, and 2-sisters to introduce myself as the Pt Jorge/CIVIL DESIGN TECHNICIAN, offer services card, and assess immediate needs. Pt was recently hospitalized after having presented to the ER following several syncopal episodes. During her stay, she was diagnosed with metastatic renal cancer. Pt presents as very frail, cachectic, and requires assistance with care needs. Mentally, pt presents as detached and has not been a great self historian while being hospitalized. Family state that she hasn't been eating well for several months. She continues to smoke approximately a pack per day, and has been drinking approx. 2-wine boxes per week, per family report. Hospice was discussed during her hospitalization, however they are choosing to establish care with Dr. Henderson to determine if there are any oncologic options available to her. CIVIL DESIGN TECHNICIAN assisted both daughters in completing their FMLA forms, then submitted them to their respective employers, per their request. No further immediate needs were identified at this time. Plan: CIVIL DESIGN TECHNICIAN will f/u with pt/family again next week when pt comes in for her first infusion treatment.
--- NOTE | 2019-02-19 10:38 | PC.NURSE ---
Chemo teaching provided to patient and Adeel. Spend 1 hour going over potential side effects, touching on some of the resources that [facility] Campus Safety Officer provides and also flow of clinic and time they can expect to allot for treatment days. Pt appears quite malnourished and weak so discussed nutrition as well. Medication sheets for Gemzar and Carboplatin provided to patient and spouse.
--- NOTE | 2019-02-26 13:57 | ONC.MSW ---
*Sent bereavement card.
== END ==
DX: C65.2 Malignant neoplasm of left renal pelvis (principal); C78.7 Secondary malignant neoplasm of liver and intrahepatic bile duct; C78.00 Secondary malignant neoplasm of unspecified lung; C77.9 Secondary and unspecified malignant neoplasm of lymph node, unspecified
CPT/HCPCS: 99215

== ENCOUNTER 2019-02-18 20:36 | Emergency (ER) | payer MEDICARE, BC, SELFPAY ==
[2019-02-02 18:04] VITALS: BMI 13.6
[2019-02-18] VITALS (14 sets, daily range): BP systolic 80–156; BP diastolic 51–87; PULSE 103–126; RESP 14–32; TEMP 36.8; O2SAT 64–100; BMI 14.3
[2019-02-18] MEDS: ALBUTEROL/IPRATROPIUM 3 ML AMPUL INH (20:52)
--- NOTE | 2019-02-18 20:52 | DI.RAD.S_ITS ---
PROCEDURE: XR CHEST 1V INDICATIONS: shortness of breath TECHNIQUE: One view of the chest was acquired. COMPARISON: [facility], , XR CHEST 1V, 02/02/2019, 12:47. FINDINGS: Surgical changes and devices: The a left PICC is present, the tip of which is projected over the cavoatrial junction. Lungs and pleura: There is a large left pleural effusion which is new when compared with prior CT dated 02/02/19. Consolidation or compressive atelectasis is present in the left midlung. The right lung is clear. A nipple shadow is projected over the right lung base. No right pleural effusion. There are diffuse reticular markings throughout both lungs suggesting underlying fibrosis. Mediastinum: Heart and mediastinum are poorly characterized given large left effusion. Bones and chest wall: No suspicious bony lesions. Overlying soft tissues appear unremarkable. IMPRESSION: 1. Large left pleural effusion and left consolidation or compressive atelectasis. 2. Probable pulmonary fibrosis. Dictated by: Maria Luz Silva M.D. on 02/18/2019 at 21:12 Approved by: Maria Luz Silva M.D. on 02/18/2019 at 21:14
--- NOTE | 2019-02-18 20:52 | DI.CT.S_ITS ---
PROCEDURE: CT ANGIO CHEST PE PROTOCOL INDICATIONS: hypoxia, cancer TECHNIQUE: After the administration of intravenous contrast, 2 mm thick sections acquired from the pulmonary apices to the posterior costophrenic angles. 3-dimensional maximum intensity projection (MIP) coronal and sagittal reformats were then acquired through the thorax. For radiation dose reduction, the following was used: automated exposure control, adjustment of mA and/or kV according to patient size. COMPARISON: [facility], CT, ABDOMEN/PELVIS WITH CONTRAST, 08/10/2009, 14:43. [facility], CT, CT ANGIO CHEST ABDOMEN PELVIS, 02/02/2019, 21:16. FINDINGS: Image quality: Excellent. Pulmonary arteries: Pulmonary arteries demonstrate no intraluminal filling defects to suggest central pulmonary embolism. Lungs and pleura: There is an endotracheal tube with the tip approximately 4.6 cm from the scotty. Fluid density filling defects are demonstrated within the left lower lobe bronchus compatible with mucus with associated complete atelectasis of the left lower lobe. There is heterogeneous enhancement within the left lower lobe suggestive of consolidation or possible mass. There is also partial fluid filling defect within the bronchus intermedius and right lower lobe bronchus. The findings likely represent sequela of aspiration. There are corresponding clustered nodular opacities posteriorly in the right lower and upper lobes which are increased from the prior study. There is also interval near complete consolidation of the left upper lobe with air bronchograms. There is a moderate to large left pleural effusion. Within the right lung, there is a poor base soft tissue nodule medially in the right upper lobe measuring up to 1.5 cm which is increased from 1.3 cm previously likely representing metastatic disease. A small nodule within the right upper lobe on series 6 image 20 measuring up to 0.6 cm is new from the prior study and may represent inflammatory/infectious change or metastatic disease. Mediastinum: Heart size is normal, without pericardial effusion. Thoracic aorta is normal in caliber and enhancement. There is an enlarged heterogeneous left mediastinal lymph node measuring approximately 4.2 x 3.0 cm increased from the prior study and consistent with metastatic disease. There is an enlarged para-aortic lymph node within the anterior mediastinum measuring up to 1.9 x 1.7 cm. No hiatal hernia. Bones and chest wall: No suspicious bony lesions. Ribs and thoracic spine appear intact throughout. Thyroid gland demonstrates no discrete nodules. There is a large heterogeneous left supraclavicular mass measuring up to 4.5 x 4.1 cm in transverse dimension consistent with a lauren metastasis. No evidence of axillary adenopathy by size criteria. Abdomen: Visualized upper abdomen redemonstrates severe left hydronephrosis with partial visualization of the heterogeneous left renal mass seen on the recent abdominal CT. Bilateral adrenal masses are all also redemonstrated measuring up to approximately 5.4 x 2.5 cm on the right, increased from the prior study. There are enlarged retroperitoneal lymph nodes partially visualized. There is heterogeneous enhancement of the liver redemonstrated. In the right hepatic dome primarily in segment 8, there is a lobulated hypervascular enhancing lesion measuring up to approximately 1.8 cm which is nonspecific but suspicious for metastatic disease. There are focal stenoses within the proximal celiac and superior mesenteric arteries. IMPRESSION: 1. No evidence of pulmonary embolism. 2. Fluid opacification of the left lower lobe bronchus with associated complete atelectasis of the left lower lobe. Heterogeneous appearance of the left lower lobe suggests underlying consolidation or possible mass. Fluid is also demonstrated in the right lower lobe bronchus with patchy clustered opacities in the dependent portions of the right lung. The findings likely represent sequelae of aspiration. 3. Near-complete consolidation of the left upper lobe likely representing pneumonia. 4. Findings consistent with metastatic disease including left supraclavicular and mediastinal lymphadenopathy, right upper lobe nodule, bilateral adrenal masses, and retroperitoneal lymphadenopathy. There is evidence of progression compared to the prior study. 5. Severe left hydronephrosis partially visualized in the left kidney with partial visualization of the left renal mass described on the recent study. 6. Indeterminate hypervascular lesion in the right hepatic dome is suspicious for metastatic disease. Concordant with preliminary interpretation. Dictated by: Burke Adams M.D. on 02/19/2019 at 8:00 Approved by: Burke Adams M.D. on 02/19/2019 at 8:33
[2019-02-18] MEDS: SODIUM CHLORIDE 0.9% 1,000 ML 1000 ML IV (21:15)
[2019-02-18] MEDS: ETOMIDATE 2 MG/ML VIAL 10 MG IV (21:15)
--- NOTE | 2019-02-18 21:15 | PC.NURSE ---
PT states increasing SOB, reports onset at about 1910. 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 Pt appears cyanotic with tachypnea upon arrival R 30, O2 on RA 64%. Dr. Lange at bedside.
[2019-02-18] MEDS: SUCCINYLCHOLINE 100 MG/5 ML INJ 50 MG IV (21:17)
[2019-02-18] MEDS: methylPREDNISolone 125 MG/2 ML VIAL IV (21:20)
--- NOTE | 2019-02-18 21:21 | DI.RAD.S_ITS ---
PROCEDURE: XR CHEST 1V INDICATIONS: intubated TECHNIQUE: One view of the chest was acquired. COMPARISON: None. FINDINGS: Surgical changes and devices: The patient has been intubated and the endotracheal tube is approximately 5.8 cm above the scotty. Lungs and pleura: There is a large left pleural effusion and consolidation or compressive atelectasis of the aerated left lung. The right lung is clear. Mediastinum: Mediastinal contours appear normal. Heart size is normal. Bones and chest wall: No suspicious bony lesions. Overlying soft tissues appear unremarkable. IMPRESSION: Status post intubation. Large left pleural effusion as before. Dictated by: Maria Luz Silva M.D. on 02/18/2019 at 21:33 Approved by: Maria Luz Silva M.D. on 02/18/2019 at 21:34
[2019-02-18] MEDS: PROPOFOL 1,000 MG/100 ML VIAL 1.14 MG IV (21:30)
[2019-02-18] MEDS: LORazepam 2 MG/ML SYRINGE 1 MG IV (21:44)
--- NOTE | 2019-02-18 22:19 | ED_ITS ---
HPI - SOB/Dyspnea General Chief Complaint: Shortness of Breath/Dyspnea Stated Complaint: DIFFICULTY BREATHING Time Seen by Provider: 02/18/19 20:41 Source: patient, family and old records reviewed Mode of arrival: wheelchair History of Present Illness Patient is a 69-year-old female who appears cachectic and ill is presenting with shortness of breath. As she is noted to have an oxygen level of 63% a good waveform on the monitor. She is a new diagnosis of metastatic urethral carcinoma the left kidney with mets to liver and lung. She has not yet started treatment she was just seen by Oncology on February 12. She had a PICC line placed today. According to her she started feeling suddenly short of breath suddenly. Unknown if she has had fever. She appears cyanotic and dyspneic and is unable to answer questions and refers to her to answer them for her. We discussed on with patient and code status. stated they discussed it last week and she wanted to be a full code. Discussed intubation with patient and . Patient understood and was agreeable to intubation is also with . MD Complaint: shortness of breath Onset (ago): minute(s) Related Data Home Medications Medication Instructions Recorded Confirmed naproxen sodium [Aleve] 440 mg PO BIDCC #0 10/05/02/12/19 Previous Rx's Medication Instructions Recorded acetaminophen 650 mg PO Q6HR PRN #30 tab 02/07/19 ondansetron 4 mg PO Q8HR PRN #30 tab 02/07/19 ondansetron 8 mg PO Q8H PRN #30 tab 02/12/19 oxycodone 5 mg PO Q4-6H PRN #40 tab 02/12/19 Allergies Allergy/AdvReac Type Severity Reaction Status Date / Time lidocaine Allergy Unknown Verified 02/18/19 20:56 procaine Allergy Unknown Verified 02/18/19 20:56 Sulfa (Sulfonamide AdvReac Unknown Verified 02/18/19 20:56 Antibiotics) Review of Systems Review of Systems ROS Unobtainable: All systems reviewed & are unremarkable except as noted in HPI and below Constitutional Denies chills, Denies fever(s), Denies lethargy and Reports weakness Eyes Denies change in vision, Denies eye discharge, Denies irritation and Denies loss of vision ENT Ears, Nose, Mouth, and Throat: Denies change in voice, Denies neck pain and Denies sore throat Cardiovascular Denies edema Respiratory Reports as per HPI Gastrointestinal Gastrointestinal: Denies abdominal pain, Denies change in bowel habits, Denies diarrhea, Denies nausea and Denies vomiting Genitourinary Denies hematuria, Denies flank pain, Denies urinary incontinence and Denies urinary urgency Musculoskeletal Denies neck pain Integumentary/Breasts Denies pruritus, Denies erythema, Denies rash and Denies wounds Neurologic Denies loss of vision and Reports weakness [facility] Medical History (Updated 02/19/19 @ 01:22 by Karolyn Lange DO) Alcohol abuse (Acute) Benign breast lumps (Acute) Current every day smoker (Acute) Urothelial carcinoma of kidney (Acute) Ovarian cyst, left (Resolved) Surgical History History of breast lump/mass excision (Acute) History of ovarian cystectomy (Acute) Family History Father No significant medical problems Mother Cancer Social History household members: spouse Smoking Status: Current every day smoker Family History Father No significant medical problems Mother Cancer Social History household members: spouse Smoking Status: Current every day smoker Exam Initial Vital Signs Initial Vital Signs: Vital Signs Temperature 98.2 F 02/18/19 20:40 Pulse Rate 110 H 02/18/19 20:40 Respiratory Rate 32 H 02/18/19 20:40 Blood Pressure 117/84 02/18/19 20:40 Pulse Oximetry 64 L 02/18/19 20:40 Gen.: Frail cachectic cyanotic female in acute distress HEENT: Head is atraumatic, EOMI Neck: No JVD Lungs: Decreased breath sounds on left tachypneic Cardiac: Tachycardic regular Abdomen: Soft nontender Extremities, peripheral pulses intact no gross bony deformity Neurologic: A&O x3 moving all extremities Procedures Intubation Time out performed: Yes sedative: Etomidate Mg Given: 10 paralytic: Succinylcholine Mg Given: 50 Laryngoscope: other (glide scope) ET Tube Size: 7.5 ET Tube Uncuffed: Yes Tube Secured Depth (cm): 20 Tube Secured Location: lips Tube Placement Confirmation: Visualized tube passing through cords, Equal breath sounds bilaterally, No breath sounds over epigastrium, Confirmation by capnometry and Chest Xray Patient Tolerated Procedure: Well Intubation Complications: none Course Orders Ordered: ED Orders 02/18/19 20:51 Consult to Respiratory Therapy Evaluate & Treat Blood Culture Stat EKG-12 Lead Stat 02/18/19 20:52 CT angio chest PE protocol Stat XR chest 1V Stat 02/18/19 21:21 XR chest 1V Stat 02/18/19 22:18 B Type Natriuretic Peptide Stat Complete Blood Count AUTO DIFF Stat Comprehensive Metabolic Panel Stat Lactate (Lactic Acid) Stat Magnesium Stat Partial Thromboplastin Time Stat Procalcitonin Stat Prothrombin Time INR Stat Troponin & CK Cardiac Panel Stat Discontinued Medications Albuterol/Ipratropium (Duoneb) 3 ml INH NOW ONE Stop: 02/18/19 20:52 Last Admin: 02/18/19 20:52 Dose: 3 ml Etomidate (Amidate) 10 mg IV NOW ONE Stop: 02/18/19 21:16 Last Admin: 02/18/19 21:15 Dose: 10 mg Propofol (Propofol) 1,000 mg in 100 mls @ 1.14 mls/hr IV TITRATE SEGUNDO; Protocol Last Admin: 02/18/19 21:30 Dose: 5 mcg/kg/min, 1.14 mls/hr Potassium Chloride 60 meq/ (Sodium Chloride) 530 mls @ 88.333 mls/hr IV NOW ONE Stop: 02/19/19 04:51 Last Admin: 02/19/19 00:13 Dose: 88.333 mls/hr Cefepime HCl 1 gm/ Sodium (Chloride) 100 mls @ 200 mls/hr IV NOW ONE Stop: 02/19/19 00:01 Last Infusion: 02/19/19 01:00 Dose: 200 mls/hr Admin: 02/19/19 00:30 Dose: 200 mls/hr Vancomycin HCl 750 mg/ Sodium (Chloride) 250 mls @ 166 mls/hr IV NOW ONE Stop: 02/19/19 02:45 Last Admin: 02/19/19 01:19 Dose: 166 mls/hr Sodium Chloride (Normal Saline 0.9%) 1,000 mls @ 1,000 mls/hr IV BOLUS ONE Stop: 02/18/19 22:14 Last Infusion: 02/19/19 00:00 Dose: 1,000 mls/hr Admin: 02/18/19 21:15 Dose: 1,000 mls/hr Lorazepam (Ativan) 1 mg IV NOW ONE Stop: 02/18/19 21:45 Last Admin: 02/18/19 21:44 Dose: 1 mg Methylprednisolone (Solu-Medrol 125 Mg Vial) 125 mg IV NOW ONE Stop: 02/18/19 20:52 Last Admin: 02/18/19 21:20 Dose: 125 mg Succinylcholine Chloride (Quelicin) 50 mg IV NOW ONE Stop: 02/18/19 21:18 Last Admin: 02/18/19 21:17 Dose: 50 mg Consultations Consultation #1: Dr. Cavanaugh ICU physician at [facility], accepts patient. He has been updated patient's symptoms test results. Agrees with poor prognosis. Time: 00:55 Vital Signs - 8 hr 02/18/19 20:40 02/18/19 21:00 02/18/19 21:15 Temperature 98.2 F Pulse Rate 110 H 120 H 121 H Respiratory Rate 32 H 30 H 31 H Blood Pressure 117/84 Blood Pressure [Right Calf] 120/87 130/83 Pulse Oximetry 64 L 80 L 81 L MDM - SOB/Dyspnea Lab Data Attestation: I reviewed the patient's lab results. Result diagrams: 02/18/19 22:18 02/18/19 22:18 Lab Results 02/18/19 02/18/19 02/18/19 Range/Units 22:18 22:18 22:18 WBC 14.0 H (4.5-11.0) X10^3/uL RBC 4.19 (4.0-5.2) X10^6/uL Hgb 10.7 L (12.0-16.0) g/dL Hct 34.6 L (36-46) % MCV 82.6 (80-100) fL MCH 25.6 L (26-34) PG MCHC 30.9 (30-36) % RDW 18.1 H (11.6-14.8) % Plt Count 457 H (150-400) X10^3/uL Neut % (Auto) 86.9 H (50-75) % Lymph % (Auto) 7.2 L (25-40) % [place] % (Auto) 4.9 (3-14) % Eos % (Auto) 0.4 L (2-4) % Baso % (Auto) 0.6 (0-2) % Neut # (Auto) 32048 H (8067-1071) /uL Lymph # (Auto) 1000 L (2546-1382) /uL [place] # (Auto) 700 (0-900) /uL Eos # (Auto) 0 (0-450) /uL Baso # (Auto) 100 (0-100) /uL PT 13.5 H (10.1-12.7) SECONDS INR 1.2 (0.9-1.3) APTT 33 D (26.4-36.2) SECONDS Sodium 134 L (137-145) mmol/L Potassium 2.3 L* (3.4-5.1) mmol/L Chloride 101 (98-107) mmol/L Carbon Dioxide 26 (22-32) mmol/L BUN 20 H (7-17) mg/dL Creatinine 0.80 (0.52-1.04) mg/dL Estimated GFR > 60.0 (>60) mL/min BUN/Creatinine Ratio 25.0 H (6-22) Glucose 116 H (80-110) mg/dL Lactate (0.7-2.1) mmol/L Calcium 8.0 L (8.4-10.2) mg/dL Magnesium 1.6 (1.6-2.3) mg/dL Total Bilirubin 0.4 (0.2-1.3) mg/dL AST 19 (14-36) IU/L ALT 8 L (9-52) IU/L Alkaline Phosphatase 148 H (38-126) U/L Total Creatine Kinase 60 (30-135) U/L CK-MB (CK-2) TNP CK-MB (CK-2) Rel Index TNP Troponin I < 0.012 (0.01-0.034) ng/mL B-Natriuretic Peptide 163 H (<100) Total Protein 5.9 L (6.3-8.2) g/dL Albumin 2.4 L (3.5-5.0) g/dL Globulin 3.5 (1.7-4.1) g/dL Albumin/Globulin Ratio 0.7 L (1.0-2.8) Procalcitonin (<0.5) ng/mL 02/18/19 02/18/19 Range/Units 22:18 22:18 WBC (4.5-11.0) X10^3/uL RBC (4.0-5.2) X10^6/uL Hgb (12.0-16.0) g/dL Hct (36-46) % MCV (80-100) fL MCH (26-34) PG MCHC (30-36) % RDW (11.6-14.8) % Plt Count (150-400) X10^3/uL Neut % (Auto) (50-75) % Lymph % (Auto) (25-40) % [place] % (Auto) (3-14) % Eos % (Auto) (2-4) % Baso % (Auto) (0-2) % Neut # (Auto) (4824-3422) /uL Lymph # (Auto) (4782-6654) /uL [place] # (Auto) (0-900) /uL Eos # (Auto) (0-450) /uL Baso # (Auto) (0-100) /uL PT (10.1-12.7) SECONDS INR (0.9-1.3) APTT (26.4-36.2) SECONDS Sodium (137-145) mmol/L Potassium (3.4-5.1) mmol/L Chloride (98-107) mmol/L Carbon Dioxide (22-32) mmol/L BUN (7-17) mg/dL Creatinine (0.52-1.04) mg/dL Estimated GFR (>60) mL/min BUN/Creatinine Ratio (6-22) Glucose (80-110) mg/dL Lactate 1.9 (0.7-2.1) mmol/L Calcium (8.4-10.2) mg/dL Magnesium (1.6-2.3) mg/dL Total Bilirubin (0.2-1.3) mg/dL AST (14-36) IU/L ALT (9-52) IU/L Alkaline Phosphatase (38-126) U/L Total Creatine Kinase (30-135) U/L CK-MB (CK-2) CK-MB (CK-2) Rel Index Troponin I (0.01-0.034) ng/mL B-Natriuretic Peptide (<100) Total Protein (6.3-8.2) g/dL Albumin (3.5-5.0) g/dL Globulin (1.7-4.1) g/dL Albumin/Globulin Ratio (1.0-2.8) Procalcitonin 2.32 H (<0.5) ng/mL Imaging Data Chest x-ray: Radiologist's impression: PROCEDURE: XR CHEST 1V INDICATIONS: shortness of breath TECHNIQUE: One view of the chest was acquired. COMPARISON: [facility], , XR CHEST 1V, 02/02/2019, 12:47. FINDINGS: Surgical changes and devices: The a left PICC is present, the tip of which is projected over the cavoatrial junction. Lungs and pleura: There is a large left pleural effusion which is new when compared with prior CT dated 02/02/19. Consolidation or compressive atelectasis is present in the left midlung. The right lung is clear. A nipple shadow is projected over the right lung base. No right pleural effusion. There are diffuse reticular markings throughout both lungs suggesting underlying fibrosis. Mediastinum: Heart and mediastinum are poorly characterized given large left effusion. Bones and chest wall: No suspicious bony lesions. Overlying soft tissues appear unremarkable. IMPRESSION: 1. Large left pleural effusion and left consolidation or compressive atelectasis. 2. Probable pulmonary fibrosis. Dictated by: Maria Luz Silva M.D. on 02/18/2019 at 21:12 chest XR #2: Radiologist's impression: PROCEDURE: XR CHEST 1V INDICATIONS: intubated TECHNIQUE: One view of the chest was acquired. COMPARISON: None. FINDINGS: Surgical changes and devices: The patient has been intubated and the endotrach eal tube is approximately 5.8 cm above the scotty. Lungs and pleura: There is a large left pleural effusion and consolidation or compressive atelectasis of the aerated left lung. The right lung is clear. Mediastinum: Mediastinal contours appear normal. Heart size is normal. Bones and chest wall: No suspicious bony lesions. Overlying soft tissues appear unremarkable. IMPRESSION: Status post intubation. Large left pleural effusion as before. Dictated by: Maria Luz Silva M.D. on 02/18/2019 at 21:33 CT scan - chest: Radiologist's impression: institutional research coordinator report: Multiple mediastinal masses and lymph nodes. Large left pleural effusion. Small pericardial effusion. Large left supraclavicular mass. Left PICC line. Emphysema. There is prominent debris in the airway greater on the left. There is complete atelectasis of the left lower lobe. There is prominent atelectasis with patchy consolidation in the left upper lobe. There is nonspecific peripheral interstitial thickening in the right lung. Indeterminate lobulated nodule medially in the right lung. Indeterminate ill defining enhance thing hepatic lesion. Bilateral adrenal masses. Severe left hydronephrosis similar to previous. There are several masses adjacent to left kidney. Mild ascites. 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 ECG Data Attestation: I personally reviewed and interpreted this ECG as follows: Prior ECG tracings: available for review Interpretation: Sinus rhythm artifact PVCs noted rate 119 MDM Narrative Medical decision making narrative: Multiple discussions with family. They understand that her prognosis is poor. Still at this time she is full code. She has overall remained stable propofol drip and intubated. She is empirically given antibiotics for hospital-acquired organisms vancomycin and cefepime. She has mild leukocytosis of 14 and elevated procalcitonin. She is afebrile normal lactic acid does not appear septic or in septic shock. Respiratory distress is likely from metastatic disease with large left pleural effusion. No PE. Multiple times for ABG however unsuccessful. However patient's O2 is much better now intubated. She has good waveform and satting 99-100%. Critical Care Time Critical Care Time: Yes Total Critical Care Time: 60 Attestation: The high probability of a clinically significant, sudden or life threatening deterioration of the respiratory system(s) required my full and direct attention, intervention and personal management. The aggregate critical care time was 60 minutes. This time is in addition to time spent performing rep orted procedures but includes the following: [x] Data Review and interpretation [x] Patient assessment and monitoring of vital signs [x] Documentation [x] Medication orders and management Discharge Plan Departure Patient Disposition: [facility] Clinical Impression: Hypokalemia, Pleural effusion on left Metastatic renal cell carcinoma Qualifiers: Laterality: left Qualified Code(s): C64.2 - Malignant neoplasm of left kidney, except renal pelvis Urothelial carcinoma of kidney Qualifiers: Laterality: left Qualified Code(s): C64.2 - Malignant neoplasm of left kidney, except renal pelvis Respiratory failure Qualifiers: Chronicity: acute Respiratory failure complication: hypoxia Qualified Code(s): J96.01 - Acute respiratory failure with hypoxia Discharge Date/Time: 02/19/19 02:15 Interventions: ED Discharge Assessment Last Done: 02/19/19 02:58 Prescriptions: No Action naproxen sodium [Aleve] 220 MG tablet 440 mg PO BIDCC Qty: 0 RF: 0 acetaminophen 325 mg Tablet 650 mg PO Q6HR PRN (Reason: As Needed For Fever/Mild Pain) Qty: 30 RF: 0 ondansetron 4 mg Tablet,Disintegrating 4 mg PO Q8HR PRN (Reason: Nausea And Vomiting) Qty: 30 RF: 0 oxycodone 5 mg Tablet 5 mg PO Q4-6H PRN (Reason: Pain (Scale Score 4-6)) Qty: 40 RF: 0 ondansetron 8 mg Tablet,Disintegrating 8 mg PO Q8H PRN (Reason: Nausea) Qty: 30 RF: 0
[2019-02-18 22:32] LABS: Add Manual Diff / Slide Review NO; Basophils Absolute Auto 100 /uL (0-100); Basophils Percent Auto 0.6 % (0-2); Eosinophils Absolute Auto 0 /uL (0-450); Eosinophils Percent Auto 0.4 % (2-4); Hematocrit 34.6 % (36-46); Hemoglobin 10.7 g/dL (12.0-16.0); Lymphocytes Absolute Auto 1000 /uL (1100-4500); Lymphocytes Percent Auto 7.2 % (25-40); Mean Corpuscular HGB Conc 30.9 % (30-36); Mean Corpuscular Hemoglobin 25.6 PG (26-34); Mean Corpuscular Volume 82.6 fL (80-100); Monocytes Absolute Auto 700 /uL (0-900); Monocytes Percent Auto 4.9 % (3-14); Neutrophils Absolute Auto 12200 /uL (1500-7000); Neutrophils Percent Auto 86.9 % (50-75); Platelet Count 457 X10^3/uL (150-400); Red Blood Cell Count 4.19 X10^6/uL (4.0-5.2); Red Cell Distribution Width 18.1 % (11.6-14.8)
[2019-02-18 22:39] LABS: INR 1.2 (0.9-1.3); Prothrombin Time 13.5 SECONDS (10.1-12.7)
[2019-02-18 22:42] LABS: PTT Partial Thromboplastin Tim 33 SECONDS (26.4-36.2)
[2019-02-18 22:43] LABS: Alanine Aminotransferase 8 IU/L (9-52); Albumin 2.4 g/dL (3.5-5.0); Albumin Globulin Ratio 0.7 (1.0-2.8); Alkaline Phosphatase 148 U/L (38-126); Aspartate Aminotransferase 19 IU/L (14-36); Bilirubin Total 0.4 mg/dL (0.2-1.3); Blood Urea Nitrogen 20 mg/dL (7-17); Carbon Dioxide 26 mmol/L (22-32); Chloride 101 mmol/L (98-107); Creatine Kinase 60 U/L (30-135); Estimated Glomerular Filt Rate > 60.0 mL/min (>60); Globulin 3.5 g/dL (1.7-4.1); Glucose 116 mg/dL (80-110); HEMOLYSIS < 15 (0-50); Magnesium 1.6 mg/dL (1.6-2.3); Sodium 134 mmol/L (137-145); Total Protein 5.9 g/dL (6.3-8.2)
[2019-02-18 22:44] LABS: Lactate (Lactic Acid) 1.9 mmol/L (0.7-2.1)
[2019-02-18 22:50] LABS: Potassium 2.3 mmol/L (3.4-5.1)
[2019-02-18 22:53] LABS: B Type Natriuretic Peptide 163 (<100)
[2019-02-18 22:55] LABS: Troponin I < 0.012 ng/mL (0.01-0.034)
[2019-02-18 23:17] LABS: Procalcitonin 2.32 ng/mL (<0.5)
[2019-02-19] VITALS (9 sets, daily range): BP systolic 83–103; BP diastolic 41–80; PULSE 97–113; RESP 17–20; O2SAT 100
[2019-02-19] MEDS: POTASSIUM CHLORIDE 60 MEQ in SODIUM CHLORIDE 0.9% 500 ML 88.333 ML IV (00:13)
[2019-02-19] MEDS: CEFEPIME 1 GM in SODIUM CHLORIDE 0.9% 100 ML 200 ML IV (00:30)
[2019-02-19] MEDS: VANCOMYCIN 750 MG in SODIUM CHLORIDE 0.9% 250 ML 166 ML IV (01:19)
== END 2019-02-19 02:15 | disposition short-term general hospital (02) ==
PROVIDERS: Emergency Provider Emergency Medicine
DX: J96.90 Respiratory failure, unspecified, unspecified whether with hypoxia or hypercapnia (principal); J90 Pleural effusion, not elsewhere classified
CPT/HCPCS: 31500; 36415; 36573; 71045; 71275; 80053; 82550; 83605; 83735; 83880; 84145; 84484; 85025; 85610; 85730; 87040; 93005; 94002; 94640; 94770; 96365; 96366; 96368; 96375; 99285; 99291; 99292; J0330; J0692; J2060; J2704; J2930; J3480; Q9967